=== PATIENT | male | born 1935 | race Caucasian/White ===

== ENCOUNTER 2022-01-30 10:27 | Observation (INO) | payer OTHER ==
--- OUTSIDE RECORDS SUMMARY | 2022-01-30 10:30 | XMS REPORT | Continuity of Care Document ---
:1935 Author Organization [facility] t Address [address] [place] [address] Care Team Providers Name Role Phone TOSIN Primary Care Physician Unavailable CHIRINOS Attending Clinician Unavailable Susan Attending Clinician Unavailable CHAZ Attending Clinician Unavailable Gudelia KERN Attending Clinician Unavailable MARGO Attending Clinician Unavailable ONEYDA Attending Clinician Unavailable TOSIN Attending Clinician Unavailable Susan Admitting Clinician Unavailable TOSIN Admitting Clinician Unavailable Payers Payer Name Policy Type Policy Number Effective Date Expiration Date S ource [facility] MEDICARE [id number] 2020 ADVANTAGE 00:00:00 [employer] CHOICE [id number] 2017 MEDICARE PPO 00:00:00 HU[employer]NA (MEDICARE [id number] REPLACEMENT/ADVANT AGE - PPO) Problems Condition Condition Condition Status Onset Resolution Last Treating Co mments Source Name Details Category Date Date Treatment Clinician Date Primary Primary Problem Active [place] 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, Lobe, bronchus Bronchus or lung or Lung Congestive Congestive Problem Active [facility] heart Heart da failure Failure Medical Group Acute Acute Problem Active [facility] bronchitis Bronchitis [facility] Rhinitis Rhinitis Problem Active [facility] Allergic Allergic Problem Active [facility] rhinitis [facility]initis [facility] Posterior Posterior Problem Active [facility] rhinorrhea Rhinorrhea [facility] Emphysemat Emphysemat Problem Active [facility] ous ous da bronchitis Bronchitis Me dical Group Chronic Chronic Problem Active [place] obstructiv Obstructiv da e e Medical pulmonary Pulmonary Grou p disease Disease with acute with Acute lower Lower respirator Respirator y y infection Infection Gastro-eso Gastro-eso Problem Active [facility] phageal phageal da reflux Reflux Medical disease Disease Group with with esophagiti Esophagiti s s Disorder 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 Esophagus Medi alphonse Group Wheezing Wheezing Problem Active [facility] Cough Cough Problem Active [facility] Hemoptysis Hemoptysis Problem Active [facility] Poisoning Poisoning Problem Active [facility] Respirator Respirator Problem Active [facility] y finding y Finding [facility] 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 Bronchitis [facility] Allergies, Adverse Reactions, Alerts Allergy Allergy Status Severity Reaction(s) Onset Inactive Treating Comm ents Source Name Type Date Date Clinician SPIRONOL DRUG Active High Other 2020-0 MD ACTONE INGREDI 6-12 Anderso 00:00: n 00 SPIRONOL DRUG Active High Other 2019-0 MD ACTONE INGREDI 6-12 Anderso 00:00: n 00 SHRIMP DRUG Active High Anaphylaxis 2017- MD INGREDI 0-29 Anderso 00:00: n 00 IODINE DRUG Active MD INGREDI 2-15 Anderso 00:00: n 00 Social History Smoking Status Start Date Stop Date Source Never Smoker [facility] Medications Ordered Filled Start Stop Current Ordering Indication Dosage Frequency Signature Comments Components Source Medication Medication Date Date Medication? Clinician (SIG) Name Name Amitiza 24 Amitiza 24 No Amitiza 24 [facility] mcg capsule mcg capsule mcg d a capsule Medical Group carvedilol carvedilol No carvedilol [facility] 6.25 mg 6.25 mg 6.25 mg da tablet tablet tablet Medical Group clonidine clonidine No clonidine [facility] HCl 0.2 mg HCl 0.2 mg HCl 0.2 mg da tablet 1 tablet 1 tablet 1 Med ical bid bid bid Group digoxin digoxin No digoxin [facility] Dulera 100 Dulera 100 No Dulera 100 [place] mcg-5 mcg-5 mcg-5 da mcg/actuati mcg/actuati mcg/actuat Medical on HFA on HFA ion HFA Group aerosol aerosol aerosol inhaler inhaler inhaler Inhale 1 Inhale 1 Inhale 1 puff(s) puff(s) puff(s) twice a day twice a day twice a by by day by inhalation inhalation inhalation route as route as route as directed directed directed for 30 for 30 for 30 days. days. days. Eliquis 2.5 Eliquis 2.5 No Eliquis [facility] mg tablet mg tablet 2.5 mg da tablet Medical Group furosemide furosemide No furosemide [facility] 40 mg 40 mg 40 mg da tablet tablet tablet Medical Group isosorbide isosorbide No isosorbide [facility] mononitrate mononitrate mononitrat da ER 30 mg ER 30 mg e ER 30 mg M edical tablet,exte tablet,exte tablet,ext Group nded nded ended release 24 release 24 release 24 hr hr hr levothyroxi levothyroxi No levothyrox [place] ne 150 mcg ne 150 mcg ine 150 da tablet tablet mcg tablet Medic al Group potassium potassium No potassium [place] chloride ER chloride ER chloride da 20 mEq 20 mEq ER 20 mEq Medica l tablet,exte tablet,exte tablet,ext Group nded nded ended release(par release(par release(pa t/cryst) t/cryst) rt/cryst) Suprep Suprep No Suprep [facility] Bowel Prep Bowel Prep Bowel Prep da Kit 17.5 Kit 17.5 Kit 17.5 Med ical gram-3.13 gram-3.13 gram-3.13 Group gram-1.6 gram-1.6 gram-1.6 gram oral gram oral gram oral solution solution solution tramadol 50 tramadol 50 No tramadol [facility] mg tablet mg tablet 50 mg da tablet Medical Group Uloric 40 Uloric 40 No Uloric 40 [place] mg tablet mg tablet mg tablet da Medical Group valsartan valsartan No valsartan [place] 80 mg 80 mg 80 mg da tablet tablet tablet Medical Group Immunizations Ordered Immunization Filled Immunization Date Status Commen ts Source Name Name influenza, high dose influenza, high 2012-05-09 Completed [facility] seasonal dose seasonal 00:00:00 Medical Seferino up Vital Signs Vital Name Observation Time Observation Value Comments Source WEIGHT 2020-03-15 13:27:00 83.4 kg BP Diastolic 2018-09-27 00:00:00 72 mm[Hg] [facility] Height 2018-09-27 00:00:00 70 [in_i] [facility] BMI (Body Mass 2018-09-27 00:00:00 28.3 kg/m2 [facility]) Group BP Systolic 2018-09-27 00:00:00 162 mm[Hg] [facility] Body Weight 2018-09-27 00:00:00 197.4 [lb_av] [facility] Procedures This patient has no known procedures. Encounters Start End Encounter Admission Attending Care Care Encounter Source Date/Time Date/Time Type Type Clinicians Facility Department ID 2021-07-21 2021-07-21 Outpatient [facility] [id number] 00:00:00 00:00:[address] 2021-07-21 2021-07-21 Outpatient [facility] [id number] 00:00:00 00:00:[address] 2021-06-13 2021-06-13 Outpatient EL CHIRINOS, MDA MDA [id number] 08:02:12 08:12:54 VITALIY cadet 2020-08-19 2020-08-19 Outpatient EL CHIRINOS, MDA MDA [id number] MD 12:00:24 15:34:11 VITALIY cadet 2020-08-16 2020-08-16 Outpatient EL CHIRINOS, MDA MDA [id number] MD 08:39:13 08:45:27 VITALIY cadet 2020-08-16 2020-08-16 Outpatient EL CHIRINOS, MDA MDA [id number] MD 00:00:00 00:00:00 VITALIY cadet 2020-06-26 2020-06-26 Outpatient Maluf_C [facility] [id number] [place] 02:40:00 02:40:00 118 [facility] 2020-06-14 2020-06-14 Outpatient EL CHIRINOS, MDA MDA [id number] 07:39:37 07:44:52 VITALIY cadet 2020-04-03 2020-04-03 Outpatient EL CHIRINOS, MDA MDA [id number] 00:00:00 00:00:00 VITALIY cadet 2020-03-15 2020-03-15 Outpatient EL SKOULIDIS, MDA MDA [id number] 13:25:00 14:50:57 NETTE cadet 2020-03-14 2020-03-14 Outpatient EL CHIRINOS, MDA MDA [id number] 09:22:39 09:22:39 VITALIY cadet 2020-03-14 2020-03-14 Outpatient EL KERN, DIOGENES MDA MDA [id number] 08:59:28 09:14:38 Jomar cadet 2020-03-14 2020-03-14 Outpatient JIA SRIVASTAVA MDA MDA [id number] 00:00:00 00:00:00 Jomar cadet 2020-02-01 2020-02-01 Outpatient EL CHIRINOS, MDA MDA [id number] 08:33:58 08:43:57 VITALIY cadet 2020-01-18 2020-01-18 Outpatient FELICITA CALL, MDA MDA [id number] 13:50:34 14:08:00 JOELLE cadet 2020-01-12 2020-01-12 Outpatient EL CHIRINOS, MDA MDA [id number] 12:03:01 12:03:01 VITALIY cadet 2019-08-18 2019-08-18 Outpatient Maluf_C [facility] [id number] [place] 05:02:00 05:02:[address] [place] [address] 2018-09-27 2018-09-27 [facility] [place] - [id number] [facility] 00:00:00 00:00:00 Stepan Franklin MD: [facility] [address], [address], [place] [address] , Ph. [phone] 2017-10-04 2017-10-04 [id number] . 19:59:00 19:59:00 [facility] Results Test Description Test Time Test Comments Results Result Comments Source Thyroid Stimulating Hormone (TSH) 2017-10-05 01:27:00 Test Item Value Reference Range Interpretation Comme nts TSH (test code = TSH) 6.80 mIU/mL 0.270-4.200 H Sed Rate ESR ([place])2017-10-05 00:48:00 Test Item Value Reference Range Interpretation Comments ESR (test code = HESR) 8 mm/Hr 0-9 N Lipid [id number] 21:21:00 Test Item Value Reference Range Interpretation Comments Cholesterol (test 166 mg/dL 0-200 N code = CHOL) Triglycerides (test 304 mg/dL 9-200 H Unable t o calculate, code = TRIG) Trig >400 HDL (test code = 43 mg/dL 40-60 N HDL) Chol/HDL (test code 3.9 Ratio 0.0-5.0 N = CHOLPHDL) LDL, Calculated 62 mg/dL 0-130 N (NOTE)RISK O F HEART (test code = LDLC) DISEASEPu blished by Swedish Heart AssociationAnal yte Optim al Boderline Increased RiskC HOL <200 200-239 >240TRI G <150 150-199 >200HDL Male: >60 <40HDL Female: >60 <50 LDL < 100 130-15 9 >160 LDL NEAR OPTIMAL IS 100- 129 VLDL (test code = 61 mg/dL 5-40 H VLDL) LDL/HDL (test code = 1 LDLPHDL) [id number] 21:21:00 Test Item Value Reference Range Interpretation Comments NT ProBnp (test code = PBNP) 2151 pg/mL 0-449 H Lipid [id number] 21:31:00 Test Item Value Reference Range Interpretation Comments Cholesterol (test 126 mg/dL 0-200 N code = CHOL) Triglycerides (test 268 mg/dL 9-200 H Unable t o calculate, code = TRIG) Trig >400 HDL (test code = 47 mg/dL 40-60 N HDL) Chol/HDL (test code 2.7 Ratio 0.0-5.0 N = CHOLPHDL) LDL, Calculated 25 mg/dL 0-130 N (NOTE)RISK O F HEART (test code = LDLC) DISEASEPu blished by Swedish Heart AssociationAnal yte Optim al Boderline Increased RiskC HOL <200 200-239 >240TRI G <150 150-199 >200HDL Male: >60 <40HDL Female: >60 <50 LDL < 100 130-15 9 >160 LDL NEAR OPTIMAL IS 100- 129 VLDL (test code = 54 mg/dL 5-40 H VLDL) LDL/HDL (test code = 1 LDLPHDL)
--- NOTE | 2022-01-30 11:35 | RAD REPORT ---
EXAM DESCRIPTION: RAD - Chest Single View - 01/30/2022 11:15 am CLINICAL HISTORY: SOB Chest pain. COMPARISON: CHEST SINGLE VIEW dated 12/12/2009; CHEST SINGLE VIEW dated 12/12/2009 FINDINGS: Portable technique limits examination quality. The lungs are grossly clear. The heart is upper limit of normal in size. No displaced fractures.Multi lead pacer/defibrillator device present. IMPRESSION: No acute intrathoracic process suspected.
[2022-01-30 11:41] LABS: Absolute Lymphocytes (CBC) 1.4 K/uL (0.7-4.9); Hematocrit 36.7 % (39.6-49.0); Lymphocytes % 13.6 % (15.3-44.8); MPV 7.6 fL (7.6-11.3); RBC Red Blood Cell Count 4.29 M/uL (4.33-5.43)
[2022-01-30 11:43] LABS: Protime INR 1.17
[2022-01-30 12:17] LABS: Albumin 3.7 g/dL (3.4-5.0); Bilirubin Direct 0.2 mg/dL (0-0.2); Bilirubin Total 0.9 mg/dL (0.2-1.0); Magnesium 2.1 mg/dL (1.8-2.4); Protein, Total 6.9 g/dL (6.4-8.2); Troponin High Sensitivity 44.8 pg/mL (<58.9)
[2022-01-30] MEDS ORDERED: ONDANSETRON 4 MG/2 ML VIAL ONE (12:48)
--- NOTE | 2022-01-30 13:18 | EDPHYS ---
Physician Documentation [facility] Name: Torrey Flores Age: 86 yrs Sex: Male : 1935 Arrival Date: 01/30/2022 Time: 10:30 Bed 20 Private MD: ED Physician Yamil Vogel HPI: 01/30 10:52 This 86 yrs old Male presents to ER via Unassigned with complaints of Shakiness. cp 10:52 The patient or guardian reports chest pain that is located primarily in the anterior cp chest wall. 10:52 Onset: this morning, now resolved. The pain does not radiate. Associated signs and cp symptoms: Pertinent positives: abdominal pain, dizziness, generalized shaking, Pertinent negatives: headache, near syncope, palpitations, syncope, vomiting. Duration: The patient or guardian reports a single episode, that is now resolved. Patient reports he called daughter this morning after he had sudden onset of shaking all over, dizziness, chest pain and abdominal pain. Patient reports he is being evaluated by DR Infante for abdominal pain times 4 months. Had recent blood tests performed and unsure of results. Historical: - Allergies: 11:40 Levaquin; jg9 11:40 Iodine; jg9 11:40 cefepime; jg9 - PMHx: 12:09 Hypothyroidism; Defibrillator; Congestive heart failure; jg9 - Immunization history:: Client reports receiving the 2nd dose of the Covid vaccine, Pneumococcal vaccine is up to date, Flu vaccine is up to date. - Social history:: Smoking status: Patient denies any tobacco usage or history of. ROS: 10:55 Constitutional: Negative for body aches, chills, fever, poor PO intake. cp 10:55 Eyes: Negative for injury, pain, redness, and discharge. cp 10:55 ENT: Negative for drainage from ear(s), ear pain, sore throat, difficulty swallowing, difficulty handling secretions. 10:55 Cardiovascular: Positive for chest pain. 10:55 Respiratory: Negative for cough, shortness of breath, wheezing. 10:55 Abdomen/GI: Positive for abdominal pain, Negative for vomiting, diarrhea, constipation. 10:55 : Negative for urinary symptoms. 10:55 Neuro: Positive for dizziness, Negative for altered mental status, loss of consciousness, syncope, weakness. 10:55 Psych: Positive for anxiety. 10:55 All other systems are negative. Exam: 11:00 Constitutional: The patient appears in no acute distress, alert, awake, cp non-diaphoretic, non-toxic, well developed, well nourished. 11:00 Head/Face: Normocephalic, atraumatic. cp 11:00 Eyes: Periorbital structures: appear normal, Pupils: equal, round, and reactive to light and accomodation, Extraocular movements: intact throughout, Conjunctiva: normal, no exudate, no injection, Sclera: no appreciated abnormality, Lids and lashes: appear normal, bilaterally. 11:00 ENT: External ear(s): are unremarkable, Nose: is normal, Mouth: Lips: moist, Oral mucosa: moist, Posterior pharynx: Airway: no evidence of obstruction, patent. 11:00 Neck: ROM/movement: is normal, is supple, without pain, no range of motions limitations. 11:00 Chest/axilla: Inspection: normal, Palpation: is normal, no crepitus, no tenderness. 11:00 Cardiovascular: Rate: normal, Rhythm: regular, Edema: is not appreciated, JVD: is not appreciated. 11:00 Respiratory: the patient does not display signs of respiratory distress, Respirations: normal, no use of accessory muscles, no retractions, labored breathing, is not present, Breath sounds: are clear throughout, no decreased breath sounds, no stridor, no wheezing. 11:00 Abdomen/GI: Inspection: abdomen appears normal, Bowel sounds: active, all quadrants, Palpation: abdomen is soft and non-tender, in all quadrants. 11:00 Back: pain, is absent, ROM is normal. 11:00 Neuro: Orientation: to person, place \\T\\ time. Mentation: is normal, Motor: moves all fours, strength is normal. 11:20 ECG was reviewed by the Attending Physician. cp Vital Signs: 10:45 BP 138 / 78; Pulse 69; Resp 12; Temp 98.5; Pulse Ox 98% on R/A; Weight 78.93 kg; Height jg9 5 ft. 11 in. (180.34 cm) (R); Pain 2/10; 11:30 BP 104 / 59; Pulse 71; Resp 13 S; Pulse Ox 99% on R/A; Pain 2/10; jg9 12:00 BP 108 / 71; Pulse 72; Resp 17; Pulse Ox 97% on R/A; 9 14:00 BP 134 / 80; Pulse 71; Resp 14 S; Pulse Ox 96% on R/A; 9 10:45 Body Mass Index 24.27 (78.93 kg, 180.34 cm) 9 MDM: 10:43 Patient medically screened. 13:00 Data reviewed: vital signs, nurses notes, lab test result(s), EKG, radiologic studies, cp plain films, and as a result, I will admit patient. 13:00 Test interpretation: by ED physician or midlevel provider: ECG, plain radiologic cp studies. Counseling: I had a detailed discussion with the patient and/or guardian regarding: the historical points, exam findings, and any diagnostic results supporting the discharge/admit diagnosis, lab results, radiology results, the need for further work-up and treatment in the hospital. Physician consultation: More Arroyo MD was called at 12:40, left message on [employer]. 01/30 10:51 Order name: Basic Metabolic Panel; Complete Time: 12:18 01/30 12:19 Interpretation: Normal except: NA 127; K 3.0; CL 86; GLUC 204; BUN 75; CRE 1.98; GFR cp 32; CA 8.4. 01/30 10:51 Order name: CBC with Diff; Complete Time: 11:53 01/30 11:53 Interpretation: Normal except: RBC 4.29; HGB 12.6; HCT 36.7; PLT 140; FLORINDA% 74.8; LYM% cp 13.6. 01/30 10:51 Order name: LFT's; Complete Time: 12:18 01/30 10:51 Order name: Magnesium; Complete Time: 12:18 01/30 10:51 Order name: NT PRO-BNP; Complete Time: 12:18 01/30 12:19 Interpretation: Abnormal: NT PRO-BNP 1826. 01/30 10:51 Order name: PT-INR; Complete Time: 11:53 01/30 10:51 Order name: Troponin HS; Complete Time: 12:18 01/30 13:39 Order name: COVID-19 SARS RT PCR (Document "Date of Onset" if Symptomatic) 01/30 14:00 Order name: CBC with Automated Diff EDMS 01/30 14:00 Order name: CBC with Automated Diff EDMS 01/30 14:00 Order name: Comprehensive Metabolic Panel EDMS 01/30 14:00 Order name: Comprehensive Metabolic Panel EDMS 01/30 14:00 Order name: Comprehensive Metabolic Panel EDMS 01/30 14:00 Order name: Comprehensive Metabolic Panel EDMS 01/30 10:51 Order name: XRAY Chest (1 view); Complete Time: 11:53 01/30 12:39 Order name: CT Head Brain wo Cont; Complete Time: 14:35 cp 01/30 14:35 Interpretation: Report reviewed. 01/30 14:02 Order name: Thyroid Stimulating Hormone EDMS 01/30 14:02 Order name: UR CREAT EDMS 01/30 14:02 Order name: UR SODIUM EDMS 01/30 14:02 Order name: Magnesium EDMS 01/30 14:02 Order name: Magnesium EDMS 01/30 14:02 Order name: Magnesium EDMS 01/30 14:02 Order name: Magnesium EDMS 01/30 14:02 Order name: Troponin High Sensitivity EDMS 01/30 14:02 Order name: Troponin High Sensitivity EDMS 01/30 14:02 Order name: Troponin High Sensitivity EDMS 01/30 15:08 Order name: Digoxin Level EDNM 01/30 10:51 Order name: EKG; Complete Time: 10:52 cp 01/30 10:51 Order name: Cardiac monitoring; Complete Time: 11:30 cp 01/30 10:51 Order name: EKG - Nurse/Tech; Complete Time: 11:20 01/30 10:51 Order name: IV Saline Lock; Complete Time: 12:40 cp 01/30 10:51 Order name: Labs collected and sent; Complete Time: 12:40 cp 01/30 10:51 Order name: O2 Sat Monitoring; Complete Time: 12:40 01/30 14:00 Order name: CONS Physician Consult EDNM 01/30 14:00 Order name: Heart Healthy EDMS EC:20 Rate is 73 beats/min. Rhythm is regular. QRS interval is prolonged at 192 msec. QT cp interval is normal. T waves are Inverted in leads I, aVL, V2. Interpreted by me. Reviewed by me. Administered Medications: 12:45 Drug: Zofran (Ondansetron) 4 mg Route: IVP; Infused Over: 2 mins; Site: right jg9 antecubital; 13:31 Follow up: Response: No adverse reaction jg9 14:24 Drug: Potassium Effervescent Tablet 50 mEq Route: PO; jg9 15:38 Follow up: Response: No adverse reaction jg9 14:24 Drug: NS 0.9% 1000 ml Route: IV; Rate: 50 ml/hr; Site: right antecubital; jg9 14:25 Drug: Potassium Chloride 20 mEq Route: IV; Rate: calculated rate; Site: right jg9 antecubital; Disposition: 15:51 Co-signature as Attending Physician, Yamil Vogel MD. rn Disposition Summary: 01/30/22 13:18 Hospitalization Ordered Hospitalization Status: Inpatient Admission cp Provider: More Arroyo cp Location: Telemetry/MedSurg (Inpatient) cp Condition: Fair cp Problem: new cp Symptoms: have improved cp Bed/Room Type: Standard cp Room Assignment: 405(01/30/22 15:10) eb Diagnosis - Acute kidney failure, unspecified cp - Hypo-osmolality and hyponatremia cp - Hypokalemia cp Forms: - Medication Reconciliation Form cp - SBAR form cp Signatures: Dispatcher [employer] EDYamil Mcdaniels MD MD rn Jasson Martinez PA PA cp Georgiana Bustillos Jennifer, RN RN jg9 Corrections: (The following items were deleted from the chart) 15:10 13:18 cp eb 01/31 11:53 01/30 13:00 Physician consultation: More Arroyo MD was called at 12:50, left message cp on voicemail, cp
--- NOTE | 2022-01-30 13:18 | ER ---
Nurse's Notes [facility] Name: Torrey Flores Age: 86 yrs Sex: Male : 1935 Arrival Date: 01/30/2022 Time: 10:30 Bed 20 Private MD: Diagnosis: Acute kidney failure, unspecified;Hypo-osmolality and hyponatremia;Hypokalemia Presentation: 01/30 10:45 Chief complaint: Patient states: I have been having abdominal pain for 4 months, I went [facility] to have a CT and blood work in [place] last week, awaiting results from Dr. Ervin, but they have not been able to find the source of my abdominal problems and today about 2 hr ago I started shaking uncontrollably and experiencing pain in my chest/abdomen. Coronavirus screen: Vaccine status: Patient reports receiving the 2nd dose of the covid vaccine. Ebola Screen: Patient negative for fever greater than or equal to 101.5 degrees Fahrenheit, and additional compatible Ebola Virus Disease symptoms Patient denies exposure to infectious person. Patient denies travel to an Ebola-affected area in the 21 days before illness onset. Initial Sepsis Screen: Does the patient meet any 2 criteria? No. Patient's initial sepsis screen is negative. Does the patient have a suspected source of infection? No. Patient's initial sepsis screen is negative. Risk Assessment: Do you want to hurt yourself or someone else? Patient reports no desire to harm self or others. Onset of symptoms is unknown. 10:45 Method Of Arrival: Ambulatory [facility] 10:45 Acuity: MARLEN 3 jg9 Triage Assessment: 10:45 General: Appears in no apparent distress. Behavior is calm, cooperative. Pain: 9 Complains of pain in abdomen-RUQ/LUQ Pain began 4 months ago. GI: Reports lower abdominal pain, nausea. Historical: - Allergies: 11:40 Levaquin; jg9 11:40 Iodine; jg9 11:40 cefepime; jg9 - PMHx: 12:09 Hypothyroidism; Defibrillator; Congestive heart failure; jg9 - Immunization history:: Client reports receiving the 2nd dose of the Covid vaccine, Pneumococcal vaccine is up to date, Flu vaccine is up to date. - Social history:: Smoking status: Patient denies any tobacco usage or history of. Screenin:53 Abuse screen: Denies threats or abuse. Denies injuries from another. Nutritional jg9 screening: No deficits noted. Nutritional screening: No deficits noted. Tuberculosis screening: No symptoms or risk factors identified. Fall Risk None identified. Assessment: 10:45 GI: Bowel sounds present X 4 quads. Abd is soft X 4 quads Abdomen is tender to jg9 palpation in right upper quadrant and left upper quadrant. Vital Signs: 10:45 BP 138 / 78; Pulse 69; Resp 12; Temp 98.5; Pulse Ox 98% on R/A; Weight 78.93 kg; Height jg9 5 ft. 11 in. (180.34 cm) (R); Pain 2/10; 11:30 BP 104 / 59; Pulse 71; Resp 13 S; Pulse Ox 99% on R/A; Pain 2/10; jg9 12:00 BP 108 / 71; Pulse 72; Resp 17; Pulse Ox 97% on R/A; jg9 14:00 BP 134 / 80; Pulse 71; Resp 14 S; Pulse Ox 96% on R/A; jg9 10:45 Body Mass Index 24.27 (78.93 kg, 180.34 cm) jg9 ED Course: 10:30 Patient arrived in ED. cl3 10:42 Ashley Moss, FELIX is Primary Nurse. jg9 10:43 Jasson Martinez PA is PHCP. cp 10:43 Yamil Vogel MD is Attending Physician. cp 10:45 Arm band placed on right wrist. jg9 10:55 Triage completed. jg9 11:00 Patient has correct armband on for positive identification. Bed in low position. Call jg9 light in reach. Side rails up X 1. 11:17 XRAY Chest (1 view) In Process Unspecified. EDMS 11:20 EKG done, by ED staff, reviewed by Jasson CASEY. em1 11:30 Inserted saline lock: 22 gauge in right antecubital area, using aseptic technique. jg9 Blood collected. 13:16 More Arroyo MD is Hospitalizing Provider. cp 13:57 CT Head Brain wo Cont In Process Unspecified. EDMS 15:54 No provider procedures requiring assistance completed. jg9 15:55 Patient admitted, IV remains in place. jg9 Administered Medications: 12:45 Drug: Zofran (Ondansetron) 4 mg Route: IVP; Infused Over: 2 mins; Site: right [facility] antecubital; 13:31 Follow up: Response: No adverse reaction jg9 14:24 Drug: Potassium Effervescent Tablet 50 mEq Route: PO; jg9 15:38 Follow up: Response: No adverse reaction jg9 14:24 Drug: NS 0.9% 1000 ml Route: IV; Rate: 50 ml/hr; Site: right antecubital; jg9 14:25 Drug: Potassium Chloride 20 mEq Route: IV; Rate: calculated rate; Site: right [facility] antecubital; Medication: 12:11 VIS not applicable for this client. jg9 Outcome: 13:18 Decision to Hospitalize by Provider. cp 15:54 Admitted to Med/surg accompanied by tech, via wheelchair, room 402, Report called to pascual Zambrano RN 15:55 Condition: stable jg9 15:56 Patient left the ED. jg9 Signatures: Dispatcher [employer] EDMichael Hernandez em1 Jasson Martinez PA PA Que Powell cl3 Ashley Moss, RN RN jg9
[2022-01-30] MEDS ORDERED: MORPHINE 2 MG/ML SYR IV PRN (13:55)
[2022-01-30] MEDS ORDERED: ACETAMINOPHEN 500 MG TAB PO PRN (13:55)
[2022-01-30] MEDS ORDERED: ONDANSETRON 4 MG/2 ML VIAL IV PRN (13:55)
[2022-01-30] MEDS ORDERED: KCL 20 MEQ/100 mL IVPB 100 ML IV ONE (13:55)
[2022-01-30] MEDS ORDERED: POTASSIUM 25 MEQ EFFERV TAB ONE (13:55)
[2022-01-30] MEDS ORDERED: ALBUTEROL 2.5 MG/3 ML NEB SOL NEB PRN ×2 (13:55→16:00)
[2022-01-30] MEDS ORDERED: NA CHLORIDE 0.9% 1,000 ML ONE (13:55)
[2022-01-30] MEDS ORDERED: LORAZEPAM 0.5 MG TABLET PO PRN (13:59)
[2022-01-30] MEDS ORDERED: HYDRALAZINE HCL 20 MG/ML VIAL IV PRN (13:59)
--- NOTE | 2022-01-30 14:12 | RAD REPORT ---
EXAM DESCRIPTION: CT - Head Brain Wo Cont - 01/30/2022 1:55 pm CLINICAL HISTORY: Dizziness, non-specific COMPARISON: No comparisons TECHNIQUE: Axial 5 mm thick images of the head were obtained without IV contrast. All CT scans are performed using dose optimization technique as appropriate and may include automated exposure control or mA/KV adjustment according to patient size. FINDINGS: No intracranial hemorrhage, mass, edema or shift of mid-line structures. No acute cortical based infarction. No cortical edema or sulcal effacement. Patient has mild to moderate for age atrop hy with moderate severity chronic ischemic change. No abnormal extra-axial fluid collections. Ventric les are in proportion to the volume loss. 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 Mastoid air cells and visualized portions of the paranasal sinuses are clear. No acute bony findings. Dense arterial tree calcifications are present. IMPRESSION: No intracranial hemorrhage or mass. No acute intracranial process seen. Atrophy, chronic ischemic change and old infarction changes are present as detailed. Chronic ischemic changes can mask nonhemorrhagic acute infarction. MR brain followup can be obtained if there is ongoing concern for acute ischemia.
--- NOTE | 2022-01-30 14:58 | P.HP ---
Certification for Inpatient Patient admitted to: Observation With expected LOS: <2 Midnights Patient will require the following post-hospital care: None Practitioner: I am a practitioner with admitting privileges, knowledge of patient current condition, hospital course, and medical plan of care. Services: Services provided to patient in accordance with Admission requirements found in Title 42 Section 412.3 of the Code of Federal Regulations Patient History Date of Service: 01/30/22 Reason for admission: Weakness and dizziness History of Present Illness: 86-year-old male with past medical history of hypertension, atrial fibrillation on chronic anticoagulation with Eliquis, history of presumed systolic CHF, follows with Dr. Genao at [place], who developed generalized weakness, feeling of dizziness and intermittent abdominal pain earlier today. He has called the daughter because of the feeling of unwell and was brought to the emergency room. He denies any chest pain now but states he had some mild feeling of chest pain earlier he is unable to elaborate more on the pattern of the chest pain. He denies any recent nausea or vomiting. He denies any recent change in his medication. He states he takes his medication regularly. On arrival in the emergency room EKG shows normal sinus rhythm with mild prolonged QTC. Work-up shows creatinine of 1.98, serum sodium of 127 and potassium of 3.0. He is seen today in the emergency room with his daughter. They state no prior history of kidney disease although daughter state he may have had some kidney problems during management of an infected left elbow plate 2 years ago. He has never had to see a kidney specialist - Past Medical/Surgical History -: Hypertension -: Systolic CHF -: Atrial fibrillation -: Chronic anticoagulation -: Hypothyroidism -: Recurrent gout -: AICD placement -: Left hand fracture complicated with infected plate - Family History Family History: Reviewed- Non-Contributory - Social History Smoking Status: Never smoker Smoking therapy provided: No Patient receptive to therapy: No Alcohol use: No CD- Drugs: No Caffeine use: No Place of Residence: Home Review of Systems 10-point ROS is otherwise unremarkable General: Weakness Cardiovascular: Chest Pain, Light Headedness Physical Examination - Physical Exam General: Alert, In no apparent distress, Oriented x3 HEENT: Atraumatic, Normocephalic Neck: Supple, 2+ carotid pulse no bruit, JVD not distended Respiratory: Clear to auscultation bilaterally, Normal air movement Cardiovascular: Normal pulses, Regular rate/rhythm, Normal S1 S2, Edema Gastrointestinal: Normal bowel sounds, Soft and benign, Non-distended Musculoskeletal: No clubbing, No swelling Neurological: Normal gait, Normal speech, Normal strength at 5/5 x4 extr, Sensation intact, Cranial nerves 3-12 intact - Studies Laboratory Data (last 24 hrs) 01/30/22 11:20: PT 12.9 H, INR 1.17 01/30/22 11:20: WBC 10.6, Hgb 12.6 L, Hct 36.7 L, Plt Count 140 L 01/30/22 11:20: Sodium 127 L, Potassium 3.0 L, BUN 75 H, Creatinine 1.98 H, Glucose 204 H, Magnesium 2.1, Total Bilirubin 0.9, AST 10 L, ALT 18, Alkaline Phosphatase 65 Assessment and Plan - Advance Directives Does patient have a Living Will: No Does patient have a Durable POA for Healthcare: No Physician Review: Patient Assessed, Agree with Above Assessment and Plan Physician Review Additional Text: Impression Symptomatic hypokalemia/hyponatremialikely due to chronic Lasix use History of CHF History of atrial fibrillation Chronic anticoagulation Hypertension Acute kidney injurylikely due to overdiuresis in setting of Entresto use Plan We will admit patient to observation status Will start gentle IV fluid but given history of CHF will limit rate to 40 cc/h over the next 1 L Hold Lasix for now Hold Entresto until creatinine improving Although creatinine at 1.98 unsure if this is patient baseline as family social and no previous record, will monitor with gentle hydration Replete potassium Monitor serum sodium with salt loading Resume digoxin and Coreg Obtain digoxin level Continue Eliquis at 2.5 mg twice daily Advance directivefull code Disposition possible home in a.m. if stable or improving creatinine Time Spent Managing Pts Care (In Minutes): 65
[2022-01-30] MEDS ORDERED: POTASSIUM 25 MEQ EFFERV TAB PO ONE (15:00)
[2022-01-30 16:29] VITALS: BMI 24.3
[2022-01-30 16:39] VITALS: O2SAT 96
[2022-01-30] MEDS: FAMOTIDINE 20 MG TAB PO SCH (16:57)
[2022-01-30] MEDS: NS KCL 20MEQ 20 MEQ/1,000 ML BAG IV SCH (16:57)
[2022-01-30 19:32] LABS: Magnesium 2.2 mg/dL (1.8-2.4); Thyroid Stimulating Hormone 2.24 uIU/mL (0.360-3.740); Troponin High Sensitivity 44.2 pg/mL (<58.9)
[2022-01-30] MEDS: carvediloL 6.25 MG TAB PO SCH (20:31)
[2022-01-30] MEDS: APIXABAN 2.5 MG TABLET PO SCH (20:32)
[2022-01-30] MEDS ORDERED: HEPARIN 5000 UNIT/ML 1 ML VIAL SQ SCH (21:00)
[2022-01-31 04:20] LABS: Absolute Lymphocytes (CBC) 1.8 K/uL (0.7-4.9); Hematocrit 38.3 % (39.6-49.0); Lymphocytes % 21.2 % (15.3-44.8); MPV 7.8 fL (7.6-11.3); RBC Red Blood Cell Count 4.43 M/uL (4.33-5.43)
[2022-01-31 04:46] LABS: Albumin 3.8 g/dL (3.4-5.0); Bilirubin Total 0.7 mg/dL (0.2-1.0); Potassium 3.9 mmol/L (3.5-5.1); Protein, Total 6.9 g/dL (6.4-8.2)
[2022-01-31] MEDS ORDERED: LEVOTHYROXINE SOD 0.05 MG TABLET PO SCH (06:30)
[2022-01-31] MEDS: APIXABAN 2.5 MG TABLET PO SCH (08:41)
[2022-01-31] MEDS: FAMOTIDINE 20 MG TAB PO SCH (08:41)
[2022-01-31] MEDS: carvediloL 6.25 MG TAB PO SCH (08:41)
[2022-01-31] MEDS ORDERED: ZINC SULFATE 220 MG CAP PO SCH (09:00)
[2022-01-31] MEDS ORDERED: DIGOXIN 0.125 MG TABLET PO SCH (09:00)
--- NOTE | 2022-01-31 11:31 | P.PN ---
Subjective Date of Service: 01/31/22 Chief Complaint: Weakness and dizziness Physical Examination - Vital Signs Temperature: 98.3 F Blood Pressure: 121/72 Pulse: 70 Respirations: 16 Pulse Ox (%): 97 - Studies Laboratory Data (last 24 hrs) 01/30/22 11:20: PT 12.9 H, INR 1.17 01/30/22 11:20: WBC 10.6, Hgb 12.6 L, Hct 36.7 L, Plt Count 140 L 01/30/22 11:20: Sodium 127 L, Potassium 3.0 L, BUN 75 H, Creatinine 1.98 H, Glucose 204 H, Magnesium 2.1, Total Bilirubin 0.9, AST 10 L, ALT 18, Alkaline Phosphatase 65 Assessment And Plan Physician Review: Patient Assessed, Agree with Above Assessment and Plan
--- NOTE | 2022-01-31 11:55 | P.CNS ---
Date of Consult: 01/31/22 Reason for Consult: CHRIS/ CKD Requesting Physician: Miguel Caldwell Chief Complaint: Weakness and dizziness History of Present Illness: 86-year-old male with past medical history of hypertension, atrial fibrillation on chronic anticoagulation with Eliquis, history of presumed systolic CHF, follows with Dr. Genao at [place], who developed generalized weakness, feeling of dizziness and intermittent abdominal pain earlier today. He has called the daughter because of the feeling of unwell and was brought to the emergency room. He denies any chest pain now but states he had some mild feeling of chest pain earlier he is unable to elaborate more on the pattern of the chest pain. He denies any recent nausea or vomiting. He denies any recent change in his medication. He states he takes his medication regularly. On arrival in the emergency room EKG shows normal sinus rhythm with mild prolonged QTC. Work-up shows creatinine of 1.98, serum sodium of 127 and potassium of 3.0. He is seen today in the emergency room with his daughter. They state no prior history of kidney disease although daughter state he may have had some kidney problems during management of an infected left elbow plate 2 years ago. He has never had to see a kidney specialist. 10:45 Chief complaint: Patient states: I have been having abdominal pain for 4 months, I went [facility] to have a CT and blood work in [place] last week, awaiting results from Dr. Ervin, but they have not been able to find the source of my abdominal problems and today about 2 hr ago I started shaking uncontrollably and experiencing pain in my chest/abdomen. Coronavirus screen: Vaccine status: Patient reports receiving the 2nd dose of the covid vaccine. Ebola Screen: Patient negative for fever greater than or equal to 101.5 degrees Fahrenheit, and additional compatible Ebola Virus Disease symptoms Patient denies exposure to infectious person. Patient denies travel to an Ebola- affected area in the 21 days before illness onset. Initial Sepsis Screen: Does the patient meet any 2 criteria? No. Patient's initial sepsis screen is negative. Does the patient have a suspected source of infection? No. Patient's initial sepsis screen is negative. Risk Assessment: Do you want to hurt yourself or someone else? Patient reports no desire to harm self or others. Onset of symptoms is unknown. Allergies cefepime Allergy (Verified 01/30/22 15:38) Anaphylaxis iodine Allergy (Verified 01/30/22 15:38) Anaphylaxis levofloxacin [From Levaquin] Allergy (Verified 01/30/22 15:38) Anaphylaxis Home medications list reviewed: Yes Home Medications: Apixaban [Eliquis] 2.5 mg PO DAILY 01/30/22 Clonidine HCl [Catapres*] 0.2 mg PO BID 01/30/22 Digoxin [Lanoxin] 0.125 mg PO DAILY 01/30/22 Febuxostat [Uloric] 40 mg PO DAILY 01/30/22 Furosemide [Lasix] 40 mg PO DAILY 01/30/22 Isosorbide Mononitrate [Isosorbide Mononitrate ER] 30 mg PO DAILY 01/30/22 Levothyroxine Sodium [Levothyroxine] 150 mcg PO DAILY 01/30/22 Potassium Chloride [Klor-Con 10] 10 meq PO DAILY 01/30/22 Valsartan [Diovan] 80 mg PO DAILY 01/30/22 carvediloL [Carvedilol] 6.25 mg PO DAILY 01/30/22 - Past Medical/Surgical History Diabetic: No -: Hypertension -: Systolic CHF -: Atrial fibrillation -: Chronic anticoagulation -: Hypothyroidism -: Recurrent gout -: AICD placement -: Left hand fracture complicated with infected plate - Social History Alcohol use: No CD- Drugs: No Caffeine use: No Place of Residence: Home Review of Systems 10-point ROS is otherwise unremarkable Physical Examination Temp Pulse Resp BP Pulse Ox 98.3 F 70 16 121/72 97 01/31/22 11:31 01/31/22 11:31 01/31/22 11:31 01/31/22 11:31 01/31/22 11:31 General: In no apparent distress, Oriented x3, Cooperative HEENT: Atraumatic Neck: Supple Respiratory: Clear to auscultation bilaterally Cardiovascular: No edema, Regular rate/rhythm Gastrointestinal: Soft and benign, Non-distended Musculoskeletal: No clubbing, No contractures Integumentary: No rashes, No cyanosis Neurological: Normal speech Laboratory Data (last 24 hrs) 01/30/22 11:20: WBC 10.6, Hgb 12.6 L, Hct 36.7 L, Plt Count 140 L 01/30/22 11:20: Sodium 127 L, Potassium 3.0 L, BUN 75 H, Creatinine 1.98 H, Glucose 204 H, Magnesium 2.1, Total Bilirubin 0.9, AST 10 L, ALT 18, Alkaline Phosphatase 65 Imagings Data: EXAM DESCRIPTION: RAD - Chest Single View - 01/30/2022 11:15 am CLINICAL HISTORY: SOB Chest pain. COMPARISON: CHEST SINGLE VIEW dated 12/12/2009; CHEST SINGLE VIEW dated 12/12/2009 FINDINGS: Portable technique limits examination quality. The lungs are grossly clear. The heart is upper limit of normal in size. No displaced fractures.Multi lead pacer/defibrillator device present. IMPRESSION: No acute intrathoracic process suspected. Conclusions/Impression: CHRIS likely due to hypovolemia/ hypotension CKD III -No NSAIDs -Continue gentle IVF Hypokalemia -Replete potassium HTN with CKD/ CHF -Continue Coreg Systolic CHF, chronic -Daily weight -Continue Coreg Gout -Monitor UA Case reviewed with Dr. Caldwell Thank you kindly for the consultation.
[2022-01-31] MEDS: NS KCL 20MEQ 20 MEQ/1,000 ML BAG IV SCH (12:00)
[2022-01-31 13:08] VITALS: BP 139/74; TEMP 98.2
--- NOTE | 2022-01-31 14:29 | P.DS ---
Admission Date: 01/30/22 Discharge Date: 01/31/22 Disposition: ROUTINE DISCHARGE Discharge Condition: GOOD Reason for Admission: Weakness and dizziness Brief History of Present Illness: 86-year-old male with past medical history of hypertension, atrial fibrillation on chronic anticoagulation with Eliquis, history of presumed systolic CHF, follows with Dr. Genao at [place], who developed generalized weakness, feeling of dizziness and intermittent abdominal pain earlier today. He has called the daughter because of the feeling of unwell and was brought to the emergency room. He denies any chest pain now but states he had some mild feeling of chest pain earlier he is unable to elaborate more on the pattern of the chest pain. He denies any recent nausea or vomiting. He denies any recent change in his medication. He states he takes his medication regularly. On arrival in the emergency room EKG shows normal sinus rhythm with mild prolonged QTC. Work-up shows creatinine of 1.98, serum sodium of 127 and potassium of 3.0. He is seen today in the emergency room with his daughter. They state no prior history of kidney disease although daughter state he may have had some kidney problems during management of an infected left elbow plate 2 years ago. He has never had to see a kidney specialist Hospital Course: Pt was admitted and he had IV fluid and he feels much improved today. Creatinine improved from 1.98 on admission to 1.6. He was evaluated by nephrology and was deemed stable for discharge as he was deemed to have issues with perhaps dehydration. he will follow-up with nephrology as scheduled outpatient as well as his primary care doctor. Present issue with volume depletion is deemed to have come from increased dose of Lasix therapy by his acting section chief. He will follow-up with his acting section chief for further recommendation. Vital Signs/Physical Exam: Temp Pulse Resp BP Pulse Ox 98.2 F 70 15 139/74 93 01/31/22 12:00 01/31/22 12:00 01/31/22 12:00 01/31/22 12:00 01/31/22 12:00 General: Alert, Oriented x3 HEENT: Atraumatic, Normocephalic Neck: Supple Respiratory: Normal air movement Cardiovascular: Regular rate/rhythm, Normal S1 S2 Gastrointestinal: Soft and benign Musculoskeletal: No swelling Neurological: Normal speech, Normal strength at 5/5 x4 extr Laboratory Data at Discharge: WBC 8.3 K/uL (4.3-10.9) D 01/31/22 03:47 Hgb 13.1 g/dL (13.6-17.9) L 01/31/22 03:47 Hct 38.3 % (39.6-49.0) L 01/31/22 03:47 Plt Count 119 K/uL (152-406) L 01/31/22 03:47 PT 12.9 SECONDS (9.5-12.5) H 01/30/22 11:20 INR 1.17 01/30/22 11:20 Sodium 135 mmol/L (136-145) L 01/31/22 03:47 Potassium 3.9 mmol/L (3.5-5.1) 01/31/22 03:47 BUN 57 mg/dL (7-18) H 01/31/22 03:47 Creatinine 1.65 mg/dL (0.55-1.3) H 01/31/22 03:47 Glucose 155 mg/dL (74-106) H 01/31/22 03:47 Magnesium 2.2 mg/dL (1.8-2.4) 01/30/22 19:02 Total Bilirubin 0.7 mg/dL (0.2-1.0) 01/31/22 03:47 AST 9 U/L (15-37) L 01/31/22 03:47 ALT 17 U/L (12-78) 01/31/22 03:47 Alkaline Phosphatase 58 U/L (45-117) 01/31/22 03:47 Home Medications: Apixaban [Eliquis] 2.5 mg PO DAILY 01/30/22 Clonidine HCl [Catapres*] 0.2 mg PO BID 01/30/22 Digoxin [Lanoxin] 0.125 mg PO DAILY 01/30/22 Febuxostat [Uloric] 40 mg PO DAILY 01/30/22 Furosemide [Lasix] 40 mg PO DAILY 01/30/22 Isosorbide Mononitrate [Isosorbide Mononitrate ER] 30 mg PO DAILY 01/30/22 Levothyroxine Sodium [Levothyroxine] 150 mcg PO DAILY 01/30/22 Potassium Chloride [Klor-Con 10] 10 meq PO DAILY 01/30/22 Valsartan [Diovan] 80 mg PO DAILY 01/30/22 carvediloL [Carvedilol] 6.25 mg PO DAILY 01/30/22 Diet: Regular Activity: Ad elsa Followup: Al Genao MD [Primary Care Provider] -
--- NOTE | 2022-01-31 17:29 | EKG ---
Test Date: 2022-01-30 Test Time: 11:14:57 Flow Manager: LYN MEASUREMENT RESULTS: Intervals: Rate: 73 SC: QRSD: 192 QT: 482 QTc: 531 [place]: P: SC: QRS: -46 T: 72 INTERPRETIVE STATEMENTS: Ventricular-paced rhythm with occasional premature ventricular complexes Abnormal ECG No previous ECG available for comparison Electronically Signed On 01-31-22 17:27:49 CDT by Prashant Wallcae
== END 2022-01-31 16:25 | disposition home or self-care (01) ==
LOC: ER 10:27 → ERHOLD 13:56 → 4TH 15:46
PROVIDERS: ADMIT Internal Medicine; ATTEND Internal Medicine Nephrology
DX: N17.9 Acute kidney failure, unspecified (principal); I13.0 Hypertensive heart and chronic kidney disease with heart failure and stage 1 through stage 4 chronic kidney disease, or unspecified chronic kidney disease; N18.30 Chronic kidney disease, stage 3 unspecified; I50.22 Chronic systolic (congestive) heart failure; E86.9 Volume depletion, unspecified; E87.6 Hypokalemia; E87.1 Hypo-osmolality and hyponatremia; I48.91 Unspecified atrial fibrillation; M10.9 Gout, unspecified; E03.9 Hypothyroidism, unspecified; Z95.810 Presence of automatic (implantable) cardiac defibrillator; Z79.01 Long term (current) use of anticoagulants; Z79.899 Other long term (current) drug therapy; Z88.1 Allergy status to other antibiotic agents; Z88.3 Allergy status to other anti-infective agents; Z91.041 Radiographic dye allergy status; Z20.822 Contact with and (suspected) exposure to COVID-19
CPT/HCPCS: 93005; 85025 ×2; 80048; 36415; 83735 ×2; 85610; 80162; 80076; 84443; 84484 ×3; 80053; 83880; 70450; 71045; 96375; 96374; 99285; U0003; J3480 ×3; J7030; J2405; G0378

== ENCOUNTER 2022-02-24 07:27 | Emergency (ER) | payer OTHER ==
[2022-02-24] MEDS ORDERED: HYDROCODONE/APAP 5/325 MG TAB ONE (08:30)
--- NOTE | 2022-02-24 08:41 | RAD REPORT ---
EXAM DESCRIPTION: RAD - Wrist Right 3 View - 02/24/2022 8:24 am CLINICAL HISTORY: Right wrist pain FINDINGS: No fracture or dislocation noted. Marked arthritis first carpometacarpal joint consisting of subchondral sclerosis, osteophytes and vikram nt space narrowing. There is also subluxation of the first metacarpal.
--- NOTE | 2022-02-24 10:28 | EDPHYS ---
Physician Documentation [facility] Name: Torrey Flores Age: 86 yrs Sex: Male : 1935 Arrival Date: 02/24/2022 Time: 07:28 Bed DIS3 Private MD: Abhinav Hoang T ED Physician Ben Daily HPI: 02/24 08:35 This 86 yrs old Male presents to ER via Ambulatory with complaints of Wrist Pain, Wrist ms3 swelling. 08:35 The patient or guardian reports pain, swelling. The complaints affect the right wrist ms3 diffusely. Context: The problem was sustained at home, resulted from an unknown cause. Onset: The symptoms/episode began/occurred 4 day(s) ago. Modifying factors: The symptoms are alleviated by nothing, the symptoms are aggravated by nothing. Associated signs and symptoms: The patient has no apparent associated signs or symptoms. Historical: - Allergies: 08:02 cefepime; jl7 08:02 Iodine; jl7 08:02 Levaquin; jl7 - Home Meds: 08:02 carvedilol oral [Active]; Digoxin Oral [Active]; Furosemide Oral [Active]; apixaban jl7 oral [Active]; 08:13 febuxostat oral [Active]; jl7 - PMHx: 08:02 Congestive heart failure; defibrillator; Hypothyroidism; lung cancer; Hypertensive jl7 disorder; Atrial fibrillation; - Social history:: Smoking status: Patient denies any tobacco usage or history of. ROS: 08:35 Constitutional: Negative for fever, and chills. Neck: Negative for injury, pain, and ms3 swelling, Cardiovascular: Negative for chest pain, and palpitations. Respiratory: Negative for shortness of breath, cough, wheezing, and pleuritic chest pain, Abdomen/GI: Negative for abdominal pain, nausea, vomiting, diarrhea, and constipation, MS/Extremity: Negative for injury and deformity. 08:35 MS/extremity: Positive for pain, swelling. 08:35 All other systems are negative. Exam: 08:35 Hand exam: Exam is positive for pain, swelling, tenderness, ROM: limited active range ms3 of motion due to pain, in the right wrist, limited passive range of motion due to pain, in the right wrist. 08:35 Constitutional: This is a well developed, well nourished patient who is awake, alert, and in no acute distress. Head/Face: Normocephalic, atraumatic. Neck: Trachea midline, no cervical lymphadenopathy. Supple, full range of motion without nuchal rigidity, or vertebral point tenderness. No Meningismus. Chest/axilla: Normal chest wall appearance and motion. Nontender with no deformity. Cardiovascular: Regular rate and rhythm with a normal S1 and S2. No gallops, murmurs, or rubs. Normal PMI, no JVD. No pulse deficits. Respiratory: Lungs have equal breath sounds bilaterally, clear to auscultation and percussion. No rales, rhonchi or wheezes noted. No increased work of breathing, no retractions or nasal flaring. Skin: Warm, dry with normal turgor. Normal color with no rashes, no lesions, and no evidence of cellulitis. Psych: Awake, alert, with orientation to person, place and time. Behavior, mood, and affect are within normal limits. 08:35 Musculoskeletal/extremity: Extremities: noted in the right wrist: pain, swelling, tenderness. Vital Signs: 07:59 BP 141 / 88; Pulse 70; Resp 15; Temp 97.9; Pulse Ox 96% on R/A; Weight 79.38 kg; Height jl7 6 ft. 0 in. (182.88 cm); Pain 10/10; 07:59 Body Mass Index 23.73 (79.38 kg, 182.88 cm) 7 MDM: 08:35 Differential diagnosis: Gout vs wrist sprain vs fracture vs cellulitis. Data reviewed:. ms3 10:27 Patient medically screened. ms3 02/24 08:12 Order name: XRAY Wrist RIGHT 3 view; Complete Time: 09:59 7 02/24 10:21 Order name: Wrist Splint; Complete Time: 10:38 ms3 Administered Medications: 08:45 Drug: HYDROcodone-acetaminophen 5 mg-325 mg 1 tabs Route: PO; 7 09:15 Follow up: Response: No adverse reaction; Pain is unchanged, physician notified jl7 10:37 Drug: Colchicine-Probenecid 2 tabs Route: PO; jl7 10:38 Follow up: Response: Medication administered at discharge. 7 Disposition Summary: 02/24/22 10:27 Discharge Ordered Location: Home ms3 Condition: Stable ms3 Diagnosis - Pain in right wrist ms3 Followup: ms3 - With: Abhinav Hoang MD - When: 1 - 2 days - Reason: Recheck today's complaints Discharge Instructions: - Discharge Summary Sheet jmm - Joint Pain ms3 - Arthritis ms3 - Musculoskeletal Pain ms3 Forms: - Medication Reconciliation Form ms3 - Thank You Letter ms3 - Antibiotic Education ms3 - Prescription Opioid Use ms3 Prescriptions: - colchicine 0.6 mg Oral tablet - take 1 tablet by ORAL route once daily; 10 tablet; Refills: 0, Product jmm Selection Permitted Signatures: Dispatcher [employer] Justus Ocampo RN RN jl7 Ben Daily DO DO ms3 Corrections: (The following items were deleted from the chart) 08:06 08:02 Home Meds: APIXAB; jl7 jl7 08:06 08:02 Home Meds: FUROSE; jl7 jl7 08:06 08:02 Home Meds: DIGOXI; jl7 jl7
--- NOTE | 2022-02-24 10:28 | ER ---
Nurse's Notes [facility] Name: Torrey Flores Age: 86 yrs Sex: Male : 1935 Arrival Date: 02/24/2022 Time: 07:28 Bed DIS3 Private MD: Abhinav Hoang T Diagnosis: Pain in right wrist Presentation: 02/24 07:59 Chief complaint: Patient states: Right wrist pain and swelling x 4 days, denies trauma. jl7 Hx of gout, denies having gout in this area before. Coronavirus screen: At this time, the client does not indicate any symptoms associated with coronavirus-19. Ebola Screen: No symptoms or risks identified at this time. Initial Sepsis Screen: Does the patient meet any 2 criteria? No. Patient's initial sepsis screen is negative. Does the patient have a suspected source of infection? No. Patient's initial sepsis screen is negative. Risk Assessment: Do you want to hurt yourself or someone else? Patient reports no desire to harm self or others. Onset of symptoms was February 20, 2022. Care prior to arrival: None. 07:59 Method Of Arrival: Ambulatory [facility] 07:59 Acuity: MARLEN 3 jl7 Triage Assessment: 08:02 General: Appears in no apparent distress. uncomfortable, Behavior is calm, cooperative, jl7 appropriate for age. Pain: Complains of pain in right wrist Pain currently is 10 out of 10 on a pain scale. Neuro: Level of Consciousness is awake, alert, obeys commands, Oriented to person, place, time, situation. Cardiovascular: Patient's skin is warm and dry. Respiratory: Airway is patent Respiratory effort is even, unlabored, Respiratory pattern is regular, symmetrical. Derm: Skin is pink, warm \T\ dry. Musculoskeletal: Swelling present in right wrist and hand. Historical: - Allergies: 08:02 cefepime; jl7 08:02 Iodine; jl7 08:02 Levaquin; jl7 - Home Meds: 08:02 carvedilol oral [Active]; Digoxin Oral [Active]; Furosemide Oral [Active]; apixaban jl7 oral [Active]; 08:13 febuxostat oral [Active]; jl7 - PMHx: 08:02 Congestive heart failure; defibrillator; Hypothyroidism; lung cancer; Hypertensive jl7 disorder; Atrial fibrillation; - Social history:: Smoking status: Patient denies any tobacco usage or history of. Screenin:38 Abuse screen: Denies threats or abuse. Denies injuries from another. Nutritional jl7 screening: No deficits noted. Tuberculosis screening: No symptoms or risk factors identified. Fall Risk None identified. Vital Signs: 07:59 BP 141 / 88; Pulse 70; Resp 15; Temp 97.9; Pulse Ox 96% on R/A; Weight 79.38 kg; Height jl7 6 ft. 0 in. (182.88 cm); Pain 10; 07:59 Body Mass Index 23.73 (79.38 kg, 182.88 cm) jl7 ED Course: 07:28 Patient arrived in ED. mr 07:29 Abhinav Hoang MD is Private Physician. mr 07:59 Justus Kearns, FELIX is Primary Nurse. jl7 08:02 Triage completed. jl7 08:02 Arm band placed on right wrist. jl7 08:03 Ben Daily DO is Attending Physician. ms3 08:04 Hu Aragon PA is PHCP. jmm 08:25 XRAY Wrist RIGHT 3 view In Process Unspecified. EDMS 10:27 Abhinav Hoang MD is Referral Physician. ms3 10:38 Patient has correct armband on for positive identification. jl7 10:38 No provider procedures requiring assistance completed. Patient did not have IV access jl7 during this emergency room visit. Velcro wrist splint applied to right wrist. Administered Medications: 08:45 Drug: HYDROcodone-acetaminophen 5 mg-325 mg 1 tabs Route: PO; jl7 09:15 Follow up: Response: No adverse reaction; Pain is unchanged, physician notified jl7 10:37 Drug: Colchicine-Probenecid 2 tabs Route: PO; jl7 10:38 Follow up: Response: Medication administered at discharge. jl7 Medication: 10:38 VIS not applicable for this client. jl7 Outcome: 10:27 Discharge ordered by . ms3 10:38 Discharged to home ambulatory, with family. jl7 10:38 Condition: stable 10:38 Discharge instructions given to patient, Instructed on discharge instructions, follow up and referral plans. medication usage, Demonstrated understanding of instructions, follow-up care, medications, Prescriptions given X 1. 10:39 Patient left the ED. jl7 Signatures: Dispatcher [employer] EDHu Colon PA PA jmm Rivera, Mary mr Justus Kearns, RN RN jl7 Ben Daily DO DO ms3 Corrections: (The following items were deleted from the chart) 08:06 08:02 Home Meds: APIXAB; jl7 jl7 08:06 08:02 Home Meds: FUROSE; jl7 jl7 08:06 08:02 Home Meds: DIGOXI; jl7 jl7
[2022-02-24] MEDS ORDERED: COLCHICINE 0.6 MG TAB ONE (10:41)
[2022-02-24 10:49] VITALS: BP 141/88; TEMP 97.9; O2SAT 96
== END 2022-02-24 10:39 | disposition home or self-care (01) ==
LOC: ER 07:27
DX: M25.531 Pain in right wrist (principal); Z88.1 Allergy status to other antibiotic agents; Z91.048 Other nonmedicinal substance allergy status

== ENCOUNTER 2023-07-01 19:38 | Inpatient (IN) | payer OTHER ==
--- OUTSIDE RECORDS SUMMARY | 2023-07-01 19:48 | XMS REPORT | Continuity of Care Document ---
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 MATE Zyloprim 2019-0 No Notes: Memoria 1-14 (Same as: l 15:00: Zyloprim) apixaban 2018-0 No Notes: Memoria 1-14 Same as: l 15:00: Eliquis Saline 2019-0 No Notes: Memoria Flush 0.9% 1-14 (Same as: l 15:00: BD Posiflush) valsartan 2018-0 No Notes: Memori a 1-14 Same as l 15:00: Diovan lubiproston 2019-0 No 24 Memori a e 1-14 microgram, l 15:00: 3 cap, [place] 00 Route: PO, Drug form: CAP, BID, Dosing Weight 94.545, kg, Start date: 08/22/18 9:00:00 CARGO MATE, Duration: 30 day, Stop date: 09/20/18 17:00:00 CARGO MATE Lasix 2019-0 No Notes: Memoria 1-14 (Same as: l 14:00: Lasix) MEDICATION WASTE Product Size: 40 mg Product Wasted: ___ mg Potassium 2019-0 No 10 mEq, 1 Mem oria Chloride 1-14 tab, l 14:00: Route: PO, [place] 00 Drug form: ERTAB, Breakfast, Dosing Weight 94.545, kg, Start date: 08/22/18 8:00:00 CARGO MATE, Duration: 30 day, Stop date: 09/20/18 8:00:00 CARGO MATE pantoprazol 2019-0 No 40 mg, 1 Me moria e 1-14 tab, l 13:30: Route: PO, [place] Drug form: ECTAB, Before Breakfast, Dosing Weight 94.545, kg, Start date: 08/22/18 7:30:00 CARGO MATE, Duration: 30 day, Stop date: 09/20/18 7:30:00 CARGO MATE Isosorbide 2019-0 No 30 mg, 1 Mem oria 1-14 tab, l 13:30: Route: PO, [place] Drug form: ERTAB, Before Breakfast, Dosing Weight 94.545, kg, Start date: 08/22/18 7:30:00 CARGO MATE, Duration: 30 day, Stop date: 09/20/18 7:30:00 CARGO MATE albuterol 2018-0 No Notes: SEE Me moria 1-14 RT l 13:00: DOCUMENTAT [place] ION (Same as: Proventil) Thyroxine 0 No 150 Memoria 1-14 microgram, l 12:30: 2 tab, [place] Route: PO, Drug form: TAB, Q630AM, Dosing Weight 94.545, kg, Start date: 08/22/18 6:30:00 CARGO MATE, Duration: 30 day, Stop date: 09/20/18 6:30:00 CARGO MATE Pulmicort 2018- No Notes: Memori a Respules 1-14 (Same As: l 08:10: Pulmicort [place] respule). Clonidine 2018-0 No Notes: Memori a Hydrochlori 1-14 (Same As: l de 0.2 MG 05:00: Catapres) Her gutierrez Oral Tablet 00 Coreg No 6.25 mg, 1 Memori a 1-14 tab, l 05:00: Route: PO, [place] Drug form: TAB, QPM, Dosing Weight 94.545, kg, Start date: 08/21/18 23:00:00 CARGO MATE, Duration: 30 day, Stop date: 09/20/18 14:00:00 CARGO MATE BD Normal 2018-0 No Notes: Memori a Saline 1-14 (Same as: l Flush 04:24: BD [place] Posiflush) Docusate 2018-0 No 100 mg, 1 Castillo deisi Sodium 100 1-14 cap, l MG Oral 03:53: Route: PO, Herm keerthi Capsule 00 Drug form: [Colace] CAP, BID, Dosing Weight 94.545, kg, PRN Constipati on, Start date: 08/21/18 21:53:00 CARGO MATE, Duration: 30 day, Stop date: 09/20/18 21:52:00 CARGO MATE lubiproston Yes 24 Memori a e 24 mcg 1-14 microgram l oral 03:52: = 1 cap, [place] capsule 00 PO, BID, # 60 cap, 0 Refill(s) Albuterol No Notes: SEE Me moria 0.83 MG/ML 1-14 RT l Inhalant 03:52: DOCUMENTAT Her gutierrez Solution 00 ION (Same as: Proventil) Saline No Notes: Memoria Flush 0.9% 1-14 (Same as: l 03:39: BD [place] Posiflush) pantoprazol Yes 40 mg, PO, Memoria e 1-14 Daily, 0 l 02:37: Refill(s) [place] 00 Potassium Yes 10 mEq, Memor ia Chloride 1-14 PO, Daily, l 02:37: 0 [place] 00 Refill(s) Lasix No Notes: Memoria 1-13 (Same as: l 23:43: Lasix) [place] MEDICATION WASTE Product Size: 40 mg Product Wasted: 0___ mg Solu-Medrol No Notes: Castillo deisi -13 (Same l 22:14: as:Solu-ME [place] 00 DROL, A-Methapre d) Benadryl No Notes: Memoria 1-13 (Same as: l 22:14: Benadryl) [place] Lasix No Notes: Memoria 1-11 (Same as: l 21:01: Lasix) [place] MEDICATION WASTE Product Size: 40 mg Product Wasted: ___ mg Saline No Notes: Memoria Flush 0.9% 11 (Same as: l 19:36: BD [place] Posiflush) polyethylen No 17 gm, PO, Memoria e glycol 1-08 TID, X 30 l 3350 oral 17:21: day, # 90 Her gutierrez powder for 16 ea, 0 reconstitut Refill(s), ion Pharmacy: [facility] polyethylen No 17 gm, PO, Memoria e glycol 1-08 Daily, X l 3350 oral 17:16: 14 day, # Her gutierrez powder for 00 14 ea, 0 reconstitut Refill(s), ion Pharmacy: [facility] pantoprazol No 40 mg = 1 M emoria e 40 mg 1-08 tab, PO, l oral 17:16: Before [place] enteric 00 Dinner, # coated 30 tab, 0 tablet Refill(s), Pharmacy: [facility] lubiproston No 24 Memori a e 24 mcg 1-08 microgram l oral 17:16: = 1 cap, [place] capsule 00 PO, BID, # 60 cap, 0 Refill(s), Pharmacy: [facility] Potassium No 10 mEq = 1 Me moria Chloride 10 1-08 tab, PO, l MEQ 17:16: Daily, [place] Extended 00 take with Release lasix, # Tablet 30 tab, 1 [Klor-Con] Refill(s), Pharmacy: [facility] potassium No Notes: Memori a chloride 20 1-08 (Same as: l mEq oral 17:12: K-Dur 20) Herm keerthi tablet, 00 For extended patients release unable to swallow tablet, dissolve in one half glass of water. Allow about 2 minutes for the tablets to disintegra te. Stir before giving to prepare slurry and administer . Please exclude Patient s with feeding tube less than 14 [place] (Dobhoff, J-tube etc) and pediatric and patients. Lasix No Notes: Memoria 1-08 (Same as: l 15:00: Lasix) May [place] 00 cause GI upset. Give with food or milk. NS 1000 mL No 1,000 mL, Me moria -08 Rate: 150 l 14:48: ml/hr, [place] 00 Infuse over: 6.7 hr, Route: IV, Dosing Weight 93.727 kg, Total Volume: 1,000, Start date: 08/16/18 8:48:00 CARGO MATE, Duration: 30 day, Stop date: 09/15/18 8:47:00 CARGO MATE, 2.19, m2 Amitiza No Notes: Memoria 1-07 Same as l 23:00: Amitiza [place] 00 (Do Not Crush) Non Formulary Miralax No Notes: Memoria 1-07 Dissolve l 15:00: in 8 oz of [place] 00 water or juice. (Same as: Miralax) Zyloprim No Notes: Memoria 1-07 (Same as: l 15:00: Zyloprim) [place] valsartan No Notes: Memori a 1- Same as l 15:00: Diovan [place] 00 Isosorbide No Notes: Memor ia 08-15 (Same l 15:00: as:Imdur) [place] "Do Not Crush" Take on empty stomach/ full glass of water. Do not crush Uloric No 40 mg, Memoria 08-15 Route: PO, l 15:00: Drug form: [place] 00 TAB, Daily, Dosing Weight 93.727, kg, Start date: 08/15/18 9:00:00 CARGO MATE, Duration: 30 day, Stop date: 09/13/18 9:00:00 CARGO MATE apixaban No Notes: Memoria -07 Same as: l 15:00: Eliquis [place] 00 Thyroxine No Notes: Memori a -07 Take 1 l 12:30: hour [place] 00 before or 2 hours after meal; Enteral feeds may interefere with the absorption of this medication . (Same as: Levothroid ) Dulera 100 No 2 puff, Castillo deisi mcg-5 08-14 Route: l mcg/inh 23:00: INHALER, Joe n inhalation 00 Drug Form: aerosol AERO, Dosing Weight 93.727, kg, BID, Start date: 08/14/18 17:00:00 CARGO MATE, Duration: 30 day, Stop date: 09/13/18 9:00:00 CARGO MATE Protonix No Notes: Memoria 1-06 Tablet l 22:30: should not [place] 00 be chewed or crushed. (Same as: Protonix) Lasix No Notes: Memoria 1-06 (Same as: l 22:00: Lasix) [place] 00 MEDICATION WASTE Product Size: 40 mg Product Wasted: ___ mg albuterol No Notes: SEE Me moria 08-14 RT l 21:00: DOCUMENTAT [place] ION (Same as: Proventil) Clonidine No Notes: Memori a Hydrochlori 08-14 (Same As: l de 0.2 MG 20:00: Catapres) Her gutierrez Oral Tablet 00 Coreg No Notes: Memoria 08-14 Give with l 20:00: food. [place] 00 (Same As: Coreg) Pulmicort No Notes: Memori a Respules 08-14 (Same As: l 19:24: Pulmicort [place] 00 respule). Albuterol No Notes: Memori a 0.833 MG/ML 08-14 (Same as: l / 18:06: Duoneb) Ipratropium 00 [place] 0.167 MG/ML Inhalant Solution Lactulose No Notes: Memori a 667 MG/ML 08-14 (Same l Oral 16:23: as:Chronul [place] Solution 00 ac) Acetaminoph No Notes: Do M emoria en 08-14 not exceed l 16:21: 4 gm/day. (Same as: Tylenol) Ondansetron No Notes: Castillo deisi 08-14 (Same as: l 16:21: Zofran) MEDICATION WASTE Product Size: 4 mg Product Wasted: ___ mg Lasix No 40 mg, Memoria 08-14 Route: l 14:12: IVP, Drug form: INJ, ONCE, Dosing Weight 93.636, kg, Priority: STAT, Start date: 08/14/18 8:12:00 CARGO MATE, Stop date: 08/14/18 8:12:00 CARGO MATE carvedilol Yes Vianca Stacy 1 tab(s) Memoria 08-12 l 03:01: valsartan Yes Hyon Regis 1 tab(s) Memoria 04 l 03:01: levothyroxi Yes Vianca Stacy 1 tab(s) Memoria ne 1-04 l 03:01: furosemide 2019-0 Yes Hyshruti Stacy 1 tab(s) Memoria 1-04 l 03:01: isosorbide 2018-0 Yes Hyshruti Stacy 1 tab(s) Memoria mononitrate 1-04 l 03:01: clonidine 2019-0 Yes Hyshruti Stacy 1 tab(s) Memoria 1-04 l 03:01: Dulera 2018-0 Yes Vianca Stacy 2 puff(s) M emoria 1-04 l 03:01: Eliquis 2018-0 Yes Hyshruti Stacy 1 tab(s) M emoria 1-04 l 03:01: Suprep 2018-0 Yes Vianca Stacy As Memori a Bowel Prep -02 directed l Kit 00:00: Magnesium 2017-08 Yes Ali Zakir 150 ml M emoria Citrate 2-10 l 00:00: Histex-DM 2017-08 Yes Ali Zakir 5ml Mem oria 2-05 l 00:00: Lactulose 2017-08 Yes Ali Zakir 15 ml Me moria 2-03 l 00:00: Acetaminoph 2017-08 No 1-2 tab, Me moria en 325 MG / 0-28 PO, Q4-6H, l Hydrocodone 03:59: PRN Pain, H ermann Bitartrate 00 # 20 tab, 5 MG Oral 0 Tablet Refill(s) [Dudley 5/325] Ondansetron 2017-08 No 4 mg, Memor ia 0-28 Route: l 00:36: IVP, Drug [place] 00 form: INJ, ONCE, Dosing Weight 90.727, kg, Priority: STAT, Start date: 06/04/18 19:36:00 CDT, Stop date: 06/04/18 19:36:00 CDT Sodium 2017-08 No 500 mL, Memoria Chloride 0-28 500 ml/hr, l 0.9% 00:36: Infuse [place] (Bolus) IV 00 Over: 1 hr, Route: IV, ONCE, Priority: STAT, Dosing Weight 90.727 kg, Start date: 06/04/18 19:36:00 CDT, Stop date: 06/04/18 19:36:00 CDT Morphine 2018-1 No 4 mg, Memoria 0-28 Route: l 00:36: IVP, ONCE, Dosing Weight 90.727, kg, Priority: STAT, Start date: 06/04/18 19:36:00 CDT, Stop date: 06/04/18 19:36:00 CDT Valsartan 2017- Yes Ali Zakir TAKE 1 M emoria 3-28 TABLET l 02:46: DAILY Furosemide 2017-0 Yes Ali Zakir TAKE 1 Memoria 3-28 TABLET l 02:46: DAILY Isosorbide 2017- Yes Ali Zakir TAKE 1 Memoria Mononitrate 3-28 TABLET l CR 02:46: TWICE A DAY Dulera Yes Ali Zakir 2 puffs Mem oria 3-28 l 02:46: Amiodarone 2017- Yes Ali Zakir TAKE 1 Memoria HCl 3-28 TABLET l 02:46: DAILY Clonidine 2017-0 Yes Ali Zakir 1 tablet Memoria HCl 3-28 l 02:46: Albuterol 2017-0 Yes Ali Zakir 3 ml Mem oria Sulfate 3-28 l 02:46: Levothyroxi 2018-0 Yes Ali Zakir TAKE 1 Memoria ne Sodium 3-28 TABLET l 02:46: DAILY Valsartan 2017-0 Yes Ali Zakir 1 tablet Memoria 3-28 l 02:46: Eliquis 2018-0 Yes Ali Zakir 1 tablet M emoria 3-28 MD l 00:00: Dulera 2017-0 Yes Ali Zakir 2 puffs Mem oria 3-28 MD l 00:00: Rosuvastati 2018-0 Yes Ali Zakir 1 tablet Memoria n Calcium 3-28 l 00:00: Valsartan 2018-0 Yes Ali Zakir 1 tablet Memoria 3-28 MD l 00:00: Ipratropium 2018-0 Yes Ali Zakir 3 ml M emoria -Albuterol 3-28 MD l 00:00: Furosemide 2018-0 Yes Ali Zakir 1 tablet Memoria 3-28 l 00:00: Amiodarone 2018-0 Yes Ali Zakir 1 tablet Memoria HCl 3-28 l 00:00: Uloric 2018-0 Yes Ali Zakir 1 tablet Me moria 3-28 l 00:00: Isosorbide 2018-0 Yes Ali Zakir 1 tablet Memoria Mononitrate 3-28 MD in the l 00:00: morning Levothyroxi 2017-0 Yes Ali Zakir 1 tablet Memoria ne Sodium 3-28 on an l 00:00: empty stomach in the morning Carvedilol 2017- Yes Ali Zakir 1 tablet Memoria 3-28 MD l 00:00: PredniSONE 2017- Yes Ali Zakir 2 tablet Memoria 1-08 l 00:00: MiraLax 2018-0 Yes Ali Zakir as Memor ia 1-08 directed l 00:00: Famotidine 2016- Yes 20 mg = 1 Me moria 20 MG Oral 04 tab, PO, l Tablet 16:02: BID, # 14 Joe n [Pepcid] 00 tab, 0 Refill(s) Sulfamethox Yes 1 tab, PO, Memoria azole 800 04 BID, X 10 l MG / 16:02: day, # 20 [place] Trimethopri 00 tab, 0 m 160 MG Refill(s) Oral Tablet [Bactrim] Cephalexin Yes 500 mg = 1 M emoria 500 MG Oral 04-12 cap, PO, l Capsule 16:02: QID, X 10 Luz Maria nn [Keflex] 00 day, # 40 cap, 0 Refill(s) Albuterol Yes Ali Zakir 3 ml Mem oria Sulfate 6-23 l 02:45: Sodium No 25 mL, Memoria Chloride 12-05 Route: IV, l 0.9% IV 05:36: Start date: 12/05/16 0:36:00 CDT, Duration: 30 day, Stop date: 01/04/17 0:35:00 CDT, PRN Line Flush Zofran No 4 mg, Memoria 12-05 Route: l 04:09: IVP, Drug form: INJ, ONCE, Dosing Weight 89.591, kg, Priority: STAT, Start date: 12/04/16 23:09:00 CDT, Stop date: 12/04/16 23:09:00 CDT Saline 2016-0 No Notes: Memoria Flush 0.9% 12-05 (Same as: l 03:23: BD Posiflush) Furosemide Yes Ali Zakir 1 tab M emoria 4-25 l 02:45: Valsartan Yes Ali Zakir 1 tablet Memoria 4-25 l 02:45: Isosorbide Yes Ali Zakir 1 tablet Memoria Dinitrate 4-25 l 02:45: Amiodarone Yes Ali Zakir 1 tablet Memoria HCl 4-25 l 02:45: Crestor Yes Ali Zakir 1 tablet M emoria 4-25 l 02:45: Apixaban Yes Ali Zakir 1 tablet Memoria 4-25 l 02:45: [place] 18 Coreg Yes Ali Zakir 1 tablet Mem oria 4-25 l 02:45: Levofloxaci Yes Ali Zakir 1 tablet Memoria n 4-24 l 00:00: Levofloxaci 0 Yes Ali Zakir 1 tablet Memoria n 4-24 l 00:00: Furosemide Yes Ali Zakir 1 tab M emoria 4-04 l 02:45: Nebulizer Yes Ali Zakir as Mem oria 4-03 directed l 00:00: Azithromyci 2015-08 Yes Ali Zakir 2 tablets Memoria n 1-28 on the l 00:00: first day, then 1 tablet daily for 4 days Dulera 2015-08 Yes Ali Zakir 2 puffs Mem oria 0-12 l 00:00: Crestor 2015-08 Yes Ali Zakir 1 tablet M emoria 0-12 l 00:00: Crestor 2015-08 Yes Ali Zakir 1 tablet M emoria 0-12 l 00:00: Amiodarone 2015-08 Yes Ali Zakir 1 tablet Memoria HCl 0-12 l 00:00: Coreg 2015-08 Yes Ali Zakir as Memoria 0-12 directed l 00:00: Dulera 2015-08 Yes Ali Zakir 2 puffs Mem oria 0-12 l 00:00: Coreg 2015-08 Yes Ali Zakir as Memoria 0-12 directed l 00:00: Amiodarone 2015-08 Yes Ali Zakir 1 tablet Memoria HCl 0-12 l 00:00: Aspirin Yes Ali Zakir 1 tablet M emoria 8-29 l 00:00: Dulera Yes Ali Zakir 2 puffs Mem oria 8-29 l 00:00: Uloric Yes Ali Zakir 1 tablet Me moria 8-29 l 00:00: Levothyroxi Yes Ali Zakir 1 tablet Memoria ne Sodium 8-13 l 02:45: Uloric Yes Ali Zakir 1 tablet Me moria 6-01 l 02:45: Aspirin Yes Ali Zakir 1 tablet M emoria 6-01 l 02:45: Dulera Yes Ali Zakir 2 puffs Mem oria 6-01 l 02:45: Thyroxine No Notes: Memori a 2-29 Take 1 l 12:30: hour before or 2 hours after meal; Enteral feeds may interefere with the absorption of this medication . (Same as: Levothroid ) Lipitor No Notes: Memoria 2-29 (Same As: l 03:00: Lipitor) Crestor No 10 mg, Memoria 2-29 Route: PO, l 03:00: Drug form: TAB, Bedtime, Dosing Weight 91.455, kg, Start date: 10/06/15 21:00:00, Duration: 30 day, Stop date: 11/04/15 21:00:00 apixaban Yes 2.5 mg = 1 Mem oria 2.5 mg oral 2-29 tab, PO, l tablet 01:21: Q12H, 0 [place] 00 Refill(s) Coreg No Notes: Memoria - Give with l 20:00: food. [place] 00 (Same As: Coreg) Eliquis No Notes: Memoria - Same as: l 15:16: Eliquis [place] 00 valsartan No Notes: Memori a 10-06 Same as l 15:00: Diovan [place] 00 Dulera 100 No 2 puff, Castillo deisi mcg-5 10-06 Route: l mcg/inh 15:00: INHALER, Joe n inhalation 00 Drug Form: aerosol AERO, Dosing Weight 91.455, kg, BID, Start date: 10/06/15 9:00:00, Duration: 30 day, Stop date: 11/04/15 17:00:00 Furosemide No Notes: Memor ia 40 MG Oral 10-06 (Same as: l Tablet 15:00: Lasix) May Luz Maria nn cause GI upset. Give with food or milk. Isosorbide No Notes: Memor ia - (Same l 15:00: as:Imdur) [place] 00 "Do Not Crush" Take on empty stomach/ full glass of water. Do not crush Uloric No Notes: Memoria - Same as: l 15:00: Uloric [place] 00 Non-Formul beltran Clonidine No Notes: Memori a Hydrochlori 10-06 (Same As: l de 0.2 MG 15:00: Catapres) Her gutierrez Oral Tablet 00 Aspirin 81 No Notes: Do Me moria MG Enteric 10-06 not crush l Coated 15:00: or chew. [place] Tablet 00 (Same As: Ecotrin) Amiodarone No Notes: Memor ia - (Same as: l 15:00: Cordarone) [place] Docusate No Notes: Memoria 2- (Same as: l 13:18: Colace) [place] (Do Not Crush) Acetaminoph No Notes: Do M emoria en 10-06 not exceed l 13:18: 4 gm/day. [place] 00 (Same as: Tylenol) Coreg Yes 6.25 mg, Memoria - PO, Daily, l 11:20: Pt takes this at 2pm, 0 Refill(s) valsartan Yes 80 mg = 1 Mem oria 80 mg oral -28 tab, PO, l tablet 11:20: Daily, # [place] 00 90 tab, 0 Refill(s) Aspirin 81 Yes 81 mg = 1 Me moria MG Enteric - tab, PO, l Coated 11:20: BID, # 90 Joe n Tablet 00 tab, 3 Refill(s) Lasix No Notes: Memoria 10-06 (Same as: l 09:00: Lasix) MEDICATION WASTE Product Size: 40 mg Product Wasted: 0__ mg Sodium No 25 mL, Memoria Chloride 10-06 Route: IV, l 0.9% IV 08:35: Start date: 10/06/15 2:35:00, Duration: 30 day, Stop date: 11/05/15 3:34:00, PRN Line Flush BD Normal No Notes: Memori a Saline 10-06 (Same as: l Flush 08:34: BD Posiflush) NS 500 mL No 500 mL, Memor ia 10-06 Rate: 250 l 08:30: ml/hr, Infuse over: 2 hr, Route: IV, Dosing Weight 88.636 kg, Total Volume: 500, Start date: 10/06/15 2:30:00, Duration: 1 doses or times, Stop date: 10/06/15 4:29:00 Amlodipine Yes 5 mg = 1 Mem oria 5 MG Oral - tab, PO, l Tablet 19:46: Daily, # [place] [Norvasc] 00 30 tab, 1 Refill(s) doxycycline Yes 100 mg = 1 Memoria monohydrate 9-23 tab, PO, l 100 mg oral 17:16: Q12H, X 7 H ermann tablet 00 day, # 14 tab, 0 Refill(s) doxycycline Yes 100 mg = 1 Memoria hyclate 100 9-23 tab, PO, l mg oral 16:31: Q12H, X 7 Luz Maria nn tablet 00 day, # 14 tab, 0 Refill(s) metoprolol No Notes: Memor ia extended 05-01 (Same as: l release 14:00: Toprol XL) Herm keerthi Do Not Crush Lipitor No Notes: Memoria 05-01 (Same As: l 02:00: Lipitor) [place] Crestor No 10 mg, Memoria 05-01 Route: PO, l 02:00: Drug form: [place] 00 TAB, Bedtime, Dosing Weight 94.091, kg, Start date: 04/30/15 21:00:00, Duration: 30 day, Stop date: 05/29/15 21:00:00 Dulera No Dulera Memoria 100mcg-5mcg 05-01 100mcg-5mc l /inh 01:00: g/inh [place] inhalation 00 inhalation aerosol aerosol, 2 puff, Drug form: MISC, Route: INHALATION , RBID, 04/30/15 20:00:00, Duration: 30 day, Stop date: 05/30/15 8:00:00 Metoprolol No Notes: Memor ia 04-30 (Same as: l 17:21: Lopressor) [place] Rocephin No Notes: Memoria 04-30 (Same As: l 16:00: Rocephin). [place] 00 Use with 100ml NS mini-bag PLUS and infuse over 30 min MEDICATION WASTE Product Size: 1000 mg Product Wasted: 0 mg 200 ACTUAT No 2 puff, Castillo deisi Ipratropium 04-30 Route: l [place] 14:00: INHALATION Herm keerthi 0.017 00 , Dosing MG/ACTUAT Weight Metered 94.091, Dose kg, QID, Inhaler Start [Atrovent] date: 04/30/15 9:00:00, Duration: 30 day, Stop date: 05/29/15 21:00:00 Uloric No Notes: Memoria 04-30 Same as: l 14:00: Uloric [place] Non-Formul beltran multivitami No 1 tab, Castillo deisi n 04-30 Route: PO, l 14:00: Drug Form: [place] 00 TAB, Dosing Weight 94.091, kg, Breakfast, Start date: 04/30/15 9:00:00, Stop date: 05/29/15 8:00:00 120 ACTUAT No 2 puff, Castillo deisi formoterol 04-30 Route: l fumarate 14:00: INHALER, Luz Maria nn 0.005 00 Drug Form: MG/ACTUAT / AERO, mometasone Dosing furoate 0.1 Weight MG/ACTUAT 94.091, Metered kg, BID, Dose Start Inhaler date: [Dulera 04/30/15 100/5] 9:00:00, Duration: 30 day, Stop date: 05/29/15 17:00:00 Thyroxine No Notes: Memori a - Take 1 l 11:30: hour before or 2 hours after meal; Enteral feeds may interefere with the absorption of this medication . (Same as: Levothroid ) Digoxin No Notes: Memoria 04-30 (Same as: l 10:08: Lanoxin) Zofran No Notes: Memoria 04-30 (Same as: l 09:53: Zofran) MEDICATION WASTE Product Size: 4 mg Product Wasted: __0_ mg metoprolol No Notes: Memor ia tartrate 04-30 (Same as: l 09:39: Lopressor) 200 ACTUAT No Notes: Memor ia Ipratropium 04-30 (ipratropi l [place] 08:00: um [place] 0.017 00 17microgra MG/ACTUAT m/inh 14gm Metered AER) (Same Dose as:Atroven Inhaler t) [Atrovent] Xarelto No Notes: Memoria 04-30 (Same as: l 05:56: Xarelto) Administer with food Amiodarone No Notes: Memor ia 04-30 (Same as: l 05:30: Cordarone) metoprolol No Notes: Memor ia tartrate 04-30 (Same as: l 05:00: Lopressor) Lorenzo 00 Sodium No 250 mL, Memoria Chloride 04-30 250 ml/hr, l 0.154 02:40: Infuse [place] MEQ/ML 00 Over: 1 Injectable hr, Route: Solution IV, 250, Drug form: INJ, ONCE, Priority: STAT, Dosing Weight 94.148 kg, Start date: 04/29/15 21:40:00, Duration: 1 doses or times, Stop date: 04/29/15 21:40:00 multivitami 2014- Yes 1 tab, PO, Memoria n 04-30 Daily, 0 l 02:09: Refill(s) metoprolol No Notes: [facility]or ia tartrate 04-30 (Same as: l 01:00: Lopressor) Labetalol No Notes: Memori a 04-29 (Same as: l 23:16: Normodyne, Lorenzo 00 Trandate) Push over 2 minutes Give bolus over 2-3 minutes. Metoprolol No 5 mg, Memori a 04-29 Route: l 22:47: IVP, Drug [place] 00 form: INJ, ONCE, Dosing Weight 94.148, kg, Priority: STAT, Start date: 04/29/15 17:47:00, Stop date: 04/29/15 17:47:00 Sodium No IV, 0 Memoria Chloride 9-21 ml/hr, l 0.9% IV 21:21: PRN, PRN Joe n 00 Line Flush, Start date: 04/29/15 16:21:00, Duration: 30, 25 ml BD Normal No Notes: Memori a Saline 04-29 (Same as: l Flush 21:21: BD [place] 00 Posiflush) Sodium No 500 mL, Memoria Chloride 04-29 1,000 l 0.154 21:06: ml/hr, Lorenzo MEQ/ML 00 Infuse Injectable Over: 1 Solution hr, Route: IV, ONCE, Priority: STAT, Dosing Weight 94.148 kg, Start date: 04/29/15 16:06:00, Duration: 1 doses or times, Stop date: 04/29/15 16:06:00 Lipitor No Notes: Memoria 8-21 (Same As: l 02:00: Lipitor) [place] 00 Crestor No 10 mg, Memoria 8-21 Route: PO, l 02:00: Drug form: [place] 00 TAB, Bedtime, Dosing Weight 90.909, kg, Start date: 03/28/15 21:00:00, Duration: 30 day, Stop date: 04/26/15 21:00:00 Xarelto No Notes: Memoria 8-20 (Same as: l 22:00: Xarelto) [place] Administer with food 24 HR No Notes: [facility]oria Metoprolol 8-20 (Same as: l Tartrate 25 14:00: Toprol XL) Lorenzo MG Extended 00 Do Not Release Crush Tablet [Toprol] 120 ACTUAT No 2 puff, Castillo deisi formoterol 820 Route: l fumarate 14:00: INHALER, Luz Maria nn 0.005 00 Drug Form: MG/ACTUAT / AERO, mometasone Dosing furoate 0.1 Weight MG/ACTUAT 90.909, Metered kg, BID, Dose Start Inhaler date: [Dulera 03/28/15 100/5] 9:00:00, Duration: 30 day, Stop date: 04/26/15 17:00:00 Uloric No Notes: Memoria 8-20 Same as: l 14:00: Uloric Non-Formul beltran Clonidine No Notes: Memori a Hydrochlori 8-20 (Same As: l de 0.2 MG 14:00: Catapres) Her gutierrez Oral Tablet Amiodarone No Notes: Memor ia 8-20 (Same as: l 14:00: Cordarone) Lorenzo Saline No Notes: [facility] Flush 0.9% 8-20 (Same as: l 14:00: BD [place] Posiflush) Aspirin 325 No Notes: Castillo deisi MG Oral 8-20 Take with l Tablet 14:00: food. [place] 00 Thyroxine No Notes: Memori a 8-20 Take 1 l 11:30: hour [place] 00 before or 2 hours after meal; Enteral feeds may interefere with the absorption of this medication . (Same as: Levothroid ) Isosorbide No Notes: Memor ia 8-20 (Same l 11:30: as:Imdur) [place] 00 "Do Not Crush" Take on empty stomach/ full glass of water. Do not crush Albuterol No Notes: SEE Me moria 0.83 MG/ML 8-20 RT l Inhalant 08:41: DOCUMENTAT Her gutierrez Solution 00 ION (Same as: Proventil) Albuterol Yes 2.49 mg = Mem oria 0.83 MG/ML 8-20 3 mL, NEB, l Inhalant 08:38: Q6H, PRN Luz Maria nn Solution 00 as needed for shortness of breath, # 120 ea, 3 Refill(s) 120 ACTUAT Yes 2 puff, Castillo deisi formoterol 8-20 INHALER, l fumarate 08:38: BID, # 1 Luz Maria nn 0.005 00 ea, 3 MG/ACTUAT / Refill(s) mometasone furoate 0.1 MG/ACTUAT Metered Dose Inhaler [Dulera 100/5] spironolact Yes 25 mg = 1 M emoria one 25 mg 8-20 tab, PO, l oral tablet 08:38: Daily, # Hardik agrawal 00 30 tab, 3 Refill(s) metoprolol Yes 25 mg = 1 Me moria 25 mg oral 8-20 tab, PO, l tablet, 08:38: Daily, # Joe n extended 00 30 tab, 0 release Refill(s) losartan Yes 100 mg = 1 Mem oria 100 mg oral 8-20 tab, PO, l tablet 08:38: Daily, # [place] 00 30 tab, 0 Refill(s) AMIODarone Yes 200 mg = 1 M emoria 200 mg oral 8-20 tab, PO, l tablet 08:38: Daily, # Lorenzo 00 180 tab, 0 Refill(s) rivaroxaban Yes 15 mg = 1 M emoria 15 MG Oral 8-20 tab, PO, l Tablet 08:38: Daily, # [place] [Xarelto] 00 90 tab, 3 Refill(s) Rosuvastati Yes 10 mg = 1 M emoria n calcium 8-20 tab, PO, l 10 MG Oral 08:38: Bedtime, # H ermann Tablet 00 30 tab, 0 [Crestor] Refill(s) Furosemide Yes 40 mg = 1 Me moria 40 MG Oral 8-20 tab, PO, l Tablet 08:38: Daily, # [place] 00 30 tab, 0 Refill(s) Clonidine Yes 0.2 mg = 1 Me moria Hydrochlori 8-20 tab, PO, l de 0.2 MG 08:38: BID, # 60 Her gutierrez Oral Tablet 00 tab, 0 Refill(s) febuxostat Yes 40 mg = 1 Me moria 40 MG Oral 8-20 tab, PO, l Tablet 08:38: Daily, # Lorenzo [Uloric] 00 30 tab, 0 Refill(s) isosorbide Yes 30 mg = 1 Me moria mononitrate 8-20 tab, PO, l 30 mg oral 08:38: QAM, # 30 He rmann tablet, 00 tab, 0 extended Refill(s) release levothyroxi Yes 150 Memori a ne 150 mcg 8-20 microgram l (0.15 mg) 08:38: = 1 tab, Herm keerthi oral tablet 00 PO, Daily, # 30 tab, 0 Refill(s) NS 1,000 mL No 1,000 mL, M emoria 03-28 Rate: 40 l 07:58: ml/hr, Infuse over: 25 hr, Route: IV, Dosing Weight 90.909 kg, Total Volume: 1,000, Start date: 03/28/15 2:58:00, Duration: 30 day, Stop date: 04/27/15 2:57:00 Saline No Notes: Memoria Flush 0.9% 03-28 (Same as: l 07:58: BD Posiflush) Nitroglycer No Notes: Castillo deisi in 03-28 (Same l 07:58: as:Nitroqu ick, Nitrostat) "Do Not Crush" Sublingual tablet Diphenhydra No 25 mg, 1 Me moria mine 8-20 tab, l 07:58: Route: PO, [place] 00 Drug form: TAB, Bedtime, Dosing Weight 90.909, kg, PRN Insomnia, Start date: 03/28/15 2:58:00, Duration: 30 day, Stop date: 04/27/15 2:57:00 Acetaminoph No Notes: Do M emoria en 8-20 not exceed l 07:58: 4 gm/day. [place] 00 (Same as: Tylenol) Zofran No Notes: Memoria 8-20 (Same as: l 07:58: Zofran) MEDICATION WASTE Product Size: 4 mg Product Wasted: _0__ mg Sodium No IV, 0 Memoria Chloride 8-20 ml/hr, l 0.9% IV 06:10: PRN, PRN Joe n 00 Line Flush, Start date: 03/28/15 1:10:00, Duration: 30, 25 ml Saline No Notes: Memoria Flush 0.9% 8-20 (Same as: l 06:06: BD Posiflush) Amitiza 24 Amitiza 24 No Amitiza 24 [...] tablet tablet tablet Medical Group Immunizations Ordered Filled Immunization Date Status Comments [facility] e Immunization Name Name influenza, high influenza, high 2012-05-09 Completed [facility] dose seasonal dose seasonal 00:00:00 Medical Group FLUCELVAX Unknown Completed [facility] diphtheria/pertussi Unknown Completed [facility] ial s, acel/tetanus [place] adult Vital Signs Vital Name Observation Time Observation Value Comments Source WEIGHT 2020-03-15 13:27:00 83.4 kg BP Diastolic 2018-09-27 00:00:00 72 mm[Hg] [facility] Height 2018-09-27 00:00:00 70 [in_i] [facility] BMI (Body Mass 2018-09-27 00:00:00 28.3 kg/m2 [facility] home [facility] Index) Group BP Systolic 2018-09-27 00:00:00 162 mm[Hg] [facility] Body Weight 2018-09-27 00:00:00 197.4 [lb_av] [facility] Weight 2020-07-31 20:30:00 [facility] [place] Height 2020-07-31 20:30:00 [facility] [place] Heart Rate 2020-07-31 20:30:00 [facility] [place] Diastolic (mm Hg) 2020-07-31 20:30:00 [facility] [place] Systolic (mm Hg) 2020-07-31 20:30:00 Castillo rial [place] Weight 2019-12-19 21:45:00 [facility] [place] Height 2019-12-19 21:45:00 [facility] [place] Temperature Oral (F) 2019-12-19 21:45:00 98 F [facility] [place] Heart Rate 2019-12-19 21:45:00 [facility] [place] Diastolic (mm Hg) 2019-12-19 21:45:00 Mem orial [place] Systolic (mm Hg) 2019-12-19 21:45:00 Castillo rial [place] Weight 2019-12-04 20:30:00 [facility] [place] Height 2019-12-04 20:30:00 [facility] [place] Heart Rate 2019-12-04 20:30:00 [facility] [place] Diastolic (mm Hg) 2019-12-04 20:30:00 Mem [facility] [place] Systolic (mm Hg) 2019-12-04 20:30:00 Castillo rial [place] Weight 2019-07-19 17:30:00 [facility] [place] Height 2019-07-19 17:30:00 [facility] [place] Heart Rate 2019-07-19 17:30:00 [facility] [place] Diastolic (mm Hg) 2019-07-19 17:30:00 Mem orial [place] Systolic (mm Hg) 2019-07-19 17:30:00 Castillo rial [place] Weight 2019-06-23 16:00:00 [facility] [place] Height 2019-06-23 16:00:00 [facility] [place] Heart Rate 2019-06-23 16:00:00 [facility] [place] Diastolic (mm Hg) 2019-06-23 16:00:00 Mem o[facility] [place] Systolic (mm Hg) 2019-06-23 16:00:00 Castillo rial [place] Weight 2019-05-23 18:00:00 [facility] [place] Height 2019-05-23 18:00:00 [facility] [place] Temperature Oral (F) 2019-05-23 18:00:00 98.4 F [facility] [place] Heart Rate 2019-05-23 18:00:00 [facility] [place] Diastolic (mm Hg) 2019-05-23 18:00:00 [facility] o[facility] [place] Systolic (mm Hg) 2019-05-23 18:00:00 Castillo rial [place] Weight 2019-03-24 17:00:00 [facility] [place] Height 2019-03-24 17:00:00 [facility] [place] Heart Rate 2019-03-24 17:00:00 [facility] [place] Diastolic (mm Hg) 2019-03-24 17:00:00 [facility] [place] Systolic (mm Hg) 2019-03-24 17:00:00 Castillo rial [place] Weight 2019-01-24 15:30:00 [facility] [place] Height 2019-01-24 15:30:00 [facility] [place] Heart Rate 2019-01-24 15:30:00 [facility] [place] Diastolic (mm Hg) 2019-01-24 15:30:00 Mem orial [place] Systolic (mm Hg) 2019-01-24 15:30:00 Castillo rial [place] Weight 2018-10-17 19:30:00 [facility] [place] Height 2018-10-17 19:30:00 [facility] [place] Temperature Oral (F) 2018-10-17 19:30:00 98.5 F [facility] [place] Heart Rate 2018-10-17 19:30:00 [facility] [place] Diastolic (mm Hg) 2018-10-17 19:30:00 Mem orial [place] Systolic (mm Hg) 2018-10-17 19:30:00 Castillo rial [place] Systolic (mm Hg) 2018-08-23 14:13:00 Castillo rial [place] Diastolic (mm Hg) 2018-08-23 14:13:00 Mem o[facility] [place] Respitory Rate 2018-08-23 14:13:00 Memori al [place] Heart Rate 2018-08-23 14:13:00 [facility] [place] Temperature Oral (F) 2018-08-23 14:13:00 98.4 F [facility] [place] Respitory Rate 2018-08-23 11:31:00 Memori al [place] Heart Rate 2018-08-23 11:31:00 [facility] [place] Temperature Oral (F) 2018-08-23 11:31:00 98.1 F [facility] [place] Systolic (mm Hg) 2018-08-23 11:31:00 Castillo rial [place] Diastolic (mm Hg) 2018-08-23 11:31:00 Mem o[facility] [place] Temperature Oral (F) 2018-08-23 05:42:00 97.8 F [facility] [place] Heart Rate 2018-08-23 05:42:00 [facility] [place] Respitory Rate 2018-08-23 05:42:00 Memori al [place] Systolic (mm Hg) 2018-08-23 05:42:00 Castillo rial [place] Diastolic (mm Hg) 2018-08-23 05:42:00 Mem o[facility] [place] Height 2018-08-22 02:18:00 182.88 cm [facility] [place] Weight 2018-08-22 02:18:00 [facility] [place] BMI Calculated 2018-08-22 02:18:00 [facility] al [place] Weight 2018-08-21 21:45:00 [facility] [place] BMI Calculated 2018-08-21 21:45:00 Memori al [place] Height 2018-08-21 21:45:00 182.88 cm [facility] [place] Respitory Rate 2018-08-19 21:21:00 [facility] al [place] Heart Rate 2018-08-19 21:21:00 [facility] [place] Systolic (mm Hg) 2018-08-19 21:21:00 Castillo rial [place] Diastolic (mm Hg) 2018-08-19 21:21:00 Mem orial [place] Weight 2018-08-19 19:28:00 [facility] [place] Height 2018-08-19 19:28:00 182.88 cm [facility] [place] BMI Calculated 2018-08-19 19:28:00 Memori al [place] Temperature Oral (F) 2018-08-19 19:28:00 98.4 F [facility] [place] Systolic (mm Hg) 2018-08-19 19:28:00 Castillo rial [place] Diastolic (mm Hg) 2018-08-19 19:28:00 Mem orial [place] Heart Rate 2018-08-19 19:28:00 [facility] [place] Respitory Rate 2018-08-19 19:28:00 Memori al [place] Systolic (mm Hg) 2018-08-16 17:56:00 Castillo rial [place] Diastolic (mm Hg) 2018-08-16 17:56:00 Mem o[facility] [place] Temperature Oral (F) 2018-08-16 17:56:00 97.4 F [facility] [place] Heart Rate 2018-08-16 17:56:00 [facility] [place] Temperature Oral (F) 2018-08-16 13:40:00 97.9 F [facility] [place] Heart Rate 2018-08-16 13:40:00 [facility] [place] Systolic (mm Hg) 2018-08-16 13:40:00 Castillo rial [place] Diastolic (mm Hg) 2018-08-16 13:40:00 Mem orial [place] Systolic (mm Hg) 2018-08-16 12:17:00 Castillo rial [place] Diastolic (mm Hg) 2018-08-16 12:17:00 Mem o[facility] [place] Heart Rate 2018-08-16 12:17:00 [facility] [place] Respitory Rate 2018-08-16 12:17:00 Memori al [place] Temperature Oral (F) 2018-08-16 12:17:00 98.3 F [facility] [place] Respitory Rate 2018-08-16 05:56:00 Memori al [place] Respitory Rate 2018-08-16 02:18:00 [facility] al [place] BMI Calculated 2018-08-14 15:55:00 Mem[facility] al [place] Weight 2018-08-14 15:55:00 [facility] [place] Height 2018-08-14 15:55:00 182.88 cm [facility] [place] BMI Calculated 2018-08-14 10:32:00 Memori al L[place]en[place] Height 2018-08-14 10:32:00 182.88 cm [facility] [place] Weight 2018-08-14 10:32:00 [facility] [place] Weight 2018-08-10 20:00:00 [facility] [place] Diastolic (mm Hg) 2018-08-10 20:00:00 Mem o[facility] [place] Systolic (mm Hg) 2018-08-10 20:00:00 Castillo rial [place] Heart Rate 2018-08-10 20:00:00 [facility] [place] Weight 2018-07-18 17:00:00 [facility] [place] Height 2018-07-18 17:00:00 [facility] [place] Heart Rate 2018-07-18 17:00:00 [facility] [place] Diastolic (mm Hg) 2018-07-18 17:00:00 Mem orial [place] Systolic (mm Hg) 2018-07-18 17:00:00 Castillo rial [place] Weight 2018-07-13 17:45:00 [facility] [place] Height 2018-07-13 17:45:00 [facility] [place] Temperature Oral (F) 2018-07-13 17:45:00 98.5 F [facility] [place] Heart Rate 2018-07-13 17:45:00 [facility] [place] Diastolic (mm Hg) 2018-07-13 17:45:00 Mem orial [place] Systolic (mm Hg) 2018-07-13 17:45:00 Castillo rial [place] Systolic (mm Hg) 2018-06-05 04:39:00 Castillo rial [place] Diastolic (mm Hg) 2018-06-05 04:39:00 Mem o[facility] [place] Temperature Oral (F) 2018-06-05 04:39:00 97.9 F [facility] [place] Respitory Rate 2018-06-05 04:39:00 Memori al [place] Respitory Rate 2018-06-05 03:39:00 Memori al [place] Systolic (mm Hg) 2018-06-05 03:39:00 Castillo rial [place] Diastolic (mm Hg) 2018-06-05 03:39:00 Mem orial [place] Systolic (mm Hg) 2018-06-05 02:39:00 Castillo rial [place] Diastolic (mm Hg) 2018-06-05 02:39:00 Mem orial [place] Respitory Rate 2018-06-05 02:39:00 Memori al [place] BMI Calculated 2018-06-05 00:39:00 [facility] al [place] Height 2018-06-05 00:39:00 182.88 cm [facility] [place] Weight 2018-06-05 00:39:00 [facility] [place] Heart Rate 2018-06-05 00:39:00 [facility] [place] Temperature Oral (F) 2018-06-05 00:39:00 99.1 F [facility] [place] Respitory Rate 2018-02-05 00:09:00 Memori al [place] Heart Rate 2018-02-05 00:09:00 [facility] [place] Temperature Oral (F) 2018-02-05 00:09:00 97.7 F [facility] [place] Systolic (mm Hg) 2018-02-05 00:09:00 Castillo rial [place] Diastolic (mm Hg) 2018-02-05 00:09:00 Mem o[facility] [place] Weight 2017-11-03 17:30:00 [facility] [place] Height 2017-11-03 17:30:00 [facility] [place] Heart Rate 2017-11-03 17:30:00 [facility] [place] Diastolic (mm Hg) 2017-11-03 17:30:00 Mem o[facility] [place] Systolic (mm Hg) 2017-11-03 17:30:00 Castillo rial [place] Weight 2017-08-16 14:30:00 [facility] [place] Height 2017-08-16 14:30:00 [facility] [place] Temperature Oral (F) 2017-08-16 14:30:00 98.7 F [facility] [place] Heart Rate 2017-08-16 14:30:00 [facility] [place] Diastolic (mm Hg) 2017-08-16 14:30:00 Mem orial [place] Systolic (mm Hg) 2017-08-16 14:30:00 Castillo rial [place] Temperature Oral (F) 2017-04-12 16:12:00 98.6 F [facility] [place] Systolic (mm Hg) 2017-04-12 16:12:00 Castillo rial [place] Diastolic (mm Hg) 2017-04-12 16:12:00 Mem orial [place] Respitory Rate 2017-04-12 16:12:00 Memori al [place] Heart Rate 2017-04-12 16:12:00 [facility] [place] Weight 2017-04-12 14:27:00 [facility] [place] Temperature Oral (F) 2017-04-12 14:27:00 97.8 F [facility] [place] Respitory Rate 2017-04-12 14:27:00 Memori al [place] Heart Rate 2017-04-12 14:27:00 [facility] [place] Systolic (mm Hg) 2017-04-12 14:27:00 Castillo rial [place] Diastolic (mm Hg) 2017-04-12 14:27:00 Mem orial [place] BMI Calculated 2017-04-12 14:27:00 [facility] [place] Height 2017-04-12 14:27:00 182.88 cm [facility] [place] Respitory Rate 2016-12-05 06:00:00 [facility] [place] Systolic (mm Hg) 2016-12-05 06:00:00 Castillo rial [place] Diastolic (mm Hg) 2016-12-05 06:00:00 Mem orial [place] Respitory Rate 2016-12-05 05:00:00 [facility] [place] Systolic (mm Hg) 2016-12-05 05:00:00 Castillo rial [place] Diastolic (mm Hg) 2016-12-05 05:00:00 Mem orial [place] Systolic (mm Hg) 2016-12-05 03:38:00 Castillo rial [place] Diastolic (mm Hg) 2016-12-05 03:38:00 Mem o[facility] [place] Respitory Rate 2016-12-05 03:38:00 [facility] [place] Heart Rate 2016-12-05 03:37:00 [facility] [place] Weight 2016-12-05 03:00:00 [facility] [place] Heart Rate 2016-12-05 03:00:00 [facility] [place] Temperature Oral (F) 2016-12-05 03:00:00 98.4 F [facility] [place] Height 2016-12-05 03:00:00 182.88 cm [facility] [place] BMI Calculated 2016-12-05 03:00:00 [facility] al [place] Weight 2016-11-30 15:15:00 [facility] [place] Height 2016-11-30 15:15:00 [facility] [place] Temperature Oral (F) 2016-11-30 15:15:00 98.5 F [facility] [place] Heart Rate 2016-11-30 15:15:00 [facility] [place] Diastolic (mm Hg) 2016-11-30 15:15:00 Mem o[facility] [place] Systolic (mm Hg) 2016-11-30 15:15:00 Castillo rial [place] Weight 2016-07-06 15:30:00 [facility] [place] Height 2016-07-06 15:30:00 [facility] [place] Temperature Oral (F) 2016-07-06 15:30:00 98.3 F [facility] [place] Heart Rate 2016-07-06 15:30:00 [facility] [place] Diastolic (mm Hg) 2016-07-06 15:30:00 Mem orial [place] Systolic (mm Hg) 2016-07-06 15:30:00 Castillo rial [place] Weight 2016-06-22 15:15:00 [facility] [place] Height 2016-06-22 15:15:00 [facility] [place] Heart Rate 2016-06-22 15:15:00 [facility] [place] Diastolic (mm Hg) 2016-06-22 15:15:00 Mem orial [place] Systolic (mm Hg) 2016-06-22 15:15:00 Castillo rial [place] Weight 2016-03-20 15:00:00 [facility] [place] Height 2016-03-20 15:00:00 [facility] [place] Heart Rate 2016-03-20 15:00:00 [facility] [place] Diastolic (mm Hg) 2016-03-20 15:00:00 Mem o[facility] [place] Systolic (mm Hg) 2016-03-20 15:00:00 Castillo rial [place] Weight 2016-01-07 16:00:00 [facility] [place] Height 2016-01-07 16:00:00 [facility] [place] Heart Rate 2016-01-07 16:00:00 [facility] [place] Diastolic (mm Hg) 2016-01-07 16:00:00 Mem o[facility] [place] Systolic (mm Hg) 2016-01-07 16:00:00 Castillo rial [place] Weight 2015-10-14 18:45:00 [facility] [place] Height 2015-10-14 18:45:00 [facility] [place] Heart Rate 2015-10-14 18:45:00 [facility] [place] Diastolic (mm Hg) 2015-10-14 18:45:00 Mem o[facility] [place] Systolic (mm Hg) 2015-10-14 18:45:00 Castillo rial [place] Heart Rate 2015-10-07 02:04:00 [facility] [place] Temperature Oral (F) 2015-10-07 02:04:00 98.4 F [facility] [place] Systolic (mm Hg) 2015-10-07 02:04:00 Castillo rial [place] Diastolic (mm Hg) 2015-10-07 02:04:00 Mem orial [place] Respitory Rate 2015-10-07 02:04:00 Memori al [place] Heart Rate 2015-10-06 22:51:00 [facility] [place] Respitory Rate 2015-10-06 22:51:00 Mem[facility] al [place] Systolic (mm Hg) 2015-10-06 22:51:00 Castillo rial [place] Diastolic (mm Hg) 2015-10-06 22:51:00 Mem orial [place] Respitory Rate 2015-10-06 18:09:00 [facility] al [place] Systolic (mm Hg) 2015-10-06 18:09:00 Castillo rial [place] Diastolic (mm Hg) 2015-10-06 18:09:00 [facility] o[facility] [place] Heart Rate 2015-10-06 18:09:00 [facility] [place] Temperature Oral (F) 2015-10-06 18:09:00 98.7 F [facility] [place] Temperature Oral (F) 2015-10-06 14:05:00 98.2 F [facility] [place] Height 2015-10-06 10:01:00 182.88 cm [facility] [place] BMI Calculated 2015-10-06 10:01:00 [facility] [place] Weight 2015-10-06 10:01:00 [facility] [place] Weight 2015-10-06 06:53:00 [facility] [place] BMI Calculated 2015-10-06 06:53:00 [facility] [place] Height 2015-10-06 06:53:00 180.34 cm [facility] [place] Temperature Oral (F) 2015-05-01 16:19:00 98.1 F [facility] [place] Systolic (mm Hg) 2015-05-01 16:19:00 Castillo rial [place] Diastolic (mm Hg) 2015-05-01 16:19:00 Mem o[facility] [place] Respitory Rate 2015-05-01 16:19:00 [facility] [place] Heart Rate 2015-05-01 16:19:00 [facility] [place] Temperature Oral (F) 2015-05-01 12:41:00 97.7 F [facility] [place] Heart Rate 2015-05-01 12:41:00 [facility] [place] Respitory Rate 2015-05-01 12:41:00 [facility] [place] Systolic (mm Hg) 2015-05-01 12:41:00 Castillo rial [place] Diastolic (mm Hg) 2015-05-01 12:41:00 [facility] o[facility] [place] Respitory Rate 2015-05-01 10:33:00 [facility] [place] Temperature Oral (F) 2015-05-01 10:33:00 97.6 F [facility] [place] Heart Rate 2015-05-01 10:33:00 [facility] [place] Systolic (mm Hg) 2015-05-01 10:33:00 Castillo rial [place] Diastolic (mm Hg) 2015-05-01 10:33:00 [facility] [place] Height 2015-04-30 03:00:00 182.88 cm [facility] [place] Weight 2015-04-30 03:00:00 [facility] [place] BMI Calculated 2015-04-30 03:00:00 [facility] [place] Weight 2015-04-29 20:02:00 [facility] [place] BMI Calculated 2015-04-29 20:02:00 [facility] [place] Height 2015-04-29 20:02:00 182.88 cm [facility] [place] Systolic (mm Hg) 2015-03-28 20:38:00 Castillo rial [place] Diastolic (mm Hg) 2015-03-28 20:38:00 [facility] [place] Respitory Rate 2015-03-28 20:38:00 [facility] al [place] Heart Rate 2015-03-28 20:38:00 [facility] [place] Temperature Oral (F) 2015-03-28 20:38:00 97.7 F [facility] [place] Heart Rate 2015-03-28 16:10:00 [facility] [place] Respitory Rate 2015-03-28 16:10:00 [facility] [place] Systolic (mm Hg) 2015-03-28 16:10:00 Castillo rial [place] Diastolic (mm Hg) 2015-03-28 16:10:00 [facility] [place] Temperature Oral (F) 2015-03-28 16:10:00 97.7 F [facility] [place] Temperature Oral (F) 2015-03-28 12:39:00 97.6 F [facility] [place] Heart Rate 2015-03-28 12:39:00 [facility] [place] Respitory Rate 2015-03-28 12:39:00 [facility] [place] Systolic (mm Hg) 2015-03-28 12:39:00 Castillo rial [place] Diastolic (mm Hg) 2015-03-28 12:39:00 [facility] o[facility] [place] Height 2015-03-28 08:49:00 180.34 cm [facility] [place] Weight 2015-03-28 08:49:00 [facility] [place] BMI Calculated 2015-03-28 08:49:00 [facility] [place] Weight 2015-03-28 05:52:00 [facility] [place] BMI Calculated 2015-03-28 05:52:00 [facility] [place] Height 2015-03-28 05:52:00 180.34 cm [facility] [place] Procedures Procedure Date / Time Performed Performing Clinician Kayden paulette [facility] insertion of intraocular lens<sup>1</sup> Lobectomy of lung [facility] Luz Maria nn Nose reconstruction [facility] Operation<sup>2</sup> [facility] Stent [facility] Plan of Care Planned Activity Planned Date Details Comments Source Future Scheduled 2023-06-03 COVID-19 [facility]ACCINE (#1[facility] 10:54:29 [code = COVID-19 VACCINE (#1)] Future Scheduled 2023-06-03 65+ [facility]CCAL [facility] 10:54:29 VACCINE (1 - PCV) [code = 65+ PNEUMOCOCCAL VACCINE (1 - PCV)] Future Scheduled 2023-06-03 SHINGLES VACCINES ([address] [facility] Test 10:54:29 of 2) [code = SHINGLES VACCINES (1 of 2)] Future Scheduled 2023-06-03 INFLUENZA VACCINE (#1) [facility] Hospital Test 10:54:29 [code = INFLUENZA VACCINE (#1)] Encounters Start End Encounter Admission Attending Care Care Encounter Source Date/Time Date/Time Type Type Clinicians Facility Department ID 2021-06-[address] [facility] [id number] [facility] 07:30:00 [place] 35 2022-05-27 2022-05-27 Outpatient FELICITA GENAO [facility] [id number] 12:07:00 12:07:00 [id number] Count includes the [facility] 2021-07-21 2021-07-21 Outpatient [facility] [id number] [place] 00:00:00 00:00:[id number] 2021-07-21 2021-07-21 Outpatient [facility] [id number] [place] 00:00:00 00:00:[address] 2021-06-27 2021-06-[address] [facility] [id number] [facility] 06:18:00 06:18:00 35 2021-06-13 2021-06-13 Outpatient EL CHIRINOS, [facility] MDA [id number] 08:02:12 08:12:54 VITALIY cadet 2020-08-19 2020-08-19 Outpatient EL CHIRINOS, [facility] LUIS FELIPE [id number] 12:00:24 15:34:11 VITALIY cadet 2020-08-16 2020-08-16 Outpatient EL CHIRINOS, [facility] LUIS FELIPE [id number] 08:39:13 08:45:27 VITALIY cadet 2020-08-16 2020-08-16 Outpatient EL CHIRINOS, [facility] LUIS FELIPE [id number] 00:00:00 00:00:00 VITALIY cadet 2020-07-31 2020-07-31 Outpatient [facility] [id number] [facility] 14:30:00 14:30:00 [facility] 2020-07-19 2020-07-19 Outpatient [facility] [id number] [facility] 10:25:00 10:25:00 e Medical [facility] 2020-06-26 2020-06-26 Outpatient Maluf_C [facility] [id number] [place] 02:40:00 02:40:00 118 [facility] 2020-06-14 2020-06-14 Outpatient EL CHIRINOS, MDA MDA [id number] 07:39:37 07:44:52 VITALIY cadet 2020-05-07 2020-05-07 Outpatient [facility] [id number] [facility] 19:29:00 19:29:00 e [facility] 2020-04-03 2020-04-03 Outpatient EL CHIRINOS, MDA MDA [id number] 00:00:00 00:00:00 VITALIY cadet 2020-03-15 2020-03-15 Outpatient EL SKBRANDON, MDA MDA [id number] 13:25:00 14:50:57 NETTE cadet 2020-03-14 2020-03-14 Outpatient EL CHIRINOS, MDA MDA [id number] 09:22:39 09:22:39 VITALIY cadet 2020-03-14 2020-03-14 Outpatient EL DIOGENES KERN MDA MDA [id number] 08:59:28 09:14:38 Jomar cadet 2020-03-14 2020-03-14 Outpatient EL JIA ARAGON MDA MDA [id number] 00:00:00 00:00:00 Jomar cadet 2020-02-01 2020-02-01 Outpatient EL CHIRINOS, MDA MDA [id number] 08:33:58 08:43:57 VITALIY cadet 2020-01-18 2020-01-18 Outpatient EL ONEYDA, MDA MDA [id number] 13:50:34 14:08:00 JOELLE cadet 2020-01-12 2020-01-12 Outpatient EL CHIRINOS, MDA MDA [id number] 12:03:01 12:03:01 VITALIY cadet 2019-12-19 2019-12-19 Outpatient [facility] [id number] [facility] 15:45:00 15:45:00 [facility] 2019-12-05 2019-12-05 Outpatient [facility] [id number] [facility] 10:41:00 10:41:00 [facility] 2019-12-05 2019-12-05 Outpatient [facility] [id number] [facility] 10:39:00 10:39:00 [facility] 2019-12-04 2019-12-04 Outpatient [facility] [id number] [facility] 14:30:00 14:30:00 [facility] 2019-11-17 2019-11-17 Outpatient [facility] [id number] [facility] 11:57:00 11:57:00 [facility] 2019-08-18 2019-08-18 Outpatient Maluf_C MMG MMG [id number] [place] 05:02:00 05:02:00 110 [facility] 2019-07-19 2019-07-19 Outpatient [facility] [id number] [facility] 11:30:00 11:30:00 [facility] 2019-07-18 2019-07-18 Outpatient [facility] [id number] [facility] 09:24:00 09:24:00 [facility] 2019-06-23 2019-06-23 Outpatient [facility] [id number] [facility]inic 10:00:00 10:00:00 [facility] 2019-05-23 2019-05-23 Outpatient [facility] [id number] [facility]inic 12:00:00 12:00:00 [facility] 2019-05-10 2019-05-10 Outpatient [facility] 71 [id number] eClinic 14:48:00 14:48:00 [facility] 2019-03-24 2019-03-24 Outpatient [facility] 70 [id number] eClinic 14:29:00 14:29:00 [facility] 2019-03-24 2019-03-24 [facility] 70 [id number] eClinic 12:00:00 12:00:00 [facility] 2019-02-13 2019-02-13 Outpatient [facility] [id number] eClinic 12:55:00 12:55:00 [facility] 2019-01-24 2019-01-24 Outpatient [facility] 67 [id number] eClinic 10:30:00 10:30:00 [facility] 2018-10-17 2018-10-17 Outpatient [facility] [id number] eClinic 14:30:00 14:30:00 [facility] 2018-09-27 2018-09-27 Roel [facility] [place] - [id number] [facility] 00:00:00 00:00:00 Stepan Franklin MD: [facility] [address], General [address], [place] [address] , Ph. [phone] 2018-08-26 2018-08-26 [facility] [id number] Memoria 14:15:00 14:15:00 Pre-Reg r Urology 00 [facility] 2018-08-26 2018-08-26 Outpatient WILDER DHALIWALIE [id number] Memoria 08:15:00 08:15:00 00 willis Ventura 2018-08-26 2018-08-26 Outpatient Abhinav Lopez [facility] [id number] 08:15:00 08:15:00 Pawel 00 2018-08-25 2018-08-25 Outpatient [facility] 3 [id number] eClinic 15:49:00 15:49:00 erology nissa Reid [facility] 2018-08-21 2018-08-23 Inpatient nullFlavo [facility] [id number] Memoria 21:42:00 19:27:00 r Lorenzo 10 [facility] 2018-08-21 2018-08-23 Outpatient DAYANNA Pardo [facility] [id number] 15:42:00 13:27:00 Whitney Akhtar 10 2018-08-19 2018-08-19 Emergency nullFlavo [facility] [id number] Memoria 19:11:00 21:25:[address] 2018-08-19 2018-08-19 Outpatient Ricky, 9 MH9 [id number] 13:11:00 15:25:00 Morakinyo 09 2018-08-19 2018-08-19 Outpatient [facility] [id number] eClinic 08:29:00 08:29:00 erology ology alWork s [facility] 2018-08-14 2018-08-16 Inpatient [facility] [id number] Memoria 10:26:00 20:09:[address] 2018-08-16 2018-08-16 Outpatient [facility] [id number] eClinic 16:50:00 16:50:00 [facility] 2018-08-14 2018-08-16 Outpatient Katy Hoover 9 MH9 [id number] 04:26:00 14:09:00 Peg 08 2018-08-10 2018-08-10 Outpatient [facility] 3 [id number] eClinic 14:00:00 14:00:00 erology ology alWork s [facility] 2018-08-08 2018-08-08 Outpatient [facility] [id number] eClinic 09:37:00 09:37:00 [facility] 2018-07-18 2018-07-18 Outpatient [facility] 61 [id number] eClinic 11:00:00 11:00:00 [facility] 2018-07-13 2018-07-13 Outpatient [facility] [id number] eClinic 11:45:00 11:45:00 [facility] 2018-07-11 2018-07-11 Outpatient [facility] 61 [id number] eClinic 12:33:00 12:33:00 [facility] 2018-07-07 2018-07-07 Outpatient [facility] 61 [id number] eClinic 09:15:00 09:15:00 [facility] 2018-06-05 2018-06-05 Emergency nullFlavo [facility] [id number] Memoria 00:24:00 05:06:00 r Lorenzo 07 [facility] 2018-06-04 2018-06-05 Outpatient Wayne, MH9 MH9 [id number] 19:24:00 00:06:00 Yunier Nilson 2018-02-05 2018-02-05 Emergency [facility] [id number] Memoria 00:07:00 03:05:00 r Lorenzo 06 [facility] 2018-02-04 2018-02-04 Outpatient Wayne, MH9 [id number] 19:07:00 22:05:00 Yunier Nilson 2017-11-03 2017-11-03 Outpatient [facility] [id number] eClinic 11:30:00 11:30:00 [facility] 2017-10-04 2017-10-04 [id number] 19:59:00 19:59:00 [facility] 2017-09-22 2017-09-22 Outpatient [facility] 53 [id number] eClinic 14:37:00 14:37:00 [facility] 2017-08-16 2017-08-16 Outpatient [facility] [id number] eClinic 09:30:00 09:30:00 [facility] 2017-04-12 2017-04-12 [facility] [id number] Memoria 14:25:00 16:14:00 william Ventura 05 [facility] 2017-04-12 2017-04-12 Outpatient Nova, MH9 [id number] 09:25:00 11:14:00 Yovany Martin 05 2017-04-09 2017-04-09 Outpatient [facility] [id number] eClinic 10:45:00 10:45:00 [facility] 2017-01-28 2017-01-28 Outpatient [facility] [id number] eClinic 11:49:00 11:49:00 [facility] 2017-01-21 2017-01-21 Outpatient [facility] [id number] eClinic 15:55:00 15:55:00 [facility] 2017-01-18 2017-01-18 Outpatient [facility] [id number] eClinic 12:41:00 12:41:00 [facility] 2016-12-05 2016-12-05 Emergency [facility] [id number] Memoria 02:57:00 06:48:00 [place] [id number] l [facility] 2016-12-04 2016-12-05 Outpatient Tico, 9 [facility] [id number] 21:57:00 01:48:00 Dina [facility] 2016-11-30 2016-11-30 Outpatient [facility] [id number] eClinic 10:15:00 10:15:00 [facility] 2016-11-19 2016-11-19 Outpatient [facility] [id number] eClinic 10:21:00 10:21:00 [facility] 2016-11-09 2016-11-09 Outpatient [facility] 44 [id number] eClinic 10:11:00 10:11:00 [facility] 2016-08-25 2016-08-25 Refill [facility] [id number] b56-a Memoria 16:11:00 16:11:00 r PLLC dc9-47a3-a l 9af-640df0 Luz Maria nn a560d9 2016-08-25 2016-08-25 Outpatient [facility] [id number] eClinic 10:11:00 10:11:00 e PLLC PLLC alWork s 2016-07-16 2016-07-16 Refill [facility]Flavo [facility] 554db 51a-2 Memoria 19:57:00 19:57:00 r PLLC 054-494a-9 l 3m0-uq1063 Luz Maria nn e89e60 2016-07-16 2016-07-16 Refill [facility] 267ca 5db-f Memoria 19:57:00 19:57:00 r PLLC j4k-7s61-2 l fda-a71f63 Luz Maria arita fc76a0 2016-07-16 2016-07-16 Outpatient [facility] [id number] eClinic 13:57:00 13:57:00 e PLLC PLLC alWork s 2016-07-06 2016-07-06 Outpatient [facility] [id number] eClinic 10:30:00 10:30:00 e Medical Medical alo [facility] Clinic 2016-06-22 2016-06-22 Outpatient [facility] 40 [id number] eClinic 10:15:00 10:15:00 e Medical Medical alo [facility] Clinic 2016-06-12 2016-06-12 Unknown [facility] 4a57c 9f5-1 Memoria 23:06:00 23:06:00 r PLLC r76-23l0-5 l ac0-f21a69 [facility] nn e106b2 2016-06-12 2016-06-12 Unknown [facility] 3be1e a86-0 Memoria 23:06:00 23:06:00 r PLLC s84-2y63-6 l [id number] [facility] nn 8a5aa1 2016-06-12 2016-06-12 Unknown [facility] ddddb 056-e Memoria 22:06:00 22:06:00 r PLLC o6d-2b84-r l eb3-c84adc [facility] nn [id number] 4363-11-04 2016-06-12 Outpatient [facility] [id number] eClinic 17:06:00 17:06:00 e PLLC PLLC alWork s 2016-03-20 2016-03-20 Outpatient [facility] [id number] eClinic 10:00:00 10:00:00 e Medical Medical alo [facility] Clinic 2016-03-17 2016-03-17 Unknown [facility] 28de8 bb8-0 Memoria 17:11:00 17:11:00 r PLLC 63e-4120-9 l f5x-dz314w [facility] nn 46274s 2016-03-17 2016-03-17 Unknown [facility] 388a4 45d-b Memoria 17:11:00 17:11:00 r PLLC 371-4a1b-a l cc5-0374f3 Lu[place] nn 7610db 2016-03-17 2016-03-17 Unknown [facility] 63c73 cde-4 Memoria 16:11:00 16:11:00 r PLLC 73f-4f21-a l 2fb-2a5b60 Luz Maria nn 2f7f61 2016-03-17 2016-03-17 Unknown [facility] 3e14f 37c-d Memoria 16:11:00 16:11:00 r PLLC 49d-4a95-b l db5-x4038w Luz Maria nn 24bb4f 2016-03-17 2016-03-17 Unknown [facility] 928a7 947-a Memoria 16:11:00 16:11:00 r PLLC k01-499z-w l 94e-2e9a5c Luz Maria nn 970e4f 2016-03-17 2016-03-17 Outpatient [facility] [id number] eClinic 11:11:00 11:11:00 e PLLC PLLC alWork s 2016-01-07 2016-01-07 SICK VISIT [facility] 40 3u114h-e Memoria 17:00:00 17:00:00 r PLLC 0x0-5029-p l 63a-5w3393 Luz Maria nn 27b099 2016-01-07 2016-01-07 SICK VISIT [facility] d3 64tb9m-b Memoria 17:00:00 17:00:00 r PLLC 095-4660-b l 03a-33ec65 Luz Maria nn 9b7796 2016-01-07 2016-01-07 SICK VISIT [facility] 3c rrl37v-1 Memoria 16:00:00 16:00:00 r PLLC ef9-460f-b l 6m3-313od6 Luz Maria nn f3993u 2016-01-07 2016-01-07 SICK VISIT [facility] 6c 6nfc5d-q Memoria 16:00:00 16:00:00 r PLLC 3ff-4cf3-8 l 6b1-k6vu15 Luz Maria nn a4bde7 2016-01-07 2016-01-07 Outpatient [facility] [id number] eClinic 11:00:00 11:00:00 e PLLC PLLC alWork s 2015-12-30 2015-12-30 Unknown [facility]Fl[facility] 5748c 354-8 Memoria 21:34:00 21:34:00 r [facility] i71-0614-b l 11c-6d0c4b Luz Maria nn 4769a5 2015-12-30 2015-12-30 Unknown [facility] 6b728 df2-b Memoria 21:34:00 21:34:00 r [facility] eb3-476c-a l ami-20f15a Luz Maria nn e8aff2 2015-12-30 2015-12-30 Unknown [facility] b8149 816-8 Memoria 20:34:00 20:34:00 r [facility] 2c9-4msk-3 l 2cd-5bca34 Luz Maria nn a495ad 2015-12-30 2015-12-30 Unknown [facility] 2d16a dce-8 Memoria 20:34:00 20:34:00 r [facility] r72-82sx-6 l 922-148a38 Luz Maria nn 05681r 2015-12-30 2015-12-30 Unknown [facility] 61741 f5d-1 Memoria 20:34:00 20:34:00 r [facility] cc6-4e81-a l 21a-e62b02 Luz Maria nn g7209n 2015-12-30 2015-12-30 Unknown [facility] 5cb7e 66a-a Memoria 20:34:00 20:34:00 r [facility] 999-437d-a l 25b-793494 Luz Maria nn 6cdcab 2015-12-30 2015-12-30 Unknown [facility] 9e068 021-e Memoria 20:34:00 20:34:00 r [facility] 9y9-5r48-l l 46e-055730 Luz Maria nn d95e12 2015-12-30 2015-12-30 Outpatient [facility] [id number] eClinic 15:34:00 15:34:00 [facility] 2015-12-11 2015-12-11 Unknown [facility]Fl[facility] 34aad 9f5-8 Memoria 15:09:00 15:09:00 r PLL 74c-4eb0-b l w96-qc239p [facility] nn 003d59 2015-12-11 2015-12-11 Unknown [facility] aefb0 5a8-4 Memoria 15:09:00 15:09:00 r PLLC 414-486d-9 l 30b-515f0a Luz Maria nn 0001cb 2015-12-11 2015-12-11 Unknown [facility] 67619 44e-4 Memoria 14:09:00 14:09:00 r PLLC v87-2q9g-6 l 39c-b229aa Luz Maria nn ea38af 2015-12-11 2015-12-11 Unknown [facility] 9a112 89d-7 Memoria 14:09:00 14:09:00 r PLLC 8cf-4918-8 l 0m3-7x8071 [facility] nn 7c80a4 2015-12-11 2015-12-11 Unknown [facility] 421cc 89b-4 Memoria 14:09:00 14:09:00 r PLLC ceb-402e-8 l m61-7823w1 [facility] nn 912574 9567-05-04 2015-12-11 Unknown [facility] 104bf b60-6 Memoria 14:09:00 14:09:00 r PLLC 0m1-6122-1 l 491-ts883h [facility] nn 9712c9 2015-12-11 2015-12-11 Unknown [facility] b47bf 2cc-2 Memoria 14:09:00 14:09:00 r PLLC ee0-40df-a l 7fe-p54040 [facility] nn 63bd0b 2015-12-11 2015-12-11 Unknown [facility] a1a46 5e0-3 Memoria 14:09:00 14:09:00 r PLLC 305-4bd2-9 l f46-8x1041 [facility] nn 06a2da 2015-12-11 2015-12-11 Outpatient [facility] 35 [id number] eClinic 09:09:00 09:09:00 e PLLC PLLC alWork s 2015-11-26 2015-11-26 REFILL REQ [facility] b4 1b1995-2 Memoria 23:26:00 23:26:00 r PLLC cac-44e6-9 l 8n5-1569o3 Luz [place] nn 43cff4 2015-11-26 2015-11-26 REFILL REQ [facility] f5 34v304-g Memoria 23:26:00 23:26:00 r PLLC 6o2-9og1-1 l bc6-292e24 Luz Maria nn cu0528 2015-11-26 2015-11-26 REFILL REQ [facility] ed 11mto1-3 Memoria 22:26:00 22:26:00 r PLLC 3f2-76s2-f l a21-e3su9j Luz Maria nn eccf33 2015-11-26 2015-11-26 REFILL REQ [facility]Fl[facility] 93 l7j5p7-9 Memoria 22:26:00 22:26:00 r PLLC 1ce-44e3-9 l 0af-cb63f0 Luz Maria nn 3217dc 2015-11-26 2015-11-26 REFILL REQ [facility]Fl[facility] 77 97hp45-4 Memoria 22:26:00 22:26:00 r PLLC 8cb-4b88-8 l y69-km2ta0 Luz Maria nn 2ca9f8 2015-11-26 2015-11-26 REFILL REQ [facility] d4 2c5fl5-e Memoria 22:26:00 22:26:00 r PLLC 3fb-4dcf-9 l 719-5f2a2d Luz Maria nn 712f81 2015-11-26 2015-11-26 REFILL REQ [facility] 9f 58476r-0 Memoria 22:26:00 22:26:00 r PLLC bdd-4787-8 l m31-632e2m Luz Maria nn e6546k 2015-11-26 2015-11-26 REFILL REQ [facility] 3b 9221ec-5 Memoria 22:26:00 22:26:00 r PLLC h0i-2247-s l o2n-qiihu7 Luz Maria nn 89fdc3 2015-11-26 2015-11-26 REFILL REQ [facility] 6e 9f8800-e Memoria 22:26:00 22:26:00 r PLLC u71-3177-l l b1a-16kg0s Luz Maria nn 8e0e07 2015-11-26 2015-11-26 Outpatient [facility] [id number] eClinic 17:26:00 17:26:00 e PLLC PLLC alWork s 2015-10-14 2015-10-14 [facility] 81df bbb4-e Memoria 19:45:00 19:45:00 F/U r PLLC a7t-0m3r-e l 287-37668g [facility] nn b310e9 2015-10-14 2015-10-14 [facility] 3f22 f51f-3 Memoria 19:45:00 19:45:00 F/U r PLLC 9p2-6j89-0 l 0be-612fa4 [facility] nn 8c311o 2015-10-14 2015-10-14 [facility] 421f ab3c-8 Memoria 18:45:00 18:45:00 F/U r PLLC 5ae-45b2-a l 619-66e31a [facility] nn cf38b3 2015-10-14 2015-10-14 [facility]Fl[facility] 308d 0798-c Memoria 18:45:00 18:45:00 F/U r PLLC 471-4efc-8 l ec4-690fe6 [facility] nn 455d57 2015-10-14 2015-10-14 [facility]Fl[facility] 7e1a f1e5-a Memoria 18:45:00 18:45:00 F/U r PLLC ab9-4fdb-9 l cf5-hw900q [facility] nn b35dc6 2015-10-14 2015-10-14 [facility] 6bfb 60f6-3 Memoria 18:45:00 18:45:00 F/U r PLLC 054-4867-b l 1de-0c45db Luz Maria nn e1c26c 2015-10-14 2015-10-14 Outpatient [facility] [id number] eClinic 13:45:00 13:45:00 e PLLC PLLC alWork s 2015-10-06 2015-10-07 [facility] nullFlavo [facility] [id number] Memoria 06:47:00 02:30:00 Observatio r [place] 02 l n Patient Susanne Diaz [facility] 2015-10-06 2015-10-06 Outpatient Sneha Lowe [place] [id number] 00:47:00 20:30:00 Issac 02 2015-04-29 2015-05-01 OBS nullFlavo [facility] [id number] Memoria 19:56:00 22:50:00 Observatio r Lorenzo 01 l n Patient Susanne Diaz [facility] 2015-04-29 2015-05-01 Outpatient Hilaria, [place] [id number] 14:56:00 17:50:00 Tiffani L 01 2015-03-28 2015-03-28 OBS nullFlavo [facility] [id number] Memoria 05:48:00 20:50:00 Observatio r Lorenzo 00 l n Patient Susanne cadet [facility] 2015-03-28 2015-03-28 Outpatient Favian [facility] [id number] 00:48:00 15:50:00 Ketul 00 [place] Results Test Description Test Time Test Comments Results Result Comments Source Partial Thromboplastin Time 2021-06-27 07:25:00 Test Item Value Reference Range Interpretation Comme nts Partial Thromboplastin Time (test 30.0 Seconds 23.9-32.8 N *Note New Reference Range code = PTT) Complete Blood Count w/o [id number] 07:25:00 Test Item Value Reference Range Interpretation Comments White Blood Count (test code = 10.2 x10 3/uL 4.4-10.5 N WBCT) Red Blood Count (test code = 4.15 x10 6/uL 4.10-5.70 N RBC) Hemoglobin (test code = HGBT) 12.7 g/dL 13.4-17.4 L Hematocrit (test code = HCTT) 38.6 % 38.7-52.0 L Mean Corpuscular Volume (test 93.00 fL 80.00-100.00 N code = MCV) Mean Corpuscular Hemoglobin 30.6 pg 27.0-32.5 N (test code = MCH) Mean Corpuscular HGB Conc 32.90 g/dL 32.00-37.50 N (test code = MCHC) RDW Coefficient of Variation 13.8 % 11.5-14.5 N (test code = RDWCV) Platelet Count (test code = 107.0 x10 3/uL 140.0-440.0 L PLTT) Mean Platelet Volume (test 9.9 fL code = MPV) nRBC Abs (test code = NRBCA) 0 nRBC Pct (test code = NRBCP) 0 % Comprehensive Metabolic [id number] 07:25:00 Test Item Value Reference Range Interpretation Comments SODIUM (test code = NA) 140.0 mmol/L 136.0-145.0 N Potassium,K (test code = K) 3.7 mmol/L 3.0-5.1 N Chloride (test code = CL) 102 mmol/L 98-107 N Carbon Dioxide (test code = CO2) 30 mmol/L 20-31 N Anion Gap (test code = GAP) 8 mmol/L 5-15 N Blood Urea Nitrogen (test code = 36 mg/dL 9-23 H BUN) Creatinine (test code = CREATT) 1.54 mg/dL 0.55-1.02 H Creatinine Clr Calc Pharmacy 37.09 mL/min (test code = CRCLPHA) Estimated GFR ( [place] 46 mL/min/1.73m2 (test code = EGFRAA) Estimated GFR (Non Afr [place] 40 mL/min/1.73m2 (test code = EGFRNAA) BUN/Creatinine Ratio (test code 23 ratio 10-20 H = BCRATIO) Glucose (test code = GLU) 153 mg/dL 74-106 H Osmolality,Calculated (test code 300.8 = OSMOC) Calcium (test code = CA) 8.9 mg/dL 8.3-10.6 N Bilirubin,Total (test code = 1.0 mg/dL 0.2-1.1 N BILIT) Aspartate Amino Transferase < 8 U/L 0-34 N (test code = AST) Alanine Aminotransferase (test 13 U/L 10-49 N code = ALT) Total Protein (test code = TP) 6.5 g/dL 5.7-8.2 N Albumin Level (test code = ALB) 4.4 g/dL 3.2-4.8 N Globulin (test code = GLOB) 2.1 mg/dL 2.3-3.5 L Albumin/Globulin Ratio (test 2.1 ratio 0.8-2.0 H code = AGRATIO) Alkaline Phosphatase (test code 66 U/L 46-116 N = ALP) Lipid [id number] 07:25:00 Test Item Value Reference Range Interpretation Comments Triglycerides (test code 114 mg/dL 9-200 N = TRIG) Cholesterol (test code = 135 mg/dL 0-200 N CHOL) LDL 74 mg/dL 0-130 N LDL (mg/dL)Opti mal Cholesterol,Calculated <100N ear Optimal (test code = LDLC) 100-129Bo rderline High 130-159Hig h 160-189Very Hig h >=190 VLDL CHOLESTEROL (test 23 mg/dL code = VLDL) HDL Cholesterol (test 38 mg/dL 40-60 L code = HDL) LDL/HDL Ratio (test code 2 = LDLHDL) Chol/HDL Ratio (test code 3.6 ratio 0.0-5.0 N = CHLHDL) Prothrombin Time [id number] 07:25:00 Test Item Value Reference Range Interpretation Comments Prothrombin Time 11.1 Seconds 9.3-12.1 N *Note New R eference (test code = PT) Range INR (test code = 1.0 ratio 0.9-1.2 N Reference I nterval is INR) for non-anticoagula wilma patients.Sugges wilma INR Therapeutic Range for Vitamin K antogonistthera py:LEV ELS OFTHERAPY INDICATIONS TAR GET INR RANGEStanda rd Dose Venous Thrombosis, 2.0 - 3.0 Atrial Fibrilla tion, Pulmonary Embolism.High D ose Valvular Heart Disease, 2.5 - 3.5 Mechanical Hear t, Intracardiac Thrombosis.*Not e New Reference Range CHEM [id number] 10:08:00 Test Item Value Reference Range Interpretation Comments eGFR (test code = eGFR) 39 [facility] [employer] [id number] 10:08:00 Test Item Value Reference Range Interpretation Comments Calcium Lvl (test code = Calcium Lvl) 8.6 8.5-10.5 [facility] [employer] [id number] 10:08:00 Test Item Value Reference Range Interpretation Comments Sodium Lvl (test code = Sodium Lvl) 138 135-145 [facility] [employer] [id number] 10:08:00 Test Item Value Reference Range Interpretation Comments Potassium Lvl (test code = Potassium 4.1 3.5-5.1 Lvl) [facility]2019-01-15 10:08:00 Test Item Value Reference Range Interpretation Comments Chloride Lvl (test code = Chloride Lvl) 102 95-109 [facility]2019-01-15 10:08:00 Test Item Value Reference Range Interpretation Comments CO2 (test code = CO2) 28 24-32 [facility]2019-01-15 10:08:00 Test Item Value Reference Range Interpretation Comments Glucose Lvl (test code = Glucose Lvl) 108 70-99 [facility]2019-01-15 10:08:00 Test Item Value Reference Range Interpretation Comments BUN (test code = BUN) 33 7-22 [facility]2019-01-15 10:08:00 Test Item Value Reference Range Interpretation Comments Creatinine Lvl (test code = Creatinine 1.60 0.50-1.40 Lvl) [facility]2019-01-15 10:08:00 Test Item Value Reference Range Interpretation Comments AGAP (test code = AGAP) 12.1 10.0-20.0 [id number] 10:08:00 Test Item Value Reference Range Interpretation Comments Lymphocytes # (test code = Lymphocytes 1.6 1.0-5.5 #) [facility] [id number] 10:08:00 Test Item Value Reference Range Interpretation Comments Neutrophils # (test code = Neutrophils 5.0 1.5-8.1 #) [facility] PointeLxbkzyxSOBORENRGL7027-88-49 10:08:00 Test Item Value Reference Range Interpretation Comments Basophils (test code = Basophils) 0.6 <=1.0 [facility] PointeAvgqmgmHJYFBTDNYX8557-72-88 10:08:00 Test Item Value Reference Range Interpretation Comments Eosinophils (test code = Eosinophils) 1.9 <=4.0 [facility] PointeHxinxdmQRKVBHBFCP7839-61-44 10:08:00 Test Item Value Reference Range Interpretation Comments Monocytes # (test code = Monocytes #) 0.7 <=0.8 [facility] PointeFntlqumVLKKPZRRZC2813-95-47 10:08:00 Test Item Value Reference Range Interpretation Comments Eosinophils # (test code = Eosinophils 0.1 <=0.5 #) [facility] PointeTlflxkzNSDZHUSXKT4068-50-63 10:08:00 Test Item Value Reference Range Interpretation Comments Segs (test code = Segs) 66.5 45.0-75.0 [facility] PointeFlykdmmCMXWDNHXRW7700-68-10 10:08:00 Test Item Value Reference Range Interpretation Comments Monocytes (test code = Monocytes) 10.0 2.0-12.0 [facility] PointeMutcwsyWLAVADSOEK9465-63-46 10:08:00 Test Item Value Reference Range Interpretation Comments Lymphocytes (test code = Lymphocytes) 21.0 20.0-40.0 [facility] PointeNilvtdyIVOTMZFOUV1234-17-72 10:08:00 Test Item Value Reference Range Interpretation Comments WBC (test code = WBC) 7.5 3.7-10.4 [facility] PointeZozvwwwBLNQNYECHW4854-33-19 10:08:00 Test Item Value Reference Range Interpretation Comments Platelet (test code = Platelet) 123 133-450 [facility] PointeSvsuqwiQHXBRZFNOB4100-22-19 10:08:00 Test Item Value Reference Range Interpretation Comments RDW (test code = RDW) 17.5 11.5-14.5 [facility] PointeJuhvojvRXSVBYBQST0739-18-70 10:08:00 Test Item Value Reference Range Interpretation Comments MPV (test code = MPV) 7.6 7.4-10.4 [facility] PointeAezmpqzPFILUSEQSH5766-51-45 10:08:00 Test Item Value Reference Range Interpretation Comments Hgb (test code = Hgb) 11.2 14.0-18.0 [facility] PointeWwhliwfMGASXIPYQV7111-44-00 10:08:00 Test Item Value Reference Range Interpretation Comments RBC (test code = RBC) 4.13 4.70-6.10 [facility] PointeTeeapskOBTNEEHRSE8835-33-68 10:08:00 Test Item Value Reference Range Interpretation Comments Hct (test code = Hct) 34.6 42.0-54.0 [facility] PointeYkwdagcUOOWPFOJMQ8391-06-65 10:08:00 Test Item Value Reference Range Interpretation Comments MCV (test code = MCV) 83.7 80.0-94.0 [facility] PointeCvvrkpnFGVMSPLKUO3481-32-62 10:08:00 Test Item Value Reference Range Interpretation Comments MCHC (test code = MCHC) 32.4 32.0-36.0 [facility] PointeMjawoaoBJFKOPWWUR0403-31-94 10:08:00 Test Item Value Reference Range Interpretation Comments MCH (test code = MCH) 27.1 pg 27.0-31.0 [facility]2019-01-14 23:31:00 Test Item Value Reference Range Interpretation Comments eGFR (test code = eGFR) 36 [facility]2019-01-14 23:31:00 Test Item Value Reference Range Interpretation Comments AGAP (test code = AGAP) 10.7 10.0-20.0 [facility] [place]2019-01-14 23:31:00 Test Item Value Reference Range Interpretation Comments Potassium Lvl (test code = Potassium 3.7 3.5-5.1 Lvl) [facility] [id number] 23:31:00 Test Item Value Reference Range Interpretation Comments BUN (test code = BUN) 29 7-22 [facility] [id number] 23:31:00 Test Item Value Reference Range Interpretation Comments Calcium Lvl (test code = Calcium Lvl) 8.4 8.5-10.5 [facility] [id number] 23:31:00 Test Item Value Reference Range Interpretation Comments Creatinine Lvl (test code = Creatinine 1.72 0.50-1.40 Lvl) [facility] [id number] 23:31:00 Test Item Value Reference Range Interpretation Comments Sodium Lvl (test code = Sodium Lvl) 137 135-145 [facility] [id number] 23:31:00 Test Item Value Reference Range Interpretation Comments Chloride Lvl (test code = Chloride Lvl) 99 95-109 [facility] [id number] 23:31:00 Test Item Value Reference Range Interpretation Comments CO2 (test code = CO2) 31 24-32 [facility] [id number] 23:31:00 Test Item Value Reference Range Interpretation Comments Glucose Lvl (test code = Glucose Lvl) 153 70-99 [facility] HospitalS[facility] DrinkCARContentWatchAC [id number] 09:43:00 Test Item Value Reference Range Interpretation Comments BNP (test code = BNP) 776 [facility] [id number] 22:46:00 Test Item Value Reference Range Interpretation Comments BNP (test code = BNP) [address] [facility] CenterJdfpuniYYKFAWLGCHBZ4705-22-23 22:46:00 Test Item Value Reference Range Interpretation Comments CO2 (test code = CO2) 29 24-32 [facility] HospitalDrioxzmVDIWTYTQVAWI4342-79-85 22:46:00 Test Item Value Reference Range Interpretation Comments Calcium Lvl (test code = Calcium Lvl) 8.5 8.5-10.5 [facility] HospitalDzsquowKWYOTHCISZUO4483-27-08 22:46:00 Test Item Value Reference Range Interpretation Comments Glucose Lvl (test code = Glucose Lvl) 106 70-99 [facility] HospitalLycvrziPQJUSCJUDGQT4859-48-66 22:46:00 Test Item Value Reference Range Interpretation Comments Chloride Lvl (test code = Chloride Lvl) 100 95-109 [facility] HospitalKciyeatEGWWWFANUKOY4284-46-30 22:46:00 Test Item Value Reference Range Interpretation Comments Potassium Lvl (test code = Potassium 3.7 3.5-5.1 Lvl) [facility] HospitalQkmumdyDIFGCXUVPGTC1808-89-64 22:46:00 Test Item Value Reference Range Interpretation Comments BUN (test code = BUN) 28 7-22 [facility] HospitalGpnbynlIPNPNSOBRJSW5250-23-37 22:46:00 Test Item Value Reference Range Interpretation Comments Sodium Lvl (test code = Sodium Lvl) 136 135-145 [facility] HospitalXjrfrlbAZJSQBFIMMNL3452-97-85 22:46:00 Test Item Value Reference Range Interpretation Comments Creatinine Lvl (test code = Creatinine 1.71 0.50-1.40 Lvl) [facility] HospitalIrlnkqxJYFIYQXMOJEB0772-21-57 22:46:00 Test Item Value Reference Range Interpretation Comments eGFR (test code = eGFR) 36 [facility] HospitalPxnjkqeHQLIFRPNKBWH7362-17-81 22:46:00 Test Item Value Reference Range Interpretation Comments AGAP (test code = AGAP) 10.7 10.0-20.0 [facility] PointeGtffaggOEJRNWHVGB4740-22-51 22:46:00 Test Item Value Reference Range Interpretation Comments Basophils # (test code = Basophils #) 0.1 <=0.2 [facility] PointeSfezvrzXLPXXXPPRV0386-34-83 22:46:00 Test Item Value Reference Range Interpretation Comments Segs (test code = Segs) 66.9 45.0-75.0 [facility] PointeZbdoxnqTDRMWTNYTC3366-56-25 22:46:00 Test Item Value Reference Range Interpretation Comments Monocytes (test code = Monocytes) 9.5 2.0-12.0 [facility] PointeExeowvsMGNMZSKQIL9867-28-82 22:46:00 Test Item Value Reference Range Interpretation Comments Lymphocytes (test code = Lymphocytes) 20.1 20.0-40.0 [facility] PointeOdirbmlYFYJIKWLHQ6150-13-25 22:46:00 Test Item Value Reference Range Interpretation Comments Eosinophils (test code = Eosinophils) 2.6 <=4.0 [facility] PointeTbrrurqNQPTXISWCY7785-08-63 22:46:00 Test Item Value Reference Range Interpretation Comments Neutrophils # (test code = Neutrophils 6.0 1.5-8.1 #) [facility] PointeMfuhtdlQKXTMMLAQE1130-73-38 22:46:00 Test Item Value Reference Range Interpretation Comments Basophils (test code = Basophils) 0.9 <=1.0 [facility] PointeXfufitePTKHTGXPZT3338-88-47 22:46:00 Test Item Value Reference Range Interpretation Comments Eosinophils # (test code = Eosinophils 0.2 <=0.5 #) [facility] PointeWgldsntXRMBGIEXRX3212-26-68 22:46:00 Test Item Value Reference Range Interpretation Comments Monocytes # (test code = Monocytes #) 0.9 <=0.8 [facility] PointeOrzbilcBORVYHGBUH1614-06-70 22:46:00 Test Item Value Reference Range Interpretation Comments Lymphocytes # (test code = Lymphocytes 1.8 1.0-5.5 #) [facility] PointeXrjgovwHMASMQYYRM8013-01-23 22:46:00 Test Item Value Reference Range Interpretation Comments MCHC (test code = MCHC) 32.5 32.0-36.0 [facility] PointeHzqejqyKAVGHWTLAR0120-81-19 22:46:00 Test Item Value Reference Range Interpretation Comments MCH (test code = MCH) 27.1 pg 27.0-31.0 [facility] PointeEpldfiiGQYZOTRZFR9653-76-80 22:46:00 Test Item Value Reference Range Interpretation Comments MCV (test code = MCV) 83.6 80.0-94.0 [facility] PointeObpjathEAKSZNTWHJ5953-20-07 22:46:00 Test Item Value Reference Range Interpretation Comments RDW (test code = RDW) 17.2 11.5-14.5 [facility] PointeQgfyacqSPVXPDQVCY2851-90-14 22:46:00 Test Item Value Reference Range Interpretation Comments MPV (test code = MPV) 7.5 7.4-10.4 [facility] PointePimcvtlTMWOAEVCTR1019-31-70 22:46:00 Test Item Value Reference Range Interpretation Comments Platelet (test code = Platelet) 150 133-450 [facility]yaizbqWVMIYDBRBQ8811[facility]-66 22:46:00 Test Item Value Reference Range Interpretation Comments Hgb (test code = Hgb) 12.1 14.0-18.0 [facility]ombYfrjaftXICXFQMJYY9844-19-81 22:46:00 Test Item Value Reference Range Interpretation Comments RBC (test code = RBC) 4.47 4.70-6.10 [facility]OezcbqtZNEACBQQHN1220-77-63 22:46:00 Test Item Value Reference Range Interpretation Comments WBC (test code = WBC) 9.0 3.7-10.4 [facility]ombGuqisfeFMRMRYAQWZ6674-20-26 22:46:00 Test Item Value Reference Range Interpretation Comments Hct (test code = Hct) 37.3 42.0-54.0 [facility] [id number] 20:13:00 Test Item Value Reference Range Interpretation Comments BNP (test code = BNP) 519 [facility] HGVQDUX0710-02-91 20:13:00 Test Item Value Reference Range Interpretation Comments Troponin-I (test code = Troponin-I) 0.04 <=0.40 [facility]leBlackBridgeAC ZVDNTFZ5005-81-12 20:13:00 Test Item Value Reference Range Interpretation Comments Total CK (test code = Total CK) 70 12-191 [facility]PgygfjoXLYKLKBCXSEX7795-41-43 20:13:00 Test Item Value Reference Range Interpretation Comments AGAP (test code = AGAP) 11.3 10.0-20.0 [facility] HospitalTjpefllAMRHHVAQILJY7836-36-19 20:13:00 Test Item Value Reference Range Interpretation Comments B/C Ratio (test code = B/C Ratio) 15 1 6-25 [facility] CenterVgdjpwrYRDQLONKPEIL8578-20-65 20:13:00 Test Item Value Reference Range Interpretation Comments Globulin (test code = Globulin) 3.8 2.7-4.2 [facility]XwhcenwOYEVCKBDZUXV9086-03-49 20:13:00 Test Item Value Reference Range Interpretation Comments A/G Ratio (test code = A/G Ratio) 0.9 1 0.7-1.6 [facility] HospitalJgkivzlVYDTIFLPMOHQ4491-24-99 20:13:00 Test Item Value Reference Range Interpretation Comments eGFR (test code = eGFR) 37 [facility] HospitalPxhfukdFJCONJVFEVIZ3350-24-91 20:13:00 Test Item Value Reference Range Interpretation Comments Bili Total (test code = Bili Total) 0.7 0.2-1.3 [facility] HospitalHwzwkknVFGZGUXIXDMW6995-74-25 20:13:00 Test Item Value Reference Range Interpretation Comments Creatinine Lvl (test code = Creatinine 1.67 0.50-1.40 Lvl) [facility] HospitalEfuvjxaSUXUFWCFPXQG4145-67-67 20:13:00 Test Item Value Reference Range Interpretation Comments BUN (test code = BUN) 25 7-22 [facility] HospitalLccsrjxHYOLYJUBMNFT4536-94-65 20:13:00 Test Item Value Reference Range Interpretation Comments Sodium Lvl (test code = Sodium Lvl) 137 135-145 [facility] HospitalSonbyiuODHLDAPHHWYZ1272-32-78 20:13:00 Test Item Value Reference Range Interpretation Comments Potassium Lvl (test code = Potassium 4.3 3.5-5.1 Lvl) [facility] HospitalNeubnqhKIRKGLGSIQHH5751-82-39 20:13:00 Test Item Value Reference Range Interpretation Comments Glucose Lvl (test code = Glucose Lvl) 104 70-99 [facility] HospitalOaauwnpLKNILEXYONTH4289-51-58 20:13:00 Test Item Value Reference Range Interpretation Comments ALT (test code = ALT) 16 <=65 [facility] HospitalUaozzkbATIKKQXQJNHU3580-25-18 20:13:00 Test Item Value Reference Range Interpretation Comments Alk Phos (test code = Alk Phos) 110 39-136 [facility] HospitalTsbdabzTMBJUZQLRQLJ3571-52-81 20:13:00 Test Item Value Reference Range Interpretation Comments AST (test code = AST) 17 <=37 [facility] HospitalVmtpbzbLSYMHTAYJXXB1284-45-85 20:13:00 Test Item Value Reference Range Interpretation Comments Calcium Lvl (test code = Calcium Lvl) 8.3 8.5-10.5 [facility] HospitalRphwrgyPESQIPZUKCCE2464-81-14 20:13:00 Test Item Value Reference Range Interpretation Comments Total Protein (test code = Total 7.4 6.4-8.4 Protein) [facility] HospitalFzjgxliZXOWLNHQDZNR3112-43-04 20:13:00 Test Item Value Reference Range Interpretation Comments Chloride Lvl (test code = Chloride Lvl) 102 95-109 [facility] HospitalAazgmkrNVVNHMVXCMLD8266-13-08 20:13:00 Test Item Value Reference Range Interpretation Comments CO2 (test code = CO2) 28 24-32 [facility] HospitalQlbgcrmVMGVWEVLHALT2968-62-70 20:13:00 Test Item Value Reference Range Interpretation Comments Albumin Lvl (test code = Albumin Lvl) 3.6 3.5-5.0 [facility]LwpwypwSAVSLNWLBR2998-03-08 20:13:00 Test Item Value Reference Range Interpretation Comments Eosinophils # (test code = Eosinophils 0.3 <=0.5 #) [facility] PointeWgkglrmRTAKKOVCKV3914-69-50 20:13:00 Test Item Value Reference Range Interpretation Comments Basophils # (test code = Basophils #) 0.1 <=0.2 [facility] PointeCzywmjrPUDEKDWFRE2779-84-83 20:13:00 Test Item Value Reference Range Interpretation Comments Eosinophils (test code = Eosinophils) 3.4 <=4.0 [facility] PointePxrqygwPCWUXJPDPV3562-04-69 20:13:00 Test Item Value Reference Range Interpretation Comments Monocytes (test code = Monocytes) 10.5 2.0-12.0 [facility] PointeAhswomcGFUOUWCTNQ0404-13-98 20:13:00 Test Item Value Reference Range Interpretation Comments Monocytes # (test code = Monocytes #) 0.8 <=0.8 [facility] PointeQdbuxpqBWYAIYGVKP3385-55-86 20:13:00 Test Item Value Reference Range Interpretation Comments Lymphocytes (test code = Lymphocytes) 19.5 20.0-40.0 [facility] PointeBfkrzghFDFRRRXZNT5184-59-44 20:13:00 Test Item Value Reference Range Interpretation Comments Segs (test code = Segs) 65.7 45.0-75.0 [facility] PointeQcsnmexTKMUCMTDPC4140-16-69 20:13:00 Test Item Value Reference Range Interpretation Comments Lymphocytes # (test code = Lymphocytes 1.5 1.0-5.5 #) [facility] PointeKhsuzxuMVWFBLMRMV6719-00-43 20:13:00 Test Item Value Reference Range Interpretation Comments Basophils (test code = Basophils) 0.9 <=1.0 [facility] PointeEujxbpgQNRMJAFZTJ9688-77-68 20:13:00 Test Item Value Reference Range Interpretation Comments Neutrophils # (test code = Neutrophils 5.2 1.5-8.1 #) [facility] PointeVarfxdbCDMRTCRDGD1745-26-10 20:13:00 Test Item Value Reference Range Interpretation Comments MPV (test code = MPV) 7.5 7.4-10.4 [facility] PointeTwqzoowKNBYNNVHXZ3911-88-87 20:13:00 Test Item Value Reference Range Interpretation Comments Platelet (test code = Platelet) 132 133-450 [facility] PointeSrrbvtaWAMZLOLNUP0055-59-58 20:13:00 Test Item Value Reference Range Interpretation Comments RDW (test code = RDW) 16.6 11.5-14.5 [facility] PointeCbrkockCMBBDXDLHK3714-05-68 20:13:00 Test Item Value Reference Range Interpretation Comments RBC (test code = RBC) 4.15 4.70-6.10 [facility] PointeIxufzrxLWMYIEUXQX2989-55-93 20:13:00 Test Item Value Reference Range Interpretation Comments WBC (test code = WBC) 7.9 3.7-10.4 [facility] PointeHvkuzsiNNDPLPIVKF8210-79-27 20:13:00 Test Item Value Reference Range Interpretation Comments MCH (test code = MCH) 27.1 pg 27.0-31.0 [facility] PointeFufvxsqVDURSEGBMQ9403-90-08 20:13:00 Test Item Value Reference Range Interpretation Comments MCHC (test code = MCHC) 31.8 32.0-36.0 [facility] PointeBrickkxXSEONQCMTL0190-63-76 20:13:00 Test Item Value Reference Range Interpretation Comments MCV (test code = MCV) 85.5 80.0-94.0 [facility] PointeEddjuytBHLWIQZLUT9991-06-21 20:13:00 Test Item Value Reference Range Interpretation Comments Hgb (test code = Hgb) 11.3 14.0-18.0 [facility] PointeOmdoleoQKPWXXHCXV0632-43-42 20:13:00 Test Item Value Reference Range Interpretation Comments Hct (test code = Hct) 35.5 42.0-54.0 [facility]2019-01-11 20:13:00 Test Item Value Reference Range Interpretation Comments UA Spec Grav (test code = UA Spec 1.008 1 Grav) [facility] AND [id number] 20:13:00 Test Item Value Reference Range Interpretation Comments UA Protein (test code Negative (08/19/18 2:13 = UA Protein) PM) [facility] AND [id number] 20:13:00 Test Item Value Reference Range Interpretation Comments UA pH (test code = UA pH) 7.0 1 5.0-8.0 [facility]2019-01-11 20:13:00 Test Item Value Reference Range Interpretation Comments UA Glucose (test code Negative *NA*(08/19/18 = UA Glucose) 2:13 PM) [facility] AND [id number] 20:13:00 Test Item Value Reference Range Interpretation Comments UA Ketones (test code Negative *NA*(08/19/18 = UA Ketones) 2:13 PM) [facility] AND [id number] 20:13:00 Test Item Value Reference Range Interpretation Comments UA Bili (test code = Negative *NA*(08/19/18 UA Bili) 2:13 PM) [facility] AND [id number] 20:13:00 Test Item Value Reference Range Interpretation Comments UA Blood (test code = Negative (08/19/18 2:13 UA Blood) PM) [facility] AND [id number] 20:13:00 Test Item Value Reference Range Interpretation Comments UA Nitrite (test code Negative (08/19/18 2:13 = UA Nitrite) PM) [facility] AND [id number] 20:13:00 Test Item Value Reference Range Interpretation Comments UA Urobilinogen (test code = UA <=1.0 mg/dL 0.1-1.0 Urobilinogen) [facility] AND [id number] 20:13:00 Test Item Value Reference Range Interpretation Comments UA WBC (test code = UA None Seen (08/19/18 2:13 <=5 WBC) PM) [facility] AND [id number] 20:13:00 Test Item Value Reference Range Interpretation Comments UA RBC (test code = UA None Seen (08/19/18 2:13 <=2 RBC) PM) [facility] AND [id number] 20:13:00 Test Item Value Reference Range Interpretation Comments UA Sq Epi (test code = None Seen (08/19/18 2:13 UA Sq Epi) PM) [facility] AND [id number] 20:13:00 Test Item Value Reference Range Interpretation Comments UA Leuk Est (test Negative (08/19/18 2:13 code = UA Leuk Est) PM) [facility] AND [id number] 20:13:00 Test Item Value Reference Range Interpretation Comments UA Bacteria (test code = None Seen (08/19/18 UA Bacteria) 2:13 PM) [facility] AND [id number] 20:13:00 Test Item Value Reference Range Interpretation Comments UA Mucus (test code = None Seen (08/19/18 UA Mucus) 2:13 PM) [facility] AND [id number] 20:13:00 Test Item Value Reference Range Interpretation Comments UA Color (test code = Light Yellow UA Color) *NA*(08/19/18 2:13 PM) [facility] AND [id number] 20:13:00 Test Item Value Reference Range Interpretation Comments UA Turbidity (test code = Clear (08/19/18 2:13 UA Turbidity) PM) [facility] [place]2019-01-08 12:26:00 Test Item Value Reference Range Interpretation Comments eGFR (test code = eGFR) 41 [facility] [place]2019-01-08 12:26:00 Test Item Value Reference Range Interpretation Comments CO2 (test code = CO2) 28 24-32 [facility] [place]2019-01-08 12:26:00 Test Item Value Reference Range Interpretation Comments Calcium Lvl (test code = Calcium Lvl) 7.9 8.5-10.5 [facility] [place]2019-01-08 12:26:00 Test Item Value Reference Range Interpretation Comments Glucose Lvl (test code = Glucose Lvl) 112 70-99 [facility] [place]2019-01-08 12:26:00 Test Item Value Reference Range Interpretation Comments BUN (test code = BUN) 20 7-22 [facility] [place]2019-01-08 12:26:00 Test Item Value Reference Range Interpretation Comments Sodium Lvl (test code = Sodium Lvl) 139 135-145 [facility] [place]2019-01-08 12:26:00 Test Item Value Reference Range Interpretation Comments Creatinine Lvl (test code = Creatinine 1.54 0.50-1.40 Lvl) [facility] [place]2019-01-08 12:26:00 Test Item Value Reference Range Interpretation Comments Chloride Lvl (test code = Chloride Lvl) 103 95-109 [facility] [place]2019-01-08 12:26:00 Test Item Value Reference Range Interpretation Comments Potassium Lvl (test code = Potassium 3.4 3.5-5.1 Lvl) [facility] [place]2019-01-08 12:26:00 Test Item Value Reference Range Interpretation Comments AGAP (test code = AGAP) 11.4 10.0-20.0 [facility] [place]2019-01-08 12:26:00 Test Item Value Reference Range Interpretation Comments Magnesium Lvl (test code = Magnesium 2.4 1.8-2.4 Lvl) [facility] PointeNlutzvuEROAHERIWW9520-56-55 12:26:00 Test Item Value Reference Range Interpretation Comments Neutrophils # (test code = Neutrophils 3.4 1.5-8.1 #) [facility] PointeQclbolnVSPOTJBYFS6244-28-11 12:26:00 Test Item Value Reference Range Interpretation Comments Basophils (test code = Basophils) 1.0 <=1.0 [facility] PointeBcofrypXYGTMFBCBI4575-05-94 12:26:00 Test Item Value Reference Range Interpretation Comments Lymphocytes # (test code = Lymphocytes 1.4 1.0-5.5 #) [facility] PointeRuhpuzfFDRJIOLGHE1870-34-82 12:26:00 Test Item Value Reference Range Interpretation Comments Eosinophils (test code = Eosinophils) 4.5 <=4.0 [facility] PointeYeeawcpANOLQOZUYO0582-17-93 12:26:00 Test Item Value Reference Range Interpretation Comments Lymphocytes (test code = Lymphocytes) 24.7 20.0-40.0 [facility] PointeUzrjmppLEHAGKLYJR0061-54-47 12:26:00 Test Item Value Reference Range Interpretation Comments Monocytes (test code = Monocytes) 11.3 2.0-12.0 [facility] PointeRtnsanzHATPJBUAKW8288-70-12 12:26:00 Test Item Value Reference Range Interpretation Comments Monocytes # (test code = Monocytes #) 0.7 <=0.8 [facility] PointeQomxjtzIYIHALQMDX6405-16-76 12:26:00 Test Item Value Reference Range Interpretation Comments Basophils # (test code = Basophils #) 0.1 <=0.2 [facility] PointeIybswfpFZCBNEONKE0572-35-77 12:26:00 Test Item Value Reference Range Interpretation Comments Eosinophils # (test code = Eosinophils 0.3 <=0.5 #) [facility] PointeAtairkkKKUVWXKLNE4855-87-04 12:26:00 Test Item Value Reference Range Interpretation Comments Segs (test code = Segs) 58.5 45.0-75.0 [facility] PointeNbhtrdtSWHDSJWSYO4399-71-22 12:26:00 Test Item Value Reference Range Interpretation Comments RDW (test code = RDW) 16.8 11.5-14.5 [facility]bujnyLCUBWCBELA3031-69-23 12:26:00 Test Item Value Reference Range Interpretation Comments MCH (test code = MCH) 27.6 pg 27.0-31.0 [facility]RxdafqdYYQRBFFGML1994-69-75 12:26:00 Test Item Value Reference Range Interpretation Comments MCHC (test code = MCHC) 33.0 32.0-36.0 [facility] PointeVfxaiyoXLDEUJTECK1462-35-78 12:26:00 Test Item Value Reference Range Interpretation Comments Hct (test code = Hct) 33.8 42.0-54.0 [facility] PointeNsuriigWIZSQFNNSP0375-00-03 12:26:00 Test Item Value Reference Range Interpretation Comments MCV (test code = MCV) 83.7 80.0-94.0 [facility] PointeMbzsxbgRCMRHTYPMI1998-09-65 12:26:00 Test Item Value Reference Range Interpretation Comments RBC (test code = RBC) 4.03 4.70-6.10 [facility] PointeZynxvcoSNMIHVJIIZ7175-29-70 12:26:00 Test Item Value Reference Range Interpretation Comments Hgb (test code = Hgb) 11.1 14.0-18.0 [facility] PointeVyuyboqTSDRBSYSAP1519-04-14 12:26:00 Test Item Value Reference Range Interpretation Comments WBC (test code = WBC) 5.8 3.7-10.4 [facility]PgpyylfCFGKOKTOTU8112-30-70 12:26:00 Test Item Value Reference Range Interpretation Comments Platelet (test code = Platelet) 110 133-450 [facility]SyltqpdBGHPJABXAD5627-20-92 12:26:00 Test Item Value Reference Range Interpretation Comments MPV (test code = MPV) 7.4 7.4-10.4 [facility]leCHEM WSDVM1523-34-40 08:54:00 Test Item Value Reference Range Interpretation Comments eGFR (test code = eGFR) 47 [facility] [id number] 08:54:00 Test Item Value Reference Range Interpretation Comments Calcium Lvl (test code = Calcium Lvl) 8.5 8.5-10.5 [facility] AzleCHEM [id number] 08:54:00 Test Item Value Reference Range Interpretation Comments CO2 (test code = CO2) 28 24-32 [facility] [place]2019-01-07 08:54:00 Test Item Value Reference Range Interpretation Comments Chloride Lvl (test code = Chloride Lvl) 104 95-109 [facility] [place]2019-01-07 08:54:00 Test Item Value Reference Range Interpretation Comments Potassium Lvl (test code = Potassium 3.6 3.5-5.1 Lvl) [facility] [place]2019-01-07 08:54:00 Test Item Value Reference Range Interpretation Comments Creatinine Lvl (test code = Creatinine 1.37 0.50-1.40 Lvl) [facility] [place]2019-01-07 08:54:00 Test Item Value Reference Range Interpretation Comments BUN (test code = BUN) 19 7-22 [facility] [place]2019-01-07 08:54:00 Test Item Value Reference Range Interpretation Comments Sodium Lvl (test code = Sodium Lvl) 141 135-145 [facility] [place]2019-01-07 08:54:00 Test Item Value Reference Range Interpretation Comments Glucose Lvl (test code = Glucose Lvl) 101 70-99 [facility]2019-01-07 08:54:00 Test Item Value Reference Range Interpretation Comments AGAP (test code = AGAP) 12.6 10.0-20.0 [facility]2019-01-07 08:54:00 Test Item Value Reference Range Interpretation Comments Phosphorus (test code = Phosphorus) 3.7 2.5-4.5 [facility] HospitalKlwwetpIYZAXUFXNMNS6172-76-28 08:54:00 Test Item Value Reference Range Interpretation Comments Chloride Lvl (test code = Chloride Lvl) 104 95-109 [facility] HospitalLrlhbytXIJELTZDLXFU0168-37-16 08:54:00 Test Item Value Reference Range Interpretation Comments CO2 (test code = CO2) 28 24-32 [facility] HospitalFokpsjfEDBNBFJEPTIP6161-41-43 08:54:00 Test Item Value Reference Range Interpretation Comments Calcium Lvl (test code = Calcium Lvl) 8.5 8.5-10.5 [facility] HospitalAcndzirRBFIBZCTNFOR4910-68-73 08:54:00 Test Item Value Reference Range Interpretation Comments Total Protein (test code = Total 6.9 6.4-8.4 Protein) [facility] HospitalDnkznzdDARAWUERRMCW0986-71-25 08:54:00 Test Item Value Reference Range Interpretation Comments Albumin Lvl (test code = Albumin Lvl) 3.3 3.5-5.0 [facility] HospitalRlicoptSFQJPFEPBAQR7327-10-33 08:54:00 Test Item Value Reference Range Interpretation Comments Glucose Lvl (test code = Glucose Lvl) 101 70-99 [facility] HospitalDwkoqhnOTUPEZPWUFFA0963-50-87 08:54:00 Test Item Value Reference Range Interpretation Comments BUN (test code = BUN) 19 7-22 [facility] HospitalWazyponWCYSDHNNZGSK5134-38-89 08:54:00 Test Item Value Reference Range Interpretation Comments eGFR (test code = eGFR) 47 [facility] HospitalTgdkuerVAAPULGJHDMI5329-02-34 08:54:00 Test Item Value Reference Range Interpretation Comments Bili Total (test code = Bili Total) 0.8 0.2-1.3 [facility] HospitalQsmdyoaJHBPCKHMXWZK2832-04-76 08:54:00 Test Item Value Reference Range Interpretation Comments AST (test code = AST) 20 <=37 [facility] HospitalDzwqlsmWBCYPKEEBOVP5784-24-68 08:54:00 Test Item Value Reference Range Interpretation Comments Alk Phos (test code = Alk Phos) 97 39-136 [facility] HospitalDegwelkLJEVYNKIBYQR6943-76-07 08:54:00 Test Item Value Reference Range Interpretation Comments ALT (test code = ALT) 15 <=65 [facility] HospitalVbgbxtiOUNVMXCZIANI5363-16-49 08:54:00 Test Item Value Reference Range Interpretation Comments Creatinine Lvl (test code = Creatinine 1.37 0.50-1.40 Lvl) [facility] HospitalHwhgjteNLILBXPRFDEU6300-41-53 08:54:00 Test Item Value Reference Range Interpretation Comments Sodium Lvl (test code = Sodium Lvl) 141 135-145 [facility] HospitalUnitqyyIZMZRYNYFVRM5751-28-73 08:54:00 Test Item Value Reference Range Interpretation Comments Potassium Lvl (test code = Potassium 3.6 3.5-5.1 Lvl) [facility] HospitalUolbjfaBOJNGYPVDJWK3730-55-02 08:54:00 Test Item Value Reference Range Interpretation Comments A/G Ratio (test code = A/G Ratio) 0.9 1 0.7-1.6 [facility] HospitalPxhtwiaNXZTWGVZGVUK8087-50-08 08:54:00 Test Item Value Reference Range Interpretation Comments AGAP (test code = AGAP) 12.6 10.0-20.0 [facility] HospitalQaidmxlTAXJRZUFGRAN1460-91-11 08:54:00 Test Item Value Reference Range Interpretation Comments B/C Ratio (test code = B/C Ratio) 14 1 6-25 [facility] HospitalOqanffyXLRROVKNMNHJ9478-20-39 08:54:00 Test Item Value Reference Range Interpretation Comments Globulin (test code = Globulin) 3.6 2.7-4.2 [facility]inteBwoybcrLHBXDLPAFH4027-86-50 08:54:00 Test Item Value Reference Range Interpretation Comments MPV (test code = MPV) 8.2 7.4-10.4 [facility] PointeJkqmurmNJQDQBWMAS5739-57-21 08:54:00 Test Item Value Reference Range Interpretation Comments Hct (test code = Hct) 35.0 42.0-54.0 [facility] PointeLphjyzdLLTYYLCJAK4717-72-39 08:54:00 Test Item Value Reference Range Interpretation Comments WBC (test code = WBC) 5.4 3.7-10.4 [facility] PointeDkgrwohHQARTVKTCA1282-86-09 08:54:00 Test Item Value Reference Range Interpretation Comments Hgb (test code = Hgb) 11.3 14.0-18.0 [facility] PointeUznvmyyEBHTGAHMWT3146-06-43 08:54:00 Test Item Value Reference Range Interpretation Comments RBC (test code = RBC) 4.14 4.70-6.10 [facility] PointeEyoycvjJJMKLVERIT2481-17-87 08:54:00 Test Item Value Reference Range Interpretation Comments Platelet (test code = Platelet) 113 133-450 [facility] PointeYglqmqbCBJSGHCOJA5943-18-10 08:54:00 Test Item Value Reference Range Interpretation Comments MCH (test code = MCH) 27.4 pg 27.0-31.0 [facility] PointeCswfohnMNJTWZQUBW2772-23-37 08:54:00 Test Item Value Reference Range Interpretation Comments MCV (test code = MCV) 84.7 80.0-94.0 [facility] PointeUlzgwhaPMLTKCGDOW7841-02-12 08:54:00 Test Item Value Reference Range Interpretation Comments RDW (test code = RDW) 16.7 11.5-14.5 [facility] PointeLgexwgwJMMDBUVFYG4606-70-71 08:54:00 Test Item Value Reference Range Interpretation Comments MCHC (test code = MCHC) 32.4 32.0-36.0 [facility] PointeDffpnhpGSECUUEYBA6165-00-49 08:54:00 Test Item Value Reference Range Interpretation Comments Neutrophils # (test code = Neutrophils 3.0 1.5-8.1 #) [facility] PointeSakjotjIVYPZPCSNS3698-37-53 08:54:00 Test Item Value Reference Range Interpretation Comments Basophils (test code = Basophils) 0.8 <=1.0 [facility] PointeMphydkeOOCCDHIWHQ9184-20-07 08:54:00 Test Item Value Reference Range Interpretation Comments Eosinophils (test code = Eosinophils) 5.0 <=4.0 [facility] PointeXadvvldJQBBUVNNIG2131-44-88 08:54:00 Test Item Value Reference Range Interpretation Comments Monocytes # (test code = Monocytes #) 0.7 <=0.8 [facility] PointeTtcyzedHABOHIBDRF5728-10-64 08:54:00 Test Item Value Reference Range Interpretation Comments Lymphocytes # (test code = Lymphocytes 1.5 1.0-5.5 #) [facility] PointeRjkncfzURSKQFNPTV7177-72-40 08:54:00 Test Item Value Reference Range Interpretation Comments Segs (test code = Segs) 54.3 45.0-75.0 [facility] PointeNnpczbuPMLMUTKGOB2390-96-64 08:54:00 Test Item Value Reference Range Interpretation Comments Monocytes (test code = Monocytes) 12.5 2.0-12.0 [facility] PointePxtmauoHAFOVBYUGX9683-66-54 08:54:00 Test Item Value Reference Range Interpretation Comments Lymphocytes (test code = Lymphocytes) 27.4 20.0-40.0 [facility] PointeHuqovsmJUQPSUKGOF5704-79-55 08:54:00 Test Item Value Reference Range Interpretation Comments Eosinophils # (test code = Eosinophils 0.3 <=0.5 #) [facility]leCARDIAC OHDXEQR8198-22-47 10:58:00 Test Item Value Reference Range Interpretation Comments Troponin-I (test code = Troponin-I) 0.06 <=0.40 [facility] AzleCARAC OANCOBH2870-92-72 10:58:00 Test Item Value Reference Range Interpretation Comments BNP (test code = BNP) 554 [facility] AzleChemclin WHNSP7656-48-94 10:58:00 Test Item Value Reference Range Interpretation Comments B/C Ratio (test code = B/C Ratio) 15 1 6-25 [facility] AzleChemclin REFIQ6861-39-07 10:58:00 Test Item Value Reference Range Interpretation Comments A/G Ratio (test code = A/G Ratio) 0.9 1 0.7-1.6 [facility]2019-01-06 10:58:00 Test Item Value Reference Range Interpretation Comments Globulin (test code = Globulin) 4.0 2.7-4.2 [facility]2019-01-06 10:58:00 Test Item Value Reference Range Interpretation Comments Alk Phos (test code = Alk Phos) 124 39-136 [facility]2019-01-06 10:58:00 Test Item Value Reference Range Interpretation Comments AST (test code = AST) 24 <=37 [facility]2019-01-06 10:58:00 Test Item Value Reference Range Interpretation Comments Bili Total (test code = Bili Total) 0.6 0.2-1.3 [facility]2019-01-06 10:58:00 Test Item Value Reference Range Interpretation Comments Total Protein (test code = Total 7.5 6.4-8.4 Protein) [facility]2019-01-06 10:58:00 Test Item Value Reference Range Interpretation Comments ALT (test code = ALT) 16 <=65 [facility]2019-01-06 10:58:00 Test Item Value Reference Range Interpretation Comments Albumin Lvl (test code = Albumin Lvl) 3.5 3.5-5.0 [facility] PointeZedwpcaLRDDWOVVIN9409-56-62 10:58:00 Test Item Value Reference Range Interpretation Comments Hgb (test code = Hgb) 11.9 14.0-18.0 [facility] PointeTvunqnjXGWLRIWSFX2526-59-98 10:58:00 Test Item Value Reference Range Interpretation Comments RBC (test code = RBC) 4.33 4.70-6.10 [facility] PointeLnymxdnGGPGVIOYYS0189-66-70 10:58:00 Test Item Value Reference Range Interpretation Comments MPV (test code = MPV) 7.6 7.4-10.4 [facility] PointeGwjfqrsLAUTLGMKSB8161-09-56 10:58:00 Test Item Value Reference Range Interpretation Comments Platelet (test code = Platelet) 152 133-450 [facility] PointeRjslakcKAFSEEENRE5985-05-81 10:58:00 Test Item Value Reference Range Interpretation Comments RDW (test code = RDW) 17.2 11.5-14.5 [facility] PointeRgymwtoWQVHOAGBHD4220-96-86 10:58:00 Test Item Value Reference Range Interpretation Comments MCV (test code = MCV) 85.5 80.0-94.0 [facility] PointeIezdkkuVQIEMIJKJV3943-42-53 10:58:00 Test Item Value Reference Range Interpretation Comments MCH (test code = MCH) 27.5 pg 27.0-31.0 [facility] PointeQgarwynNSWYIHELUQ8813-38-21 10:58:00 Test Item Value Reference Range Interpretation Comments Hct (test code = Hct) 37.0 42.0-54.0 [facility] PointePgimjxwYQYJVUTITX1470-15-68 10:58:00 Test Item Value Reference Range Interpretation Comments WBC (test code = WBC) 8.3 3.7-10.4 [facility] PointeReapiydXQZZWLYFZD1226-21-83 10:58:00 Test Item Value Reference Range Interpretation Comments MCHC (test code = MCHC) 32.1 32.0-36.0 [facility] PointeGtlghwpJNCSXGJXTF6123-21-32 10:58:00 Test Item Value Reference Range Interpretation Comments Lymphocytes # (test code = Lymphocytes 2.0 1.0-5.5 #) [facility] PointeFjfgdubKUPBRZCPLM9319-96-68 10:58:00 Test Item Value Reference Range Interpretation Comments Neutrophils # (test code = Neutrophils 5.0 1.5-8.1 #) [facility] PointeYalprngYOEPBTKVTI4698-06-85 10:58:00 Test Item Value Reference Range Interpretation Comments Eosinophils # (test code = Eosinophils 0.4 <=0.5 #) [facility] PointeXgclikcYBDUNBSSYO0972-33-25 10:58:00 Test Item Value Reference Range Interpretation Comments Monocytes # (test code = Monocytes #) 0.8 <=0.8 [facility] PointeDnxjrkfCIKFEEGUGC5711-95-24 10:58:00 Test Item Value Reference Range Interpretation Comments Basophils (test code = Basophils) 1.2 <=1.0 [facility] PointeBccxsqoOWREOOKYIT9939-07-47 10:58:00 Test Item Value Reference Range Interpretation Comments Lymphocytes (test code = Lymphocytes) 24.4 20.0-40.0 [facility] PointeLoartxaHUFDFQJBZV8991-25-91 10:58:00 Test Item Value Reference Range Interpretation Comments Segs (test code = Segs) 59.9 45.0-75.0 [facility] PointeNrrcegeLOOZEFGNID9879-95-25 10:58:00 Test Item Value Reference Range Interpretation Comments Eosinophils (test code = Eosinophils) 4.8 <=4.0 [facility] PointeXkcmcnaXYFCNPNZNG1475-64-36 10:58:00 Test Item Value Reference Range Interpretation Comments Monocytes (test code = Monocytes) 9.7 2.0-12.0 [facility] PointeQsndyhhGZDIKWDDWR0261-43-75 10:58:00 Test Item Value Reference Range Interpretation Comments Basophils # (test code = Basophils #) 0.1 <=0.2 [facility] HospitalBxysfqsXGUEIYVQALHD6773-55-77 00:39:00 Test Item Value Reference Range Interpretation Comments AGAP (test code = AGAP) 11.3 10.0-20.0 [facility] HospitalAgsoyssNFOGCZAEMFCF1983-93-88 00:39:00 Test Item Value Reference Range Interpretation Comments eGFR (test code = eGFR) 39 [facility] HospitalPkswlzeAAKSOHZCGGOG4113-72-54 00:39:00 Test Item Value Reference Range Interpretation Comments Calcium Lvl (test code = Calcium Lvl) 8.7 8.5-10.5 [facility] HospitalCphmpidSSXSBYHKPTSX9822-37-94 00:39:00 Test Item Value Reference Range Interpretation Comments Glucose Lvl (test code = Glucose Lvl) 129 70-99 [facility] HospitalFjwgycpQQOPGAPTWHMV3280-29-45 00:39:00 Test Item Value Reference Range Interpretation Comments BUN (test code = BUN) 21 7-22 [facility] HospitalIkiiozfEGEOWKDCLLCG8056-91-83 00:39:00 Test Item Value Reference Range Interpretation Comments Creatinine Lvl (test code = Creatinine 1.61 0.50-1.40 Lvl) [facility] HospitalHdslutaIPDUSQOSFXBL0604-44-22 00:39:00 Test Item Value Reference Range Interpretation Comments Sodium Lvl (test code = Sodium Lvl) 138 135-145 [facility] HospitalDyupoqyILVARIYTLIXE3131-54-74 00:39:00 Test Item Value Reference Range Interpretation Comments Potassium Lvl (test code = Potassium 4.3 3.5-5.1 Lvl) [facility] HospitalNftzcndOWRPVHKJTLYL5960-55-81 00:39:00 Test Item Value Reference Range Interpretation Comments Chloride Lvl (test code = Chloride Lvl) 104 95-109 [facility] HospitalLcknggyRROCOFVCVVNK0828-04-69 00:39:00 Test Item Value Reference Range Interpretation Comments CO2 (test code = CO2) 27 24-32 [facility] PointeRzigdhxGROLEXYLUZ3646-38-09 00:39:00 Test Item Value Reference Range Interpretation Comments INR (test code = INR) 1.34 1 0.85-1.17 [facility] PointePbijydsIWTBVZBIUF3984-22-85 00:39:00 Test Item Value Reference Range Interpretation Comments PT (test code = PT) 16.7 s 12.0-14.7 [facility] PointeLifhqyiYXAPJZFSIG5919-66-84 00:39:00 Test Item Value Reference Range Interpretation Comments PTT (test code = PTT) 34.8 s 22.9-35.8 [facility] PointeJemjealQPKBQVGJLF1306-16-63 00:39:00 Test Item Value Reference Range Interpretation Comments RBC (test code = RBC) 4.57 4.70-6.10 [facility] PointeGpflixiCFXXIPQRWS6216-15-06 00:39:00 Test Item Value Reference Range Interpretation Comments Hgb (test code = Hgb) 13.8 14.0-18.0 [facility] PointeMdjnikwDVAWJXALLO3607-75-22 00:39:00 Test Item Value Reference Range Interpretation Comments MCHC (test code = MCHC) 33.0 32.0-36.0 [facility] PointeNrwyyaxDONRPIZHWH3274-02-06 00:39:00 Test Item Value Reference Range Interpretation Comments MCV (test code = MCV) 91.6 80.0-94.0 [facility] PointePvvqxkbWOMUFNLBLE9188-51-99 00:39:00 Test Item Value Reference Range Interpretation Comments MCH (test code = MCH) 30.3 pg 27.0-31.0 [facility] PointeShzgfmmTGXEYLCBGH6973-22-57 00:39:00 Test Item Value Reference Range Interpretation Comments Hct (test code = Hct) 41.9 42.0-54.0 [facility] PointeCkgvjscGLZHCRZBNS0418-68-34 00:39:00 Test Item Value Reference Range Interpretation Comments Platelet (test code = Platelet) 104 766-450 [facility] PointeRbymoctGNOBTUFKNZ2879-66-06 00:39:00 Test Item Value Reference Range Interpretation Comments MPV (test code = MPV) 7.8 7.4-10.4 [facility] PointeBkmrgfoSPWSEQYHZQ0571-83-53 00:39:00 Test Item Value Reference Range Interpretation Comments RDW (test code = RDW) 15.3 11.5-14.5 [facility] PointeHnesxtlDQKYQZLCIP1389-97-60 00:39:00 Test Item Value Reference Range Interpretation Comments WBC (test code = WBC) 10.6 3.7-10.4 [facility] PointeWnjvabkMIDKTBULXC2015-23-19 00:39:00 Test Item Value Reference Range Interpretation Comments Monocytes (test code = Monocytes) 15.1 2.0-12.0 [facility] PointeFqqemooEXVCKQSBWX6022-06-03 00:39:00 Test Item Value Reference Range Interpretation Comments Lymphocytes (test code = Lymphocytes) 16.6 20.0-40.0 [facility] PointeDzdwyxiJNDTRBHWFH6268-82-15 00:39:00 Test Item Value Reference Range Interpretation Comments Eosinophils (test code = Eosinophils) 1.0 <=4.0 [facility] PointePjxtkmdGYSOGEMMXL2798-73-42 00:39:00 Test Item Value Reference Range Interpretation Comments Basophils (test code = Basophils) 0.9 <=1.0 [facility] PointeMwrhddvQOXKVVSZRW2790-10-03 00:39:00 Test Item Value Reference Range Interpretation Comments Monocytes # (test code = Monocytes #) 1.6 <=0.8 [facility] PointeMbusggmKJVIWNSYFL1125-38-79 00:39:00 Test Item Value Reference Range Interpretation Comments Lymphocytes # (test code = Lymphocytes 1.8 1.0-5.5 #) [facility] PointeNajloxeRVXEKYONFS6637-67-59 00:39:00 Test Item Value Reference Range Interpretation Comments Neutrophils # (test code = Neutrophils 7.0 1.5-8.1 #) [facility] PointeEatrjnlAOAXOFMFET9479-94-12 00:39:00 Test Item Value Reference Range Interpretation Comments Basophils # (test code = Basophils #) 0.1 <=0.2 [facility] PointeCkhdxaqEUDRAKSRUJ5354-70-56 00:39:00 Test Item Value Reference Range Interpretation Comments Eosinophils # (test code = Eosinophils 0.1 <=0.5 #) [facility] PointeJfmguwoTKAQHUAVAR0645-83-68 00:39:00 Test Item Value Reference Range Interpretation Comments Segs (test code = Segs) 66.4 45.0-75.0 [facility]2018-06-30 01:11:00 Test Item Value Reference Range Interpretation Comments eGFR (test code = eGFR) 43 [facility]2018-06-30 01:11:00 Test Item Value Reference Range Interpretation Comments Albumin Lvl (test code = Albumin Lvl) 4.0 3.5-5.0 [facility]2018-06-30 01:11:00 Test Item Value Reference Range Interpretation Comments Total Protein (test code = Total 7.7 6.4-8.4 Protein) [facility]2018-06-30 01:11:00 Test Item Value Reference Range Interpretation Comments Calcium Lvl (test code = Calcium Lvl) 8.8 8.5-10.5 [facility]2018-06-30 01:11:00 Test Item Value Reference Range Interpretation Comments CO2 (test code = CO2) 26 24-32 [facility]2018-06-30 01:11:00 Test Item Value Reference Range Interpretation Comments Chloride Lvl (test code = Chloride Lvl) 106 95-109 [facility]2018-06-30 01:11:00 Test Item Value Reference Range Interpretation Comments Bili Total (test code = Bili Total) 0.5 0.2-1.3 [facility]2018-06-30 01:11:00 Test Item Value Reference Range Interpretation Comments AST (test code = AST) 67 <=37 [facility]2018-06-30 01:11:00 Test Item Value Reference Range Interpretation Comments Alk Phos (test code = Alk Phos) 116 39-136 [facility]2018-06-30 01:11:00 Test Item Value Reference Range Interpretation Comments ALT (test code = ALT) 58 <=65 [facility]2018-06-30 01:11:00 Test Item Value Reference Range Interpretation Comments Glucose Lvl (test code = Glucose Lvl) 118 70-99 [facility]2018-06-30 01:11:00 Test Item Value Reference Range Interpretation Comments Potassium Lvl (test code = Potassium 3.6 3.5-5.1 Lvl) [facility]2018-06-30 01:11:00 Test Item Value Reference Range Interpretation Comments Sodium Lvl (test code = Sodium Lvl) 142 135-145 [facility]2018-06-30 01:11:00 Test Item Value Reference Range Interpretation Comments BUN (test code = BUN) 30 7-22 [facility]2018-06-30 01:11:00 Test Item Value Reference Range Interpretation Comments Creatinine Lvl (test code = Creatinine 1.49 0.50-1.40 Lvl) [facility]2018-06-30 01:11:00 Test Item Value Reference Range Interpretation Comments A/G Ratio (test code = A/G Ratio) 1.1 1 0.7-1.6 [facility]2018-06-30 01:11:00 Test Item Value Reference Range Interpretation Comments Globulin (test code = Globulin) 3.7 2.7-4.2 [facility]2018-06-30 01:11:00 Test Item Value Reference Range Interpretation Comments B/C Ratio (test code = B/C Ratio) 20 1 6-25 [facility]2018-06-30 01:11:00 Test Item Value Reference Range Interpretation Comments AGAP (test code = AGAP) 13.6 10.0-20.0 [facility] PointeVmombjuFERWHROUVU5521-43-07 01:11:00 Test Item Value Reference Range Interpretation Comments Basophils # (test code = Basophils #) 0.1 <=0.2 [facility] PointeAvrbocdZFBVVGVHFM2523-77-82 01:11:00 Test Item Value Reference Range Interpretation Comments Eosinophils # (test code = Eosinophils 0.3 <=0.5 #) [facility] PointeYxqohdzPTDGNWBVVN3468-49-91 01:11:00 Test Item Value Reference Range Interpretation Comments Lymphocytes # (test code = Lymphocytes 2.2 1.0-5.5 #) [facility] PointeCmrsccuIWKWGWJJON3220-49-41 01:11:00 Test Item Value Reference Range Interpretation Comments Segs-Bands # (test code = Segs-Bands #) 4.3 1.5-8.1 [facility] PointeWaeyugiHQKYGOARZP8545-30-44 01:11:00 Test Item Value Reference Range Interpretation Comments Basophils (test code = Basophils) 0.7 <=1.0 [facility] PointeKohfiwhKNKTPOLFDT3969-01-79 01:11:00 Test Item Value Reference Range Interpretation Comments Monocytes # (test code = Monocytes #) 0.7 <=0.8 [facility] PointeKasmzexYZHIMUAWAC2450-75-78 01:11:00 Test Item Value Reference Range Interpretation Comments Lymphocytes (test code = Lymphocytes) 29.2 20.0-40.0 [facility] PointeHrqzorkRYKEMWJUOZ3995-73-62 01:11:00 Test Item Value Reference Range Interpretation Comments Segs (test code = Segs) 57.1 45.0-75.0 [facility] PointeDsxtaolOKRGEYQQEK7656-32-35 01:11:00 Test Item Value Reference Range Interpretation Comments Eosinophils (test code = Eosinophils) 3.6 <=4.0 [facility] PointeQohmxnlYMZAEMICSP5969-79-79 01:11:00 Test Item Value Reference Range Interpretation Comments Monocytes (test code = Monocytes) 9.4 2.0-12.0 [facility] PointeGrdswxhRXMMTAXIPM0707-28-18 01:11:00 Test Item Value Reference Range Interpretation Comments INR (test code = INR) 1.11 1 0.85-1.17 [facility] PointeQwpqlanDMCRUEAXWG2257-93-15 01:11:00 Test Item Value Reference Range Interpretation Comments PTT (test code = PTT) 30.1 s 22.9-35.8 [facility] PointeLmihplqNWAYXXQXFL0478-23-65 01:11:00 Test Item Value Reference Range Interpretation Comments PT (test code = PT) 14.3 s 12.0-14.7 [facility] PointeStloicgZZDSTEIPCN7238-64-17 01:11:00 Test Item Value Reference Range Interpretation Comments RDW (test code = RDW) 15.6 11.5-14.5 [facility] PointeNnxxpbpNIXNXUVGIA6018-60-35 01:11:00 Test Item Value Reference Range Interpretation Comments Platelet (test code = Platelet) 124 133-450 [facility]inteCbljlllEDUJTKFSGB9719-91-78 01:11:00 Test Item Value Reference Range Interpretation Comments MPV (test code = MPV) 7.7 7.4-10.4 [facility] PointeEgercenULAHQVHIXB6532-40-70 01:11:00 Test Item Value Reference Range Interpretation Comments MCHC (test code = MCHC) 33.6 32.0-36.0 [facility] PointeZtcbzelMRXEUFQZUZ2423-08-62 01:11:00 Test Item Value Reference Range Interpretation Comments MCV (test code = MCV) 88.5 80.0-94.0 [facility] PointeUcthkmjTQBAXOBTUE5952-91-76 01:11:00 Test Item Value Reference Range Interpretation Comments MCH (test code = MCH) 29.8 pg 27.0-31.0 [facility] PointeHuvobnbGHBRXASNPY4512-39-80 01:11:00 Test Item Value Reference Range Interpretation Comments Hct (test code = Hct) 42.7 42.0-54.0 [facility] PointeJaeanmtVZZXHLIAIH1676-00-94 01:11:00 Test Item Value Reference Range Interpretation Comments WBC (test code = WBC) 7.5 3.7-10.4 [facility] PointeEkjsfvbGULKSVVMAK7600-36-01 01:11:00 Test Item Value Reference Range Interpretation Comments RBC (test code = RBC) 4.83 4.70-6.10 [facility] PointeZmqltkaHKQNYVEKWU1216-07-95 01:11:00 Test Item Value Reference Range Interpretation Comments Hgb (test code = Hgb) 14.4 14.0-18.0 [facility]le[facility] Hormone (TSH)2017-10-05 01:27:00 Test Item Value Reference Range Interpretation Comments TSH (test code = TSH) 6.80 mIU/mL 0.270-4.200 H Sed Rate ESR ([place])2017-10-05 00:48:00 Test Item Value Reference Range Interpretation Comments ESR (test code = HESR) 8 mm/Hr 0-9 N Lipid Mxhgfmv7653-39-33 21:21:00 Test Item Value Reference Range Interpretation [...] (test code = LDLC) DISEASEPu blished by [place] Heart AssociationAnal yte Optimal Boderli ne Increased RiskC HOL <200 200-239 >240TRI G <150 150-199 >200HDL Male: >60 <40HDL Fema le: >60 <50LDL <100 130 -159 >160LDL NEAR OP TIMAL IS 100-129 VLDL (test code = 61 mg/dL 5-40 H VLDL) LDL/HDL (test code = 1 LDLPHDL) Lnb-Ldx0636-22-26 21:21:00 Test Item Value Reference Range Interpretation Comments NT ProBnp (test code = PBNP) 2151 pg/mL 0-449 H Lipid Lmwmmlt5154-78-50 21:31:00 Test Item Value Reference Range Interpretation [...] (test code = LDLC) DISEASEPu blished by [place] Heart AssociationAnal yte Optimal Boderli ne Increased RiskC HOL <200 200-239 >240TRI G <150 150-199 >200HDL Male: >60 <40HDL Fema le: >60 <50LDL <100 130 -159 >160LDL NEAR OP TIMAL IS 100-129 VLDL (test code = 54 mg/dL 5-40 H VLDL) LDL/HDL (test code = 1 LDLPHDL) CARDIAC [id number] 03:28:00 Test Item Value Reference Range Interpretation Comments Total CK (test code = Total CK) 117 12-191 [facility] [id number] 03:28:00 Test Item Value Reference Range Interpretation Comments BNP (test code = BNP) 243 [facility] FJRSHBU0103-88-91 03:28:00 Test Item Value Reference Range Interpretation Comments CK MB (test code = CK MB) 3.6 0.5-3.6 [facility] [id number] 03:28:00 Test Item Value Reference Range Interpretation Comments Troponin-I (test code = Troponin-I) 0.02 <=0.40 [facility] RBKAUZN7694-95-84 03:28:00 Test Item Value Reference Range Interpretation Comments CK MB Index (test code = CK MB Index) 3.1 <=2.5 [facility] CondoDomainannCHEM [id number] 03:28:00 Test Item Value Reference Range Interpretation Comments Magnesium Lvl (test code = Magnesium 2.3 1.8-2.4 Lvl) [facility]annCHE[facility] [id number] 03:28:00 Test Item Value Reference Range Interpretation Comments Phosphorus (test code = Phosphorus) 3.3 2.5-4.5 [facility] UceclezVFZKOSATVITB0677-61-44 03:28:00 Test Item Value Reference Range Interpretation Comments CO2 (test code = CO2) 28 24-32 [facility] FbkznjeTYGEZXNLFHCK4292-88-63 03:28:00 Test Item Value Reference Range Interpretation Comments Chloride Lvl (test code = Chloride Lvl) 102 95-109 [facility] HospitalWnhdqftSQXJUVFGBECL5606-37-94 03:28:00 Test Item Value Reference Range Interpretation Comments Potassium Lvl (test code = Potassium 3.3 3.5-5.1 Lvl) [facility] HospitalWxpvxxfNJVFSGYNSQLW4741-11-98 03:28:00 Test Item Value Reference Range Interpretation Comments Sodium Lvl (test code = Sodium Lvl) 142 135-145 [facility] HospitalCtxdvwzMEADOQQIDCLB8137-51-50 03:28:00 Test Item Value Reference Range Interpretation Comments Creatinine Lvl (test code = Creatinine 2.00 0.50-1.40 Lvl) [facility] HospitalQoniiawHKJQGSBXUNHF8313-57-41 03:28:00 Test Item Value Reference Range Interpretation Comments eGFR (test code = eGFR) 30 [facility] HospitalNqxdfjtGLYSHZFCNQER1631-54-65 03:28:00 Test Item Value Reference Range Interpretation Comments A/G Ratio (test code = A/G Ratio) 1.1 0.7-1.6 [facility] HospitalKucibsiVBFDTLMCOTRP1602-24-99 03:28:00 Test Item Value Reference Range Interpretation Comments Globulin (test code = Globulin) 3.6 2.7-4.2 [facility] HospitalWvblrlxAPSSHMTZUHMJ9795-62-67 03:28:00 Test Item Value Reference Range Interpretation Comments AST (test code = AST) 48 <=37 [facility] HospitalAjzbhmwYIUBWBAFQZWK2374-95-06 03:28:00 Test Item Value Reference Range Interpretation Comments ALT (test code = ALT) 42 <=65 [facility] HospitalVdbvdodPTDMGPLALWQH9333-55-19 03:28:00 Test Item Value Reference Range Interpretation Comments Albumin Lvl (test code = Albumin Lvl) 4.0 3.5-5.0 [facility] HospitalVkpywibFSOSXQZVQTFH3473-99-02 03:28:00 Test Item Value Reference Range Interpretation Comments Total Protein (test code = Total 7.6 6.4-8.4 Protein) [facility] HospitalBajsjjnFWJVQDAOYKIH5249-71-79 03:28:00 Test Item Value Reference Range Interpretation Comments Calcium Lvl (test code = Calcium Lvl) 8.3 8.5-10.5 [facility] HospitalIrrzivtXEREGBRMBKSR6969-77-39 03:28:00 Test Item Value Reference Range Interpretation Comments B/C Ratio (test code = B/C Ratio) 16 6-25 [facility] HospitalStlzgmdWGIJYXBUBPDQ6353-31-27 03:28:00 Test Item Value Reference Range Interpretation Comments Bili Total (test code = Bili Total) 0.5 0.2-1.3 [facility] HospitalWxnyydxTLZXBRGJDGTO9001-07-00 03:28:00 Test Item Value Reference Range Interpretation Comments AGAP (test code = AGAP) 15.3 10.0-20.0 [facility] HospitalKgbtcgsKXRTACTGITRD0698-38-45 03:28:00 Test Item Value Reference Range Interpretation Comments Alk Phos (test code = Alk Phos) 88 39-136 [facility] HospitalNazijuvREWORCJTAKYP2802-59-15 03:28:00 Test Item Value Reference Range Interpretation Comments Glucose Lvl (test code = Glucose Lvl) 117 70-99 [facility] HospitalSenazipKYZZGMGMRKCS2344-69-98 03:28:00 Test Item Value Reference Range Interpretation Comments BUN (test code = BUN) 32 7-22 [facility]inteBviykbvYTTAFPSQPO7853-28-79 03:28:00 Test Item Value Reference Range Interpretation Comments Monocytes # (test code = Monocytes #) 0.9 <=0.8 [facility] PointeEkhftcnJFSAVMHXIL9645-83-52 03:28:00 Test Item Value Reference Range Interpretation Comments Eosinophils # (test code = Eosinophils 0.3 <=0.5 #) [facility] PointeKehykvnGMBAUKUAWB9566-61-37 03:28:00 Test Item Value Reference Range Interpretation Comments Basophils # (test code = Basophils #) 0.1 <=0.2 [facility] PointeSdmdvmvGKENNHNQGI4595-89-82 03:28:00 Test Item Value Reference Range Interpretation Comments Basophils (test code = Basophils) 1.3 <=1.0 [facility] PointeSnzwicgLJTUIENYQI6298-08-95 03:28:00 Test Item Value Reference Range Interpretation Comments Lymphocytes # (test code = Lymphocytes 1.6 1.0-5.5 #) [facility] PointeMlcsotpTJCTWDNYOZ1802-59-22 03:28:00 Test Item Value Reference Range Interpretation Comments Segs-Bands # (test code = Segs-Bands #) 5.2 1.5-8.1 [facility] PointeAhlaunuMLPVDILCPQ1840-73-52 03:28:00 Test Item Value Reference Range Interpretation Comments Segs (test code = Segs) 64.0 45.0-75.0 [facility] PointeAirrjbxXLXGQZCNAG7899-55-09 03:28:00 Test Item Value Reference Range Interpretation Comments Lymphocytes (test code = Lymphocytes) 20.3 20.0-40.0 [facility] PointeGynjnymKGCAYZLKHQ0281-15-40 03:28:00 Test Item Value Reference Range Interpretation Comments Monocytes (test code = Monocytes) 10.6 2.0-12.0 [facility] PointeXsibetnGTVIRAJMRN8906-71-66 03:28:00 Test Item Value Reference Range Interpretation Comments Eosinophils (test code = Eosinophils) 3.8 <=4.0 [facility] PointeGmzzrwaPFDSVBGQFZ6932-89-21 03:28:00 Test Item Value Reference Range Interpretation Comments MPV (test code = MPV) 7.0 7.4-10.4 [facility] PointeAgmqeixRNMGZLICWZ8295-48-79 03:28:00 Test Item Value Reference Range Interpretation Comments RBC (test code = RBC) 5.14 4.70-6.10 [facility] PointeXqxnkmmUPGJJAPSIJ3434-26-70 03:28:00 Test Item Value Reference Range Interpretation Comments Hct (test code = Hct) 45.2 42.0-54.0 [facility] PointeOwunaxnUDJBDHWUVA7006-35-84 03:28:00 Test Item Value Reference Range Interpretation Comments MCV (test code = MCV) 87.9 80.0-94.0 [facility] PointeGajyznyKXWURTBMSL4130-32-45 03:28:00 Test Item Value Reference Range Interpretation Comments Hgb (test code = Hgb) 14.9 14.0-18.0 [facility] PointeSojjhwyGGZPGOLKGF5557-34-07 03:28:00 Test Item Value Reference Range Interpretation Comments MCHC (test code = MCHC) 33.0 32.0-36.0 [facility] PointeIbhnlsyXXRIHBZBGX4360-39-69 03:28:00 Test Item Value Reference Range Interpretation Comments Platelet (test code = Platelet) 143 133-450 [facility] PointeQkhjtijTOKLKVGTMD2478-00-17 03:28:00 Test Item Value Reference Range Interpretation Comments MCH (test code = MCH) 29.1 pg 27.0-31.0 [facility] PointeDinajvfFWXGECBUPM4234-29-95 03:28:00 Test Item Value Reference Range Interpretation Comments RDW (test code = RDW) 15.5 11.5-14.5 [facility]leOwefutbFKAUDKWBRM2426-40-20 03:28:00 Test Item Value Reference Range Interpretation Comments WBC (test code = WBC) 8.1 3.7-10.4 [facility] YXLRLGS5470-75-44 07:46:00 Test Item Value Reference Range Interpretation Comments BNP (test code = BNP) 664 [facility] GKORIVZ5166-93-07 07:33:00 Test Item Value Reference Range Interpretation Comments Total CK (test code = Total CK) 76 12-191 [facility] NVLOFLZ6387-59-99 07:33:00 Test Item Value Reference Range Interpretation Comments Troponin-I (test code = Troponin-I) 0.03 <=0.40 [facility] HospitalannCARAC TJNTGFX4694-02-29 07:33:00 Test Item Value Reference Range Interpretation Comments CK MB (test code = CK MB) 3.0 0.5-3.6 [facility] MYMIYVB1809-55-41 07:33:00 Test Item Value Reference Range Interpretation Comments CK MB Index (test code = CK MB Index) 3.9 <=2.5 [facility] HospitalannCHEM VZQPH0779-47-46 07:33:00 Test Item Value Reference Range Interpretation Comments Lipase Lvl (test code = Lipase Lvl) 120 73-393 [facility] CenterVrtlhfoHFBDTSVECSRF5452-72-14 07:33:00 Test Item Value Reference Range Interpretation Comments Sodium Lvl (test code = Sodium Lvl) 141 135-145 [facility] HospitalUgodrdcFLIDWSFENGDL1452-69-86 07:33:00 Test Item Value Reference Range Interpretation Comments Potassium Lvl (test code = Potassium 3.8 3.5-5.1 Lvl) [facility] CenterNtizhiqIHJAPQZGGEJT3433-09-34 07:33:00 Test Item Value Reference Range Interpretation Comments Chloride Lvl (test code = Chloride Lvl) 107 95-109 [facility] CenterCvgohydOBWNDGWJUCBU2531-93-77 07:33:00 Test Item Value Reference Range Interpretation Comments Glucose Lvl (test code = Glucose Lvl) 121 70-99 [facility] HospitalClywfcqEMHCPSKPPEZH1428-49-40 07:33:00 Test Item Value Reference Range Interpretation Comments Creatinine Lvl (test code = Creatinine 1.65 0.50-1.40 Lvl) [facility] HospitalFrpvpdmVQZPBWWMHOQM5712-50-94 07:33:00 Test Item Value Reference Range Interpretation Comments Total Protein (test code = Total 7.0 6.4-8.4 Protein) [facility] HospitalCotjizgMFUCVSAJOQRV1988-03-62 07:33:00 Test Item Value Reference Range Interpretation Comments Calcium Lvl (test code = Calcium Lvl) 8.5 8.5-10.5 [facility] HospitalNnqamloOPEHUJBEGPTM8331-84-04 07:33:00 Test Item Value Reference Range Interpretation Comments BUN (test code = BUN) 28 7-22 [facility] HospitalJywccltVDXIIARBMZBU3504-65-89 07:33:00 Test Item Value Reference Range Interpretation Comments CO2 (test code = CO2) 24 24-32 [facility] HospitalGyuimmgVLQZAJDGXPHG8828-65-69 07:33:00 Test Item Value Reference Range Interpretation Comments AST (test code = AST) 47 <=37 [facility] HospitalCzhhqmwARRPRXBIOWHG1831-95-55 07:33:00 Test Item Value Reference Range Interpretation Comments Alk Phos (test code = Alk Phos) 97 39-136 [facility] HospitalAoieyhoZMFDRMGXSXZG0556-47-70 07:33:00 Test Item Value Reference Range Interpretation Comments ALT (test code = ALT) 49 <=65 [facility] HospitalQsrluooUFWYUAXOJPJV9852-07-77 07:33:00 Test Item Value Reference Range Interpretation Comments Albumin Lvl (test code = Albumin Lvl) 3.9 3.5-5.0 [facility] HospitalWgqlhkwRNETOQSFYIPB3668-11-93 07:33:00 Test Item Value Reference Range Interpretation Comments A/G Ratio (test code = A/G Ratio) 1.3 0.7-1.6 [facility] HospitalCxfufhrOVWSWBPGZCCC0112-10-73 07:33:00 Test Item Value Reference Range Interpretation Comments Globulin (test code = Globulin) 3.1 2.0-4.0 [facility] HospitalJqpnrzqDVSFLQEBGNLS2551-42-14 07:33:00 Test Item Value Reference Range Interpretation Comments B/C Ratio (test code = B/C Ratio) 17 6-25 [facility] HospitalBhbuipnVENUUTMUOSEC2353-13-98 07:33:00 Test Item Value Reference Range Interpretation Comments AGAP (test code = AGAP) 13.8 10.0-20.0 [facility] HospitalMlmzuvbHSSHBVOQQSLF3243-63-85 07:33:00 Test Item Value Reference Range Interpretation Comments Bili Total (test code = Bili Total) 0.7 0.2-1.3 [facility] HospitalQaydcvkKSJZDJNGGFYC9723-03-73 07:33:00 Test Item Value Reference Range Interpretation Comments eGFR (test code = eGFR) 38 [facility]inteQhltwbtZDHTPYDSLB2713-63-53 07:33:00 Test Item Value Reference Range Interpretation Comments INR (test code = INR) 1.20 0.85-1.17 [facility] PointeKnndvlkQYWGJQJOCW9776-57-15 07:33:00 Test Item Value Reference Range Interpretation Comments PT (test code = PT) 15.5 s 12.0-14.7 [facility] PointeOjmwrmtAQZAMGKXEA5759-75-63 07:33:00 Test Item Value Reference Range Interpretation Comments PTT (test code = PTT) 33.3 s 22.9-35.8 [facility] PointeOqykukkMJKBTSSSUI8492-86-97 07:33:00 Test Item Value Reference Range Interpretation Comments MPV (test code = MPV) 7.7 7.4-10.4 [facility] PointeTdwocxvICQTDSJXZN3237-13-94 07:33:00 Test Item Value Reference Range Interpretation Comments RDW (test code = RDW) 17.1 11.5-14.5 [facility] PointeXpbeodyAESBZMSLFE3844-85-57 07:33:00 Test Item Value Reference Range Interpretation Comments Platelet (test code = Platelet) 110 133-450 [facility] PointeLnoartpSVKRTEYNQN7900-73-63 07:33:00 Test Item Value Reference Range Interpretation Comments MCH (test code = MCH) 28.6 pg 27.0-31.0 [facility] PointeUnwnknrACMKFFBMGF5543-35-22 07:33:00 Test Item Value Reference Range Interpretation Comments MCHC (test code = MCHC) 32.6 32.0-36.0 [facility] PointeBphhurrKYNYNXYGTE0047-90-53 07:33:00 Test Item Value Reference Range Interpretation Comments MCV (test code = MCV) 87.5 80.0-94.0 [facility] PointeBcidlysNKQLMOHOVP9669-31-21 07:33:00 Test Item Value Reference Range Interpretation Comments Hct (test code = Hct) 41.5 42.0-54.0 [facility] PointeWxezreeDZCISWINUZ2714-49-24 07:33:00 Test Item Value Reference Range Interpretation Comments Hgb (test code = Hgb) 13.5 14.0-18.0 [facility] PointeIkktqimQGYLLIKWRG4102-63-00 07:33:00 Test Item Value Reference Range Interpretation Comments RBC (test code = RBC) 4.74 4.70-6.10 [facility] PointeJbcqupkKXCMOZPXWP3597-13-25 07:33:00 Test Item Value Reference Range Interpretation Comments WBC (test code = WBC) 7.9 3.7-10.4 [facility] PointeLftovbpVANZSQFZVI4294-17-47 07:33:00 Test Item Value Reference Range Interpretation Comments Eosinophils (test code = Eosinophils) 3.2 <=4.0 [facility] PointeRgqpadtLIOVIJEYCT6343-61-00 07:33:00 Test Item Value Reference Range Interpretation Comments Segs-Bands # (test code = Segs-Bands #) 5.5 1.5-8.1 [facility] PointeWwybibiTDQIOVWJQN4408-16-68 07:33:00 Test Item Value Reference Range Interpretation Comments Basophils (test code = Basophils) 0.5 <=1.0 [facility] PointeVfxiedoCFTHDSIPKC6610-73-29 07:33:00 Test Item Value Reference Range Interpretation Comments Lymphocytes # (test code = Lymphocytes 1.5 1.0-5.5 #) [facility] PointeMljehqcHUULSIHSHZ2610-24-53 07:33:00 Test Item Value Reference Range Interpretation Comments Monocytes (test code = Monocytes) 8.2 2.0-12.0 [facility] PointeBscornpPZEKGXHNGR9726-25-99 07:33:00 Test Item Value Reference Range Interpretation Comments Eosinophils # (test code = Eosinophils 0.3 <=0.5 #) [facility] PointeBtdrshvUPMJMJMJXO2786-48-46 07:33:00 Test Item Value Reference Range Interpretation Comments Basophils # (test code = Basophils #) 0.0 <=0.2 [facility] PointeSqtzkfhQZSDKORJCQ6939-66-25 07:33:00 Test Item Value Reference Range Interpretation Comments Monocytes # (test code = Monocytes #) 0.6 <=0.8 [facility] PointeCxceogaUPWPHDFGAF7243-67-93 07:33:00 Test Item Value Reference Range Interpretation Comments Segs (test code = Segs) 69.2 45.0-75.0 [facility] PointeXwuglzdBHRULUWKSM3047-49-49 07:33:00 Test Item Value Reference Range Interpretation Comments Lymphocytes (test code = Lymphocytes) 18.9 20.0-40.0 [facility]2016-02-28 07:33:00 Test Item Value Reference Range Interpretation Comments UA Spec Grav (test code = UA Spec Grav) 1.020 [facility] AND [id number] 07:33:00 Test Item Value Reference Range Interpretation Comments UA Turbidity (test code Slight *ABN*(10/06/15 = UA Turbidity) 1:33 AM) [facility] AND IEQRJ9145-14-66 07:33:00 Test Item Value Reference Range Interpretation Comments UA Color (test code = Dark Yellow UA Color) *NA*(10/06/15 1:33 AM) [facility] AND [id number] 07:33:00 Test Item Value Reference Range Interpretation Comments UA Mucus (test code = UA Mucus) Few /LPF [facility] AND [id number] 07:33:00 Test Item Value Reference Range Interpretation Comments UA Glucose (test code = UA Negative mg/dL Glucose) [facility] AND RCWTQ0370-59-71 07:33:00 Test Item Value Reference Range Interpretation Comments UA Protein (test code = UA Protein) 30 mg/dL [facility] AND [id number] 07:33:00 Test Item Value Reference Range Interpretation Comments UA pH (test code = UA pH) 5.0 5.0-8.0 [facility] AND OYCDJ3194-70-35 07:33:00 Test Item Value Reference Range Interpretation Comments UA Ketones (test code = UA Negative mg/dL Ketones) [facility] AND FWZPJ2654-95-63 07:33:00 Test Item Value Reference Range Interpretation Comments UA RBC (test code = UA RBC) no gt <=2 [facility] AND [id number] 07:33:00 Test Item Value Reference Range Interpretation Comments UA WBC (test code = UA WBC) 1 <=5 [facility] AND NUKQH2625-31-67 07:33:00 Test Item Value Reference Range Interpretation Comments UA Sq Epi (test code = UA Sq Occasional /LPF Epi) [facility] AND LXEFI3027-29-90 07:33:00 Test Item Value Reference Range Interpretation Comments UA Leuk Est (test Negative (10/06/15 1:33 code = UA Leuk Est) AM) [facility] AND [id number] 07:33:00 Test Item Value Reference Range Interpretation Comments UA Nitrite (test code Negative (10/06/15 1:33 = UA Nitrite) AM) [facility] AND [id number] 07:33:00 Test Item Value Reference Range Interpretation Comments UA Bili (test code = Negative *NA*(10/06/15 UA Bili) 1:33 AM) [facility] AND [id number] 07:33:00 Test Item Value Reference Range Interpretation Comments UA Urobilinogen (test code = UA 4.0 0.1-1.0 Urobilinogen) [facility] AND OBYOL0222-44-25 07:33:00 Test Item Value Reference Range Interpretation Comments UA Blood (test code = Negative (10/06/15 1:33 UA Blood) AM) [facility] AND [id number] 07:33:00 Test Item Value Reference Range Interpretation Comments UA Hyal Cast (test code = UA Hyal Cast) 12 <=2 [facility]inteMqtkbewXBUUVQOSFU7606-34-35 17:11:00 Test Item Value Reference Range Interpretation Comments Platelet (test code = Platelet) 119 133-450 [facility] PointeLnthlmbNUPQXCBHTY6480-03-98 17:11:00 Test Item Value Reference Range Interpretation Comments RDW (test code = RDW) 17.3 11.5-14.5 [facility] PointeEfyfywnOCCIPAARAQ4508-18-72 17:11:00 Test Item Value Reference Range Interpretation Comments MPV (test code = MPV) 8.5 7.4-10.4 [facility] PointeWqxqcmaOSLWHRFOIZ8592-06-35 17:11:00 Test Item Value Reference Range Interpretation Comments RBC (test code = RBC) 5.18 4.70-6.10 [facility] PointeXzgxnqgNRAXPBTRVT5105-31-24 17:11:00 Test Item Value Reference Range Interpretation Comments Hgb (test code = Hgb) 14.9 14.0-18.0 [facility] PointeMucferbYHBXGWHMNR3607-85-45 17:11:00 Test Item Value Reference Range Interpretation Comments MCH (test code = MCH) 28.9 pg 27.0-31.0 [facility] PointeVlozzmnXZJEFSPBSH6757-65-35 17:11:00 Test Item Value Reference Range Interpretation Comments MCHC (test code = MCHC) 31.8 32.0-36.0 [facility] PointeDynpkikHZAPLMBBDK5502-64-87 17:11:00 Test Item Value Reference Range Interpretation Comments MCV (test code = MCV) 90.7 80.0-94.0 [facility]NLKLCNMUK3161-83-57 17:11:00 Test Item Value Reference Range Interpretation Comments Hct (test code = Hct) 47.0 42.0-54.0 [facility] PointeMfvaqihQEUAKEBMVE9911-93-76 17:11:00 Test Item Value Reference Range Interpretation Comments WBC (test code = WBC) 11.8 3.7-10.4 [facility]2015-09-23 10:33:00 Test Item Value Reference Range Interpretation Comments eGFR (test code = eGFR) 19 [facility]2015-09-23 10:33:00 Test Item Value Reference Range Interpretation Comments Creatinine Lvl (test code = Creatinine 3.0 0.5-1.4 Lvl) [facility]2015-09-23 10:33:00 Test Item Value Reference Range Interpretation Comments Sodium Lvl (test code = Sodium Lvl) 136 135-145 [facility]2015-09-23 10:33:00 Test Item Value Reference Range Interpretation Comments Potassium Lvl (test code = Potassium 4.1 3.5-5.1 Lvl) [facility]2015-09-23 10:33:00 Test Item Value Reference Range Interpretation Comments Chloride Lvl (test code = Chloride Lvl) 101 95-109 [facility]2015-09-23 10:33:00 Test Item Value Reference Range Interpretation Comments BUN (test code = BUN) 62 7-22 [facility]2015-09-23 10:33:00 Test Item Value Reference Range Interpretation Comments Calcium Lvl (test code = Calcium Lvl) 8.6 8.5-10.5 [facility]2015-09-23 10:33:00 Test Item Value Reference Range Interpretation Comments AGAP (test code = AGAP) 11.1 10.0-20.0 [facility]2015-09-23 10:33:00 Test Item Value Reference Range Interpretation Comments CO2 (test code = CO2) 28 24-32 [facility]2015-09-23 10:33:00 Test Item Value Reference Range Interpretation Comments Glucose Lvl (test code = Glucose Lvl) 125 70-99 [facility] - [id number] 11:28:00 Test Item Value Reference Range Interpretation Comments MRSA by PCR (test Negative (04/30/15 6:28 code = MRSA by PCR) AM) [facility] [id number] 10:03:00 Test Item Value Reference Range Interpretation Comments Troponin-I (test code = Troponin-I) 0.02 <=0.40 [facility] [id number] 10:03:00 Test Item Value Reference Range Interpretation Comments Total CK (test code = Total CK) 66 12-191 [facility] [id number] 10:03:00 Test Item Value Reference Range Interpretation Comments eGFR (test code = eGFR) 16 [facility] [id number] 10:03:00 Test Item Value Reference Range Interpretation Comments Glucose Lvl (test code = Glucose Lvl) 129 70-99 [facility]2015-09-22 10:03:00 Test Item Value Reference Range Interpretation Comments Sodium Lvl (test code = Sodium Lvl) 136 135-145 [facility] [id number] 10:03:00 Test Item Value Reference Range Interpretation Comments Creatinine Lvl (test code = Creatinine 3.4 0.5-1.4 Lvl) [facility] [id number] 10:03:00 Test Item Value Reference Range Interpretation Comments BUN (test code = BUN) 53 7-22 [facility]2015-09-22 10:03:00 Test Item Value Reference Range Interpretation Comments Chloride Lvl (test code = Chloride Lvl) 108 95-109 [facility]2015-09-22 10:03:00 Test Item Value Reference Range Interpretation Comments Potassium Lvl (test code = Potassium 4.9 3.5-5.1 Lvl) [facility] [id number] 10:03:00 Test Item Value Reference Range Interpretation Comments Calcium Lvl (test code = Calcium Lvl) 8.2 8.5-10.5 [facility]2015-09-22 10:03:00 Test Item Value Reference Range Interpretation Comments CO2 (test code = CO2) 18 24-32 [facility] [id number] 10:03:00 Test Item Value Reference Range Interpretation Comments AGAP (test code = AGAP) 14.9 10.0-20.0 [facility] PointeJskryfrNFCISKNHGA6108-72-30 10:03:00 Test Item Value Reference Range Interpretation Comments RDW (test code = RDW) 17.7 11.5-14.5 [facility] PointeAmdvsglFJYIUWJCTZ0779-75-34 10:03:00 Test Item Value Reference Range Interpretation Comments Platelet (test code = Platelet) 123 133-450 [facility] PointeEilssurVFFNWTBEPB1606-36-49 10:03:00 Test Item Value Reference Range Interpretation Comments MPV (test code = MPV) 8.6 7.4-10.4 [facility] PointeMchduqsSXJINFCMVW2656-41-91 10:03:00 Test Item Value Reference Range Interpretation Comments Hct (test code = Hct) 48.1 42.0-54.0 [facility] PointeYxetukuQTUNFMUSWP2729-90-57 10:03:00 Test Item Value Reference Range Interpretation Comments WBC (test code = WBC) 14.6 3.7-10.4 [facility] PointeYkaxqttRYQBTBFPCU5659-98-69 10:03:00 Test Item Value Reference Range Interpretation Comments RBC (test code = RBC) 5.33 4.70-6.10 [facility] PointeCncfppzNGPZJYTWUD5421-80-72 10:03:00 Test Item Value Reference Range Interpretation Comments Hgb (test code = Hgb) 15.4 14.0-18.0 [facility] PointeLaucpbaFLMZFMYTJW5042-57-80 10:03:00 Test Item Value Reference Range Interpretation Comments MCHC (test code = MCHC) 32.1 32.0-36.0 [facility] PointeUutqgqlJAWPEJPPGS3451-01-60 10:03:00 Test Item Value Reference Range Interpretation Comments MCV (test code = MCV) 90.3 80.0-94.0 [facility] PointeXqkwmfjRBGOYBPYZW4504-12-13 10:03:00 Test Item Value Reference Range Interpretation Comments MCH (test code = MCH) 29.0 pg 27.0-31.0 [facility] PointeFpiekdlQVDTUYXRSI2054-39-26 10:03:00 Test Item Value Reference Range Interpretation Comments Basophils # (test code = Basophils #) 0.1 <=0.2 [facility] PointeRacbxetOAHJQQYOQI8632-08-14 10:03:00 Test Item Value Reference Range Interpretation Comments Eosinophils # (test code = Eosinophils 0.1 <=0.5 #) [facility] PointeGchlfcuEBTXUEFVOI3280-97-35 10:03:00 Test Item Value Reference Range Interpretation Comments Monocytes # (test code = Monocytes #) 1.1 <=0.8 [facility] HospitalVvnqdhjEXARNAYSEY1836-41-72 10:03:00 Test Item Value Reference Range Interpretation Comments Lymphocytes (test code = Lymphocytes) 25.1 20.0-40.0 [facility]pifoofMETNKOPGHP7214-08-64 10:03:00 Test Item Value Reference Range Interpretation Comments Segs (test code = Segs) 65.7 45.0-75.0 [facility] HospitalPzzbpfeAVILWTELJK3500-37-42 10:03:00 Test Item Value Reference Range Interpretation Comments Lymphocytes # (test code = Lymphocytes 3.7 1.0-5.5 #) [facility] HospitalElwgdpaIFTXHLZHWH8159-25-92 10:03:00 Test Item Value Reference Range Interpretation Comments Eosinophils (test code = Eosinophils) 0.7 <=4.0 [facility]ombFsbujhxJRCBEECJUX3249-88-53 10:03:00 Test Item Value Reference Range Interpretation Comments Monocytes (test code = Monocytes) 7.7 2.0-12.0 [facility] AzleUayklfnXYTJYPISWI3879-12-20 10:03:00 Test Item Value Reference Range Interpretation Comments Segs-Bands # (test code = Segs-Bands #) 9.6 1.5-8.1 [facility]ombObfzuzlGKLGHWNQKI9409-55-08 10:03:00 Test Item Value Reference Range Interpretation Comments Basophils (test code = Basophils) 0.8 <=1.0 [facility]leCARD[facility] [id number] 05:48:00 Test Item Value Reference Range Interpretation Comments Troponin-I (test code = Troponin-I) 0.04 <=0.40 [facility] [id number] 05:48:00 Test Item Value Reference Range Interpretation Comments Total CK (test code = Total CK) 53 12-191 [facility] HospitalannCHEM [id number] 05:48:00 Test Item Value Reference Range Interpretation Comments Phosphorus (test code = Phosphorus) 5.1 2.5-4.5 [facility] HospitalannCHEM [id number] 05:48:00 Test Item Value Reference Range Interpretation Comments Magnesium Lvl (test code = Magnesium 2.3 1.8-2.4 Lvl) [facility] HospitalannTHYROID [id number] 05:48:00 Test Item Value Reference Range Interpretation Comments TSH (test code = TSH) 2.730 0.360-3.740 [facility] [id number] 21:17:00 Test Item Value Reference Range Interpretation Comments UA Bili (test code = Small *ABN*(04/29/15 UA Bili) 4:17 PM) [facility] [id number] 21:17:00 Test Item Value Reference Range Interpretation Comments UA Blood (test code = Negative (04/29/15 4:17 UA Blood) PM) [facility] [id number] 21:17:00 Test Item Value Reference Range Interpretation Comments UA Sq Epi (test code = UA Sq Occasional /LPF Epi) [facility] [id number] 21:17:00 Test Item Value Reference Range Interpretation Comments UA Hyal Cast (test code 0-2 (04/29/15 4:17 PM) <=2 = UA Hyal Cast) [facility] [id number] 21:17:00 Test Item Value Reference Range Interpretation Comments UA Mucus (test code = UA Mucus) Few /LPF [facility] [id number] 21:17:00 Test Item Value Reference Range Interpretation Comments UA Bacteria (test code = UA Moderate /HPF Bacteria) [facility] [id number] 21:17:00 Test Item Value Reference Range Interpretation Comments UA RBC (test code = UA None Seen (04/29/15 4:17 <=2 RBC) PM) [facility] [id number] 21:17:00 Test Item Value Reference Range Interpretation Comments UA WBC (test code = UA WBC) 0-2 /HPF [facility] [id number] 21:17:00 Test Item Value Reference Range Interpretation Comments UA Urobilinogen (test code = UA 4.0 0.1-1.0 Urobilinogen) [facility] [id number] 21:17:00 Test Item Value Reference Range Interpretation Comments UA Leuk Est (test code Trace *ABN*(04/29/15 = UA Leuk Est) 4:17 PM) [facility] [id number] 21:17:00 Test Item Value Reference Range Interpretation Comments UA Nitrite (test code Negative (04/29/15 4:17 = UA Nitrite) PM) [facility] AND [id number] 21:17:00 Test Item Value Reference Range Interpretation Comments UA Spec Grav (test code = UA Spec 1.025 1 Grav) [facility] AND [id number] 21:17:00 Test Item Value Reference Range Interpretation Comments UA pH (test code = UA pH) 5.5 1 5.0-8.0 [facility] AND [id number] 21:17:00 Test Item Value Reference Range Interpretation Comments UA Ketones (test code = Trace *ABN*(04/29/15 UA Ketones) 4:17 PM) [facility] AND [id number] 21:17:00 Test Item Value Reference Range Interpretation Comments UA Protein (test code = UA Protein) 100 mg/dL [facility] AND [id number] 21:17:00 Test Item Value Reference Range Interpretation Comments UA Glucose (test code Negative (04/29/15 4:17 = UA Glucose) PM) [facility] AND [id number] 21:17:00 Test Item Value Reference Range Interpretation Comments UA Turbidity (test code = Clear (04/29/15 4:17 UA Turbidity) PM) [facility] AND [id number] 21:17:00 Test Item Value Reference Range Interpretation Comments UA Color (test code = Yellow *NA*(04/29/15 UA Color) 4:17 PM) [facility] HospitalPhilly Runway ThiefAC [id number] 20:22:00 Test Item Value Reference Range Interpretation Comments CK MB Index (test code = CK MB Index) 3.9 <=2.5 [facility]annCARDIAC [id number] 20:22:00 Test Item Value Reference Range Interpretation Comments BNP (test code = BNP) 935 [facility] AzleBlackBridgeAC [id number] 20:22:00 Test Item Value Reference Range Interpretation Comments CK MB (test code = CK MB) 3.0 0.5-3.6 [facility]annCARD[facility]AC [id number] 20:22:00 Test Item Value Reference Range Interpretation Comments Troponin-I (test code = Troponin-I) 0.04 <=0.40 [facility]annCARDIAC [id number] 20:22:00 Test Item Value Reference Range Interpretation Comments Total CK (test code = Total CK) 76 12-191 [facility] HospitalAmerican [facility] Corporation [id number] 20:22:00 Test Item Value Reference Range Interpretation Comments Magnesium Lvl (test code = Magnesium 2.3 1.8-2.4 Lvl) [facility]American [facility] [id number] 20:22:00 Test Item Value Reference Range Interpretation Comments eGFR (test code = eGFR) 17 [facility] [id number] 20:22:00 Test Item Value Reference Range Interpretation Comments A/G Ratio (test code = A/G Ratio) 1.1 0.7-1.6 [facility] [id number] 20:22:00 Test Item Value Reference Range Interpretation Comments Globulin (test code = Globulin) 3.2 2.0-4.0 [facility] [id number] 20:22:00 Test Item Value Reference Range Interpretation Comments B/C Ratio (test code = B/C Ratio) 15 6-25 [facility]leChemclin [id number] 20:22:00 Test Item Value Reference Range Interpretation Comments AST (test code = AST) 45 <=37 [facility] [id number] 20:22:00 Test Item Value Reference Range Interpretation Comments Bili Total (test code = Bili Total) 0.9 0.2-1.3 [facility] AzleChemclin [id number] 20:22:00 Test Item Value Reference Range Interpretation Comments Alk Phos (test code = Alk Phos) 96 39-136 [facility] AzleChemclin [id number] 20:22:00 Test Item Value Reference Range Interpretation Comments AGAP (test code = AGAP) 9.2 10.0-20.0 [facility] [id number] 20:22:00 Test Item Value Reference Range Interpretation Comments ALT (test code = ALT) 74 <=65 [facility] [id number] 20:22:00 Test Item Value Reference Range Interpretation Comments Albumin Lvl (test code = Albumin Lvl) 3.6 3.5-5.0 [facility]American [facility] [id number] 20:22:00 Test Item Value Reference Range Interpretation Comments Total Protein (test code = Total 6.8 6.4-8.4 Protein) [facility]2015-09-21 20:22:00 Test Item Value Reference Range Interpretation Comments Calcium Lvl (test code = Calcium Lvl) 8.6 8.5-10.5 [facility]2015-09-21 20:22:00 Test Item Value Reference Range Interpretation Comments Sodium Lvl (test code = Sodium Lvl) 139 135-145 [facility]2015-09-21 20:22:00 Test Item Value Reference Range Interpretation Comments CO2 (test code = CO2) 31 24-32 [place] [id number] 20:22:00 Test Item Value Reference Range Interpretation Comments Glucose Lvl (test code = Glucose Lvl) 111 70-99 [facility]2015-09-21 20:22:00 Test Item Value Reference Range Interpretation Comments BUN (test code = BUN) 48 7-22 [facility]2015-09-21 20:22:00 Test Item Value Reference Range Interpretation Comments Creatinine Lvl (test code = Creatinine 3.3 0.5-1.4 Lvl) [facility]2015-09-21 20:22:00 Test Item Value Reference Range Interpretation Comments Potassium Lvl (test code = Potassium 4.2 3.5-5.1 Lvl) [facility]2015-09-21 20:22:00 Test Item Value Reference Range Interpretation Comments Chloride Lvl (test code = Chloride Lvl) 103 95-109 [facility] PointeFevayokICHYLJKCRH1480-86-70 20:22:00 Test Item Value Reference Range Interpretation Comments PT (test code = PT) 24.5 s 12.0-14.7 [place] 081635-09-21 20:22:00 Test Item Value Reference Range Interpretation Comments INR (test code = INR) 2.17 0.85-1.17 [facility] P[id number] 20:22:00 Test Item Value Reference Range Interpretation Comments PTT (test code = PTT) 34.9 s 22.9-35.8 [place] 081635-09-21 20:22:00 Test Item Value Reference Range Interpretation Comments MPV (test code = MPV) 8.4 7.4-10.4 [place] 081635-09-21 20:22:00 Test Item Value Reference Range Interpretation Comments Platelet (test code = Platelet) 123 133-450 [facility] PointeSskeemoIGTNSYCSPJ2762-46-74 20:22:00 Test Item Value Reference Range Interpretation Comments Hgb (test code = Hgb) 15.7 14.0-18.0 [facility] PointePntmqvyEAUUFMSLNT6478-70-66 20:22:00 Test Item Value Reference Range Interpretation Comments Hct (test code = Hct) 47.7 42.0-54.0 [facility] PointeOvzqjptDSXKELJGCB9064-05-65 20:22:00 Test Item Value Reference Range Interpretation Comments MCH (test code = MCH) 29.7 pg 27.0-31.0 [facility] PointeFtrhofzDXXRJRSTXO9644-79-29 20:22:00 Test Item Value Reference Range Interpretation Comments RBC (test code = RBC) 5.29 4.70-6.10 [facility] PointeGzuqnimDTVWLJFZEF9150-90-53 20:22:00 Test Item Value Reference Range Interpretation Comments WBC (test code = WBC) 12.1 3.7-10.4 [facility] PointeTwdpsttMOYRUAILYC7968-93-25 20:22:00 Test Item Value Reference Range Interpretation Comments MCV (test code = MCV) 90.1 80.0-94.0 [facility] PointeDaiejdoHIGGDGSRMV9277-07-89 20:22:00 Test Item Value Reference Range Interpretation Comments RDW (test code = RDW) 17.5 11.5-14.5 [facility] PointeNevmariOPNCOYMINA5327-14-21 20:22:00 Test Item Value Reference Range Interpretation Comments MCHC (test code = MCHC) 33.0 32.0-36.0 [facility] PointeCwysiapDETEAVMQFC5679-27-63 20:22:00 Test Item Value Reference Range Interpretation Comments Lymphocytes # (test code = Lymphocytes 2.6 1.0-5.5 #) [facility] PointeYkakeycGMTQPBBLCV5787-55-58 20:22:00 Test Item Value Reference Range Interpretation Comments Basophils # (test code = Basophils #) 0.1 <=0.2 [facility] PointePajoxfaKSQZETCLDC1702-86-85 20:22:00 Test Item Value Reference Range Interpretation Comments Eosinophils # (test code = Eosinophils 0.1 <=0.5 #) [facility] PointeHtcsqojWMPGELLFDJ5028-64-89 20:22:00 Test Item Value Reference Range Interpretation Comments Monocytes # (test code = Monocytes #) 0.9 <=0.8 [facility] PointeXpcgwdrBWXLPLQNEV7839-65-28 20:22:00 Test Item Value Reference Range Interpretation Comments Segs-Bands # (test code = Segs-Bands #) 8.4 1.5-8.1 [facility] PointeDomongzDSORPOGAZG8625-49-84 20:22:00 Test Item Value Reference Range Interpretation Comments Basophils (test code = Basophils) 0.5 <=1.0 [facility] PointeNqmltebPTMPNRYFAA9125-64-18 20:22:00 Test Item Value Reference Range Interpretation Comments Segs (test code = Segs) 69.6 45.0-75.0 [facility] PointeDkfuckjVBJYWURPRI5529-28-48 20:22:00 Test Item Value Reference Range Interpretation Comments Eosinophils (test code = Eosinophils) 1.0 <=4.0 [facility] PointeJatgazeXENLSJVKZA2942-37-07 20:22:00 Test Item Value Reference Range Interpretation Comments Monocytes (test code = Monocytes) 7.1 2.0-12.0 [facility] PointeDwbglsjOHFKZBMUHW8497-79-50 20:22:00 Test Item Value Reference Range Interpretation Comments Lymphocytes (test code = Lymphocytes) 21.8 20.0-40.0 [facility] PointeTiwtmpsGCBMDCKMMJ8360-25-42 20:22:00 Test Item Value Reference Range Interpretation Comments Plt Morph (test code = Normal (04/29/15 3:22 Plt Morph) PM) [facility] PointeHndxbumJOYBZLZYHA3658-60-52 20:22:00 Test Item Value Reference Range Interpretation Comments RBC Morph (test code = Normal (04/29/15 3:22 RBC Morph) PM) [facility] [id number] 17:09:00 Test Item Value Reference Range Interpretation Comments Total CK (test code = Total CK) 68 12-191 [facility] [id number] 17:09:00 Test Item Value Reference Range Interpretation Comments CK MB (test code = CK MB) 2.2 0.5-3.6 [facility] [id number] 17:09:00 Test Item Value Reference Range Interpretation Comments Troponin-I (test code = Troponin-I) 0.02 <=0.40 [facility] [id number] 17:09:00 Test Item Value Reference Range Interpretation Comments Troponin-I (test code = Troponin-I) 0.02 <=0.40 [facility]annCARDIAC [id number] 17:09:00 Test Item Value Reference Range Interpretation Comments Total CK (test code = Total CK) 69 12-191 [facility]leC[facility] [id number] 17:09:00 Test Item Value Reference Range Interpretation Comments CK MB Index (test code = CK MB Index) 3.2 <=2.5 [facility] HospitalannPARATHYROID [id number] 17:09:00 Test Item Value Reference Range Interpretation Comments Ca Ion WB (test code = Ca Ion WB) 1.10 1.05-1.25 [facility] HospitalannPARATHYROID [id number] 17:09:00 Test Item Value Reference Range Interpretation Comments Ca Norm WB (test code = Ca Norm WB) 1.09 1.05-1.25 [facility] HospitalQreenmlYPDAKDRAFF7208-25-94 10:43:00 Test Item Value Reference Range Interpretation Comments Hgb (test code = Hgb) 14.8 14.0-18.0 [facility]HgxijelXPXKLIXZMN3346-63-96 10:43:00 Test Item Value Reference Range Interpretation Comments MCV (test code = MCV) 89.1 80.0-94.0 [facility] HospitalBwiwcnqSALKPRKJUI4609-67-76 10:43:00 Test Item Value Reference Range Interpretation Comments WBC (test code = WBC) 10.3 3.7-10.4 [facility]CpxxelbPQGWWTMNDQ2338-24-19 10:43:00 Test Item Value Reference Range Interpretation Comments Eosinophils # (test code = Eosinophils 0.4 <=0.5 #) [facility]ombXegbsqqMGEBPXGTZL5839-03-72 10:43:00 Test Item Value Reference Range Interpretation Comments Basophils # (test code = Basophils #) 0.0 <=0.2 [facility] DgejcfbQUMGTAUYWR4034-69-27 10:43:00 Test Item Value Reference Range Interpretation Comments Segs-Bands # (test code = Segs-Bands #) 6.7 1.5-8.1 [facility]ombSggbvulNKRJSOIWWO1919-09-65 10:43:00 Test Item Value Reference Range Interpretation Comments Eosinophils (test code = Eosinophils) 3.6 <=4.0 [facility] HospitalXjumaczSOYBWXPWNH1042-84-83 10:43:00 Test Item Value Reference Range Interpretation Comments Basophils (test code = Basophils) 0.5 <=1.0 [facility] HospitalHdtxrjbKLZTKDWOSH3506-02-51 10:43:00 Test Item Value Reference Range Interpretation Comments Lymphocytes # (test code = Lymphocytes 2.2 1.0-5.5 #) [facility] HospitalKpbmqkjWCCNTWDHIZ4355-70-34 10:43:00 Test Item Value Reference Range Interpretation Comments Monocytes # (test code = Monocytes #) 0.9 <=0.8 [facility]ombLajyrjhBATHTCALDR2513-59-72 10:43:00 Test Item Value Reference Range Interpretation Comments Lymphocytes (test code = Lymphocytes) 21.8 20.0-40.0 [facility] HospitalMisbipaWFIBTUDPDD9090-03-16 10:43:00 Test Item Value Reference Range Interpretation Comments Monocytes (test code = Monocytes) 8.6 2.0-12.0 [facility]ombOlbuifbVZFDLKNTOE7961-81-27 10:43:00 Test Item Value Reference Range Interpretation Comments Segs (test code = Segs) 65.5 45.0-75.0 [facility] HospitalGjnhquvIDHOKZ6107-94-35 10:43:00 Test Item Value Reference Range Interpretation Comments CHD Risk (test code = CHD Risk) 1.86 4.00-7.30 [facility] HospitalRtmblikGEWFQN7944-08-83 10:43:00 Test Item Value Reference Range Interpretation Comments VLDL (test code = VLDL) 21 [facility] HospitalXwonjxbNGJUWN6168-40-68 10:43:00 Test Item Value Reference Range Interpretation Comments LDL (Calculated) (test code = LDL 9 (Calculated)) [facility] HospitalHppzeirCLDTOV8402-24-64 10:43:00 Test Item Value Reference Range Interpretation Comments Chol (test code = Chol) 65 [facility] HospitalHfhcxdlTWVCXJ3992-04-15 10:43:00 Test Item Value Reference Range Interpretation Comments Trig (test code = Trig) 107 [facility] HospitalUvbeuapEVDRKK9899-47-79 10:43:00 Test Item Value Reference Range Interpretation Comments HDL (test code = HDL) 35 [facility] AzleURINE [id number] 10:43:00 Test Item Value Reference Range Interpretation Comments U Creatinine (test code = U Creatinine) 149.4 [facility] [id number] 10:43:00 Test Item Value Reference Range Interpretation Comments U Sodium (test code = U Sodium) 48 [facility] [id number] 10:43:00 Test Item Value Reference Range Interpretation Comments Troponin-I (test code = Troponin-I) 0.02 <=0.40 [facility] Dr[facility]CARContentWatchAC [id number] 10:43:00 Test Item Value Reference Range Interpretation Comments Total CK (test code = Total CK) 56 12-191 [facility] [employer] [id number] 10:43:00 Test Item Value Reference Range Interpretation Comments Globulin (test code = Globulin) 2.4 2.0-4.0 [facility] [employer] [id number] 10:43:00 Test Item Value Reference Range Interpretation Comments A/G Ratio (test code = A/G Ratio) 1.2 0.7-1.6 [facility] [employer] [id number] 10:43:00 Test Item Value Reference Range Interpretation Comments Bili Total (test code = Bili Total) 0.7 0.2-1.3 [facility] [employer] [id number] 10:43:00 Test Item Value Reference Range Interpretation Comments Bili Direct (test code = Bili Direct) 0.2 <=0.3 [facility] [employer] [id number] 10:43:00 Test Item Value Reference Range Interpretation Comments Bili Indirect (test code = Bili 0.5 <=1.0 Indirect) [facility] [id number] 10:43:00 Test Item Value Reference Range Interpretation Comments ALT (test code = ALT) 45 <=65 [facility] [employer] [id number] 10:43:00 Test Item Value Reference Range Interpretation Comments AST (test code = AST) 30 <=37 [facility] [employer] [id number] 10:43:00 Test Item Value Reference Range Interpretation Comments Alk Phos (test code = Alk Phos) 70 39-136 [facility] [employer] [id number] 10:43:00 Test Item Value Reference Range Interpretation Comments Albumin Lvl (test code = Albumin Lvl) 2.8 3.5-5.0 [facility] [id number] 10:43:00 Test Item Value Reference Range Interpretation Comments Total Protein (test code = Total 5.2 6.4-8.4 Protein) [facility] [id number] 10:43:00 Test Item Value Reference Range Interpretation Comments Magnesium Lvl (test code = Magnesium 2.0 1.8-2.4 Lvl) [facility]2015-08-20 10:43:00 Test Item Value Reference Range Interpretation Comments eGFR (test code = eGFR) 33 [facility]2015-08-20 10:43:00 Test Item Value Reference Range Interpretation Comments Calcium Lvl (test code = Calcium Lvl) 6.4 8.5-10.5 [facility]2015-08-20 10:43:00 Test Item Value Reference Range Interpretation Comments Glucose Lvl (test code = Glucose Lvl) 99 70-99 [facility]2015-08-20 10:43:00 Test Item Value Reference Range Interpretation Comments Potassium Lvl (test code = Potassium 3.6 3.5-5.1 Lvl) [facility]2015-08-20 10:43:00 Test Item Value Reference Range Interpretation Comments CO2 (test code = CO2) 24 24-32 [facility]2015-08-20 10:43:00 Test Item Value Reference Range Interpretation Comments AGAP (test code = AGAP) 11.6 10.0-20.0 [facility]2015-08-20 10:43:00 Test Item Value Reference Range Interpretation Comments Creatinine Lvl (test code = Creatinine 1.9 0.5-1.4 Lvl) [facility]2015-08-20 10:43:00 Test Item Value Reference Range Interpretation Comments Sodium Lvl (test code = Sodium Lvl) 143 135-145 [facility]2015-08-20 10:43:00 Test Item Value Reference Range Interpretation Comments Chloride Lvl (test code = Chloride Lvl) 111 95-109 [facility]2015-08-20 10:43:00 Test Item Value Reference Range Interpretation Comments BUN (test code = BUN) 39 7-22 [facility]inteXzoqxqwMRRWCYLAYX8188-96-38 10:43:00 Test Item Value Reference Range Interpretation Comments PT (test code = PT) 22.3 s 12.0-14.7 [facility] PointeVndupwhCSBKDLEQFT5359-62-79 10:43:00 Test Item Value Reference Range Interpretation Comments INR (test code = INR) 1.91 0.85-1.17 [facility] PointeRsaneiqFGZVHBPLCN0174-00-09 10:43:00 Test Item Value Reference Range Interpretation Comments PTT (test code = PTT) 39.4 s 22.9-35.8 [facility] PointeWudusymHPLOTFOGPU9358-53-97 10:43:00 Test Item Value Reference Range Interpretation Comments Platelet (test code = Platelet) 119 133-450 [facility] PointeXzpioqpVIGQVRYNCL7590-52-35 10:43:00 Test Item Value Reference Range Interpretation Comments MPV (test code = MPV) 7.9 7.4-10.4 [facility] PointeLbiubbfPCGMTQMBST9205-33-14 10:43:00 Test Item Value Reference Range Interpretation Comments RDW (test code = RDW) 17.8 11.5-14.5 [facility] PointePywnndfWDGTMESVYI4198-54-34 10:43:00 Test Item Value Reference Range Interpretation Comments RBC (test code = RBC) 5.13 4.70-6.10 [facility] PointeCewceqvSDQICMFYIQ3142-93-17 10:43:00 Test Item Value Reference Range Interpretation Comments MCH (test code = MCH) 28.8 pg 27.0-31.0 [facility] PointeIdvyhzqUBOAJHGNLG6946-61-78 10:43:00 Test Item Value Reference Range Interpretation Comments MCHC (test code = MCHC) 32.4 32.0-36.0 [facility] PointeRxbdwfbPFGKJQPYXU6311-65-48 10:43:00 Test Item Value Reference Range Interpretation Comments Hct (test code = Hct) 45.7 42.0-54.0 [facility] AND [id number] 06:41:00 Test Item Value Reference Range Interpretation Comments UA WBC (test code = UA None Seen (03/28/15 1:41 WBC) AM) [facility] AND [id number] 06:41:00 Test Item Value Reference Range Interpretation Comments UA Bacteria (test code = None Seen (03/28/15 UA Bacteria) 1:41 AM) [facility] AND [id number] 06:41:00 Test Item Value Reference Range Interpretation Comments UA Sq Epi (test code = UA Sq Epi) Rare /LPF [facility] AND [id number] 06:41:00 Test Item Value Reference Range Interpretation Comments UA RBC (test code = UA None Seen (03/28/15 1:41 <=2 RBC) AM) [facility] AND [id number] 06:41:00 Test Item Value Reference Range Interpretation Comments UA Urobilinogen (test code = UA 1.0 0.1-1.0 Urobilinogen) [facility] AND [id number] 06:41:00 Test Item Value Reference Range Interpretation Comments UA Nitrite (test code Negative (03/28/15 1:41 = UA Nitrite) AM) [facility] AND [id number] 06:41:00 Test Item Value Reference Range Interpretation Comments UA Leuk Est (test Negative (03/28/15 1:41 code = UA Leuk Est) AM) [facility] AND [id number] 06:41:00 Test Item Value Reference Range Interpretation Comments UA Bili (test code = Negative *NA*(03/28/15 UA Bili) 1:41 AM) [facility] AND [id number] 06:41:00 Test Item Value Reference Range Interpretation Comments UA Blood (test code = Negative (03/28/15 1:41 UA Blood) AM) [facility] AND [id number] 06:41:00 Test Item Value Reference Range Interpretation Comments UA Color (test code = Yellow *NA*(03/28/15 UA Color) 1:41 AM) [facility] AND [id number] 06:41:00 Test Item Value Reference Range Interpretation Comments UA Turbidity (test code = Clear (03/28/15 1:41 UA Turbidity) AM) [facility] AND [id number] 06:41:00 Test Item Value Reference Range Interpretation Comments UA pH (test code = UA pH) 5.5 1 5.0-8.0 [facility] AND [id number] 06:41:00 Test Item Value Reference Range Interpretation Comments UA Protein (test code = UA Negative mg/dL Protein) [facility] AND [id number] 06:41:00 Test Item Value Reference Range Interpretation Comments UA Glucose (test code = UA Negative mg/dL Glucose) [facility] AND [id number] 06:41:00 Test Item Value Reference Range Interpretation Comments UA Ketones (test code = UA Negative mg/dL Ketones) [facility] AND [id number] 06:41:00 Test Item Value Reference Range Interpretation Comments UA Spec Grav (test code = UA Spec 1.010 1 Grav) [facility] [id number] 06:20:00 Test Item Value Reference Range Interpretation Comments CK MB Index (test code = CK MB Index) 3.4 <=2.5 [facility] [id number] 06:20:00 Test Item Value Reference Range Interpretation Comments CK MB (test code = CK MB) 3.1 0.5-3.6 [facility] [id number] 06:20:00 Test Item Value Reference Range Interpretation Comments BNP (test code = BNP) 643 [facility] [id number] 06:20:00 Test Item Value Reference Range Interpretation Comments eGFR (test code = eGFR) 16 [facility] [id number] 06:20:00 Test Item Value Reference Range Interpretation Comments AGAP (test code = AGAP) 14.4 10.0-20.0 [facility] [employer] [id number] 06:20:00 Test Item Value Reference Range Interpretation Comments Albumin Lvl (test code = Albumin Lvl) 4.0 3.5-5.0 [facility] [id number] 06:20:00 Test Item Value Reference Range Interpretation Comments Potassium Lvl (test code = Potassium 5.4 3.5-5.1 Lvl) [facility] [employer] [id number] 06:20:00 Test Item Value Reference Range Interpretation Comments Calcium Lvl (test code = Calcium Lvl) 8.5 8.5-10.5 [facility] [employer] [id number] 06:20:00 Test Item Value Reference Range Interpretation Comments CO2 (test code = CO2) 27 24-32 [facility] [employer] [id number] 06:20:00 Test Item Value Reference Range Interpretation Comments Chloride Lvl (test code = Chloride Lvl) 103 95-109 [facility] [employer] [id number] 06:20:00 Test Item Value Reference Range Interpretation Comments B/C Ratio (test code = B/C Ratio) 17 6-25 [facility] [employer] [id number] 06:20:00 Test Item Value Reference Range Interpretation Comments Sodium Lvl (test code = Sodium Lvl) 139 135-145 [facility]2015-08-20 06:20:00 Test Item Value Reference Range Interpretation Comments Creatinine Lvl (test code = Creatinine 2.7 0.5-1.4 Lvl) [facility]2015-08-20 06:20:00 Test Item Value Reference Range Interpretation Comments Glucose Lvl (test code = Glucose Lvl) 141 70-99 [facility]2015-08-20 06:20:00 Test Item Value Reference Range Interpretation Comments BUN (test code = BUN) 46 7-22 [facility]2015-08-20 06:20:00 Test Item Value Reference Range Interpretation Comments AST (test code = AST) 41 <=37 [place] [id number] 06:20:00 Test Item Value Reference Range Interpretation Comments ALT (test code = ALT) 59 <=65 [facility]2015-08-20 06:20:00 Test Item Value Reference Range Interpretation Comments Total Protein (test code = Total 7.5 6.4-8.4 Protein) [facility]2015-08-20 06:20:00 Test Item Value Reference Range Interpretation Comments Globulin (test code = Globulin) 3.5 2.0-4.0 [facility]2015-08-20 06:20:00 Test Item Value Reference Range Interpretation Comments A/G Ratio (test code = A/G Ratio) 1.1 0.7-1.6 [place] [id number] 06:20:00 Test Item Value Reference Range Interpretation Comments Alk Phos (test code = Alk Phos) 107 39-136 [facility]2015-08-20 06:20:00 Test Item Value Reference Range Interpretation Comments Bili Total (test code = Bili Total) 0.6 0.2-1.3 [facility]inteIdryyxcWLRVPGMUCO8072-66-36 06:20:00 Test Item Value Reference Range Interpretation Comments Lymphocytes # (test code = Lymphocytes 2.6 1.0-5.5 #) [facility] PointeGtvvskiUOTSKIZCKZ3552-67-56 06:20:00 Test Item Value Reference Range Interpretation Comments Monocytes # (test code = Monocytes #) 0.8 <=0.8 [facility] PointeHmhitlkPXZOZDFNIR9163-73-89 06:20:00 Test Item Value Reference Range Interpretation Comments Basophils # (test code = Basophils #) 0.1 <=0.2 [facility] PointeMlrblqtXXDVKHDHHJ8513-35-23 06:20:00 Test Item Value Reference Range Interpretation Comments Eosinophils # (test code = Eosinophils 0.4 <=0.5 #) [facility] PointeOkcxtlmWBICEDFDEM4696-39-07 06:20:00 Test Item Value Reference Range Interpretation Comments Monocytes (test code = Monocytes) 7.7 2.0-12.0 [facility] PointeNlvwwusFHYYIWQIVD7066-19-77 06:20:00 Test Item Value Reference Range Interpretation Comments Lymphocytes (test code = Lymphocytes) 25.1 20.0-40.0 [facility] PointeKmbgaluHIYUMWKKKC6294-65-03 06:20:00 Test Item Value Reference Range Interpretation Comments Eosinophils (test code = Eosinophils) 4.0 <=4.0 [facility] PointePbbrsdkDXDVUBQKZN0872-57-40 06:20:00 Test Item Value Reference Range Interpretation Comments Segs-Bands # (test code = Segs-Bands #) 6.6 1.5-8.1 [facility] PointeJdvctrwROTTGWTKKT1973-70-25 06:20:00 Test Item Value Reference Range Interpretation Comments Basophils (test code = Basophils) 0.5 <=1.0 [facility] PointeJuqwnxjZLOZYNMGDJ2359-35-10 06:20:00 Test Item Value Reference Range Interpretation Comments Segs (test code = Segs) 62.7 45.0-75.0 [facility] PointeIvadwarMEYZMYKFLR6669-61-70 06:20:00 Test Item Value Reference Range Interpretation Comments Hgb (test code = Hgb) 15.8 14.0-18.0 [facility] PointePgisyytCZEUZTDZEH9438-46-57 06:20:00 Test Item Value Reference Range Interpretation Comments RBC (test code = RBC) 5.49 4.70-6.10 [facility] PointeQznslmuOBBJXUDOIB6976-32-36 06:20:00 Test Item Value Reference Range Interpretation Comments WBC (test code = WBC) 10.5 3.7-10.4 [facility] PointeEtfahayIQJAVHQKHG3270-41-30 06:20:00 Test Item Value Reference Range Interpretation Comments RDW (test code = RDW) 18.3 11.5-14.5 [facility] PointeGuqumlyBYJJULMEBV5979-98-05 06:20:00 Test Item Value Reference Range Interpretation Comments MCHC (test code = MCHC) 32.7 32.0-36.0 [facility] 06:20:00 Test Item Value Reference Range Interpretation Comments MCH (test code = MCH) 28.8 pg 27.0-31.0 [facility]FylkaqdOUBPJMXAFT6125-75-10 06:20:00 Test Item Value Reference Range Interpretation Comments MCV (test code = MCV) 88.2 80.0-94.0 [facility] PointeAxmxfhwIVHLADDDLK7345-08-20 06:20:00 Test Item Value Reference Range Interpretation Comments Hct (test code = Hct) 48.5 42.0-54.0 [facility]PpxxjetWNLBYPYHHP5445-58-96 06:20:00 Test Item Value Reference Range Interpretation Comments Platelet (test code = Platelet) 119 133-450 [facility] PointeBkhzdncMXHKKEFBLZ9470-76-55 06:20:00 Test Item Value Reference Range Interpretation Comments MPV (test code = MPV) 8.2 7.4-10.4 [facility] PointeWhnpevyGQCTLOCCOO7536-40-32 06:20:00 Test Item Value Reference Range Interpretation Comments PTT (test code = PTT) 41.1 s 22.9-35.8 [facility]BjwivsiDSTDJRNNZO7953-80-36 06:20:00 Test Item Value Reference Range Interpretation Comments PT (test code = PT) 25.1 s 12.0-14.7 [facility] PointeSfukjvwVGTJLMOYIV2510-70-98 06:20:00 Test Item Value Reference Range Interpretation Comments INR (test code = INR) 2.20 0.85-1.17 [facility]leTHY[facility] [id number] 06:20:00 Test Item Value Reference Range Interpretation Comments TSH (test code = TSH) 3.460 0.360-3.740 [facility]
[2023-07-01] MEDS ORDERED: IPRATROPIUM BROM 0.5MG/2.5ML ONE ×2 (19:56→20:38)
[2023-07-01] MEDS ORDERED: LEVALBUTEROL 1.25 MG/3 ML NEB ONE ×2 (19:56→20:38)
[2023-07-01 20:12] LABS: Absolute Lymphocytes (CBC) 2.2 K/uL (0.7-4.9); Hematocrit 40.6 % (39.6-49.0); Lymphocytes % 12.7 % (15.3-44.8); MCV 91.5 fL (80-100); MPV 7.6 fL (7.6-11.3); Platelets 113 thou/uL (152-406); RBC Red Blood Cell Count 4.44 M/uL (4.33-5.43)
[2023-07-01 20:16] LABS: Protime INR 1.3
[2023-07-01 20:23] LABS: SARS-CoV-2 Antigen Rapid Res Negative (Negative)
[2023-07-01 20:32] LABS: Albumin 3.6 g/dL (3.4-5.0); Bilirubin Direct 0.3 mg/dL (0-0.2); Bilirubin Indirect, Calculated 0.5 mg/dL (0.2-0.8); Bilirubin Total 0.8 mg/dL (0.2-1.0); Magnesium 2.1 mg/dL (1.6-2.4); Potassium 4.6 mEq/L (3.5-5.1); Protein, Total 7.1 g/dL (6.4-8.2); Troponin High Sensitivity 40.6 pg/mL (<58.9)
[2023-07-01] MEDS ORDERED: METHYLPREDNISOLONE 125 MG INJ ONE (20:37)
[2023-07-01] MEDS ORDERED: NA CHLORIDE 0.9% 250 ML ONE (20:38)
[2023-07-01] MEDS ORDERED: ACETAMINOPHEN 325 MG TABLET ONE (20:38)
[2023-07-01] MEDS ORDERED: AZITHROMYCIN 500 MG INJ IVPB ONE (20:38)
[2023-07-01] MEDS ORDERED: FAMOTIDINE 20 MG/2 ML VIAL IV ONE (20:39)
[2023-07-01] MEDS ORDERED: NA CHLORIDE 0.9% 1,000 ML ONE ×2 (20:39→21:45)
--- NOTE | 2023-07-01 20:58 | RAD REPORT ---
EXAM DESCRIPTION: [place] Single View07/01/2023 8:50 pm CLINICAL HISTORY: Shortness of breath COMPARISON: 2021 FINDINGS: Mild left basilar opacity. Right lung appears clear of acute infiltrate The heart is mildly to moderately enlarged. 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
--- NOTE | 2023-07-01 21:10 | ER ---
Nurse's Notes [facility] Name: Torrey Flores Age: 88 yrs Sex: Male : 1935 Arrival Date: 07/01/2023 Time: 19:38 Bed 5 Private MD: Diagnosis: Pneumonia due to other specified bacteria;Dyspnea;Paroxysmal atrial fibrillation;[facility] (current) use of anticoagulants-elquis 2.5 mg daily;Fever, unspecified;Elevated white blood cell count;Unspecified kidney failure-chronic ;Presence of cardiac pacemaker Presentation: 07/01 19:35 Chief complaint: Patient's son or daughter states: father started shaking at around nj1 6:30pm and then started complaining of difficulty breathing. She states he does shake when he feels bad. 19:35 Coronavirus screen: Vaccine status: Patient reports receiving the 2nd dose of the covid nj1 vaccine. Ebola Screen: Patient denies travel to an Ebola-affected area in the 21 days before illness onset. Initial Sepsis Screen: Does the patient meet any 2 criteria? RR > 20 per min. HR > 90 bpm. Yes. Risk Assessment: Do you want to hurt yourself or someone else? Patient reports no desire to harm self or others. Onset of symptoms was July 01, 2023 at 18:30. 19:35 Method Of Arrival: Wheelchair nj1 19:35 Acuity: MARLEN 2 nj1 19:35 Initial Sepsis Screen: Does the patient have a suspected source of infection? Yes: vc1 Productive cough/pneumonia. Historical: - Allergies: 20:05 cefepime; nj1 20:05 Iodine; nj1 20:05 Levaquin; nj1 20:05 SHELLFISH; nj1 - PMHx: 20:05 Atrial fibrillation; Congestive heart failure; defibrillator; Hypertensive disorder; nj1 Hypothyroidism; Lung Cancer; - Immunization history:: Adult Immunizations up to date. - Social history:: Smoking status: Patient denies any tobacco usage or history of. - Family history:: not pertinent. Screenin:14 [facility] ED Fall Risk Assessment (Adult) History of falling in the last 3 months, vc1 including since admission No falls in past 3 months (0 pts) Confusion or Disorientation No (0 pts) Intoxicated or Sedated No (0 pts) Impaired Gait No (0 pts) Mobility Assist Device Used No (0 pt) Altered Elimination No (0 pt) Score/Fall Risk Level 0 - 2 = Low Risk Oriented to surroundings, Maintained a safe environment, Educated pt \T\ family on fall prevention, incl call for assistance when getting out of bed. Abuse screen: Denies threats or abuse. Nutritional screening: No deficits noted. Tuberculosis screening: No symptoms or risk factors identified. Assessment: 20:15 General: Appears distressed, uncomfortable, Behavior is cooperative, anxious. Pain: vc1 Denies pain. Neuro: Level of Consciousness is awake, alert, obeys commands, Oriented to person, place, time, situation, Appropriate for age. Cardiovascular: Rhythm is atrial fibrillation. Respiratory: Reports shortness of breath at rest cough that is labored breathing Airway is patent Respiratory effort is even, labored, Respiratory pattern is symmetrical, tachypnea Breath sounds are diminished Onset: The symptoms/episode began/occurred just prior to arrival, the patient has moderate shortness of breath. GI: No deficits noted. No signs and/or symptoms were reported involving the gastrointestinal system. : No deficits noted. No signs and/or symptoms were reported regarding the genitourinary system. EENT: No deficits noted. No signs and/or symptoms were reported regarding the EENT system. Derm: Skin is intact, Skin is dry, Skin temperature is hot. Musculoskeletal: No deficits noted. No signs and/or symptoms reported regarding the musculoskeletal system. 20:42 Reassessment: Patient states feeling better. Patient states symptoms have improved. vc1 General: Appears in no apparent distress. comfortable, Behavior is calm, cooperative, appropriate for age. 22:00 Reassessment: No changes from previously documented assessment. Patient and/or family vc1 updated on plan of care and expected duration. Pain level reassessed. Patient is alert, oriented x 3, equal unlabored respirations, skin warm/dry/pink. Vital Signs: 19:35 BP 166 / 111; Pulse 125; Resp 30; Temp 98.4(O); Pulse Ox 92% on R/A; Weight 79.38 kg; nj1 Height 5 ft. 11 in. ; 20:42 BP 153 / 68; Pulse 83; Resp 27; Pulse Ox 97% on Nebulizer Mask; vc1 21:21 Temp 99.6(O); jb4 22:00 BP 106 / 67; Pulse 91; Resp 24; Pulse Ox 91% on R/A; vc1 19:35 Body Mass Index 24.41 (79.38 kg, 180.34 cm) nj1 Naseem Coma Score: 19:58 Eye Response: spontaneous(4). Motor Response: obeys commands(6). Verbal Response: noemy oriented(5). Total: 15. ED Course: 19:43 Patient arrived in ED. pf1 19:43 Jasson Zimmerman MD is Attending Physician. noemy 19:45 Inserted saline lock: 20 gauge in left antecubital area, using aseptic technique. Blood vc1 collected. 19:48 First set of blood cultures drawn by me, Second set of blood cultures drawn by me. vc1 20:03 SARS RAPID Sent. wm 20:03 Flu Sent. wm 20:05 Triage completed. nj1 20:06 Arm band placed on. nj1 20:12 Moira Alegria, FELIX is Primary Nurse. vc1 20:14 Patient has correct armband on for positive identification. Bed in low position. Call vc1 light in reach. Client placed on continuous cardiac and pulse oximetry monitoring. NIBP monitoring applied. 20:18 EKG done, by ED staff, reviewed by Jasson Zimmerman MD. wm 20:19 SARS RAPID Sent. wm 20:19 Flu Sent. wm 20:19 Lactate w/ 2H reflex if indic. Sent. wm 20:19 Basic Metabolic Panel Sent. wm 20:19 LFT's Sent. wm 20:19 Magnesium Sent. wm 20:19 NT PRO-BNP Sent. bc6 20:20 Troponin HS Sent. bc6 20:20 Digoxin Sent. bc6 20:51 XRAY Chest (1 view) In Process Unspecified. EDMS 21:07 Miguel Caldwell MD is Hospitalizing Provider. noemy 22:17 Thorax Wo Con In Process Unspecified. EDMS 23:00 No provider procedures requiring assistance completed. Patient admitted, IV remains in vc1 place. 23:00 Provided Education on: oxygen need. vc1 07/02 13:00 Notified primary nurse of blood culture growing gram negative rods. Mindy Gonsalez RN ll1 notified. Administered Medications: 07/01 20:07 CANCELLED (Duplicate Order): rocephin1 grams IV at per protocol once; Given slow IV noemy push per pharmacy instructions 20:39 Drug: Famotidine IVP 20 mg IVP once; dilute with 10 mL 0.9% NaCl; give over 2 minutes vc1 Route: IVP; Site: left antecubital; 22:08 Follow up: Response: No adverse reaction vc1 20:40 Drug: NS 0.9% IV 1000 ml IV at 125 ml/hr continuous Route: IV; Rate: 125 ml/hr; Site: vc1 left antecubital; 20:40 Drug: MethylPrednisoLONE IVP 125 mg IVP once Route: IVP; Site: left antecubital; vc1 22:09 Follow up: Response: No adverse reaction; Marked relief of symptoms vc1 20:40 Drug: Levalbuterol Inhalation 2.5 mg Inhalation once Route: Inhalation; vc1 20:40 Drug: Ipratropium Inhalation Aerosol 0.5 mg Inhalation once Route: Inhalation; vc1 20:40 Drug: Zithromax IVPB 500 mg IVPB once over 1 hrs; mix in 250 mL NS Route: IVPB; Infused vc1 Over: 1 hrs; Site: left antecubital; 22:09 Follow up: IV Status: Completed infusion; IV Intake: 250ml vc1 21:37 Drug: Acetaminophen PO 650 mg PO once Route: PO; jb4 22:07 Follow up: Response: No adverse reaction vc1 21:37 Drug: Potassium PO Effervescent Tablet 25 mEq PO once; dissolve in 4 ounces of water or jb4 juice Route: PO; 22:09 Follow up: Response: No adverse reaction; Marked relief of symptoms vc1 21:46 Drug: Furosemide IVP 20 mg IVP once; give over 2 minutes Route: IVP; Site: left jb4 antecubital; 21:47 Drug: NS 0.9% IV 1000 ml IV at 1 bolus Per protocol; 1000 mL bolus Route: IV; Rate: 1 jb4 bolus; Site: left antecubital; 23:01 Drug: Rocephin IV 2 grams IV at per protocol once; Given slow IV push per pharmarcy vc1 instructions Route: IV; Rate: per protocol; Site: left antecubital; Medication: 20:18 VIS not applicable for this client. vc1 Intake: 22:09 IV: 250ml; Total: 250ml. vc1 Outcome: 21:09 Decision to Hospitalize by Provider. noemy 23:00 Admitted to ER Hold. [facility]. vc1 23:00 Condition: improved 23:00 Instructed on the need for admit, 07/02 21:29 Patient left the ED. km8 Signatures: Dispatcher [employer] EDMS Jasson Zimmerman MD MD cha Bryson, James, RN RN jb4 Tiago Connors, RN RN ll1 Gayla Menendez Moira Alegria, RN RN vc1 Maru Pelletier, RN RN pf1 Nina Goel [facility] Daysi Ramos RN RN nj1 Sophy Collins RN RN km8 Corrections: (The following items were deleted from the chart) 07/01 20: 20:18 EKG done, by ED staff, reviewed by Jasson Zimmerman MD [facility] 20:21 20:19 SARS-COV-2 Antigen Rapid+I.LAB.BRZ drawn and sent. [facility] 20:21 20:19 Influenza Screen (A \T\ B)+BA.LAB.BRZ drawn and sent. [facility] 20:25 20:19 LACTATE+C.LAB.BRZ drawn and sent. [facility] 20:25 20:19 BASIC METABOLIC PANEL+C.LAB.BRZ drawn and sent. [facility] 20:25 20:19 HEPATIC FUNCTION+C.LAB.BRZ drawn and sent. [facility] 20:26 20:19 MAGNESIUM+C.LAB.BRZ drawn and sent. [facility]
--- NOTE | 2023-07-01 21:10 | EDPHYS ---
Physician Documentation [facility] Name: Torrey Flores Age: 88 yrs Sex: Male : 1935 Arrival Date: 07/01/2023 Time: 19:38 Bed 5 Private MD: ED Physician Jasson Zimmerman HPI: 07/01 19:56 This 88 yrs old Male presents to ER via Unassigned with complaints of noemy Breathing Difficulty. 19:56 The patient has shortness of breath at rest, with light activity. Onset: The noemy symptoms/episode began/occurred 1 day(s) ago. Duration: The symptoms are continuous, and are steadily getting worse. The patient's shortness of breath is aggravated by coughing, talking, walking. Associated signs and symptoms: Pertinent positives: non-productive cough, dizziness. Severity of symptoms: At their worst the symptoms were moderate in the emergency department the symptoms are worse markedly. The patient has experienced similar episodes in the past, a few times. Historical: - Allergies: 20:05 cefepime; nj1 20:05 Iodine; nj1 20:05 Levaquin; nj1 20:05 SHELLFISH; nj1 - PMHx: 20:05 Atrial fibrillation; Congestive heart failure; defibrillator; Hypertensive disorder; nj1 Hypothyroidism; Lung Cancer; - Immunization history:: Adult Immunizations up to date. - Social history:: Smoking status: Patient denies any tobacco usage or history of. - Family history:: not pertinent. ROS: 19:58 Constitutional: Negative for fever, chills, and weight loss, Eyes: Negative for injury, noemy pain, redness, and discharge, ENT: Negative for injury, pain, and discharge, Neck: Negative for injury, pain, and swelling, Cardiovascular: Negative for chest pain, palpitations, and edema, Abdomen/GI: Negative for abdominal pain, nausea, vomiting, diarrhea, and constipation, Back: Negative for injury and pain, : Negative for injury, bleeding, discharge, and swelling, MS/Extremity: Negative for injury and deformity, Skin: Negative for injury, rash, and discoloration, Neuro: Negative for headache, weakness, numbness, tingling, and seizure, Psych: Negative for depression, anxiety, suicide ideation, homicidal ideation, and hallucinations, Allergy/Immunology: Negative for hives, rash, and allergies, Endocrine: Negative for neck swelling, polydipsia, polyuria, polyphagia, and marked weight changes, Hematologic/Lymphatic: Negative for swollen nodes, abnormal bleeding, and unusual bruising, 19:58 Respiratory: Positive for cough, "sounds productive", dyspnea on exertion, shortness of breath, at rest. wheezing, expiratory, Exam: 19:58 Constitutional: This is a well developed, well nourished patient who is awake, alert, noemy and in no acute distress. Head/Face: Normocephalic, atraumatic. Eyes: Pupils equal round and reactive to light, extra-ocular motions intact. Lids and lashes normal. Conjunctiva and sclera are non-icteric and not injected. Cornea within normal limits. Periorbital areas with no swelling, redness, or edema. ENT: Nares patent. No nasal discharge, no septal abnormalities noted. Tympanic membranes are normal and external auditory canals are clear. Oropharynx with no redness, swelling, or masses, exudates, or evidence of obstruction, uvula midline. Mucous membranes moist. Neck: Trachea midline, no thyromegaly or masses palpated, and no cervical lymphadenopathy. Supple, full range of motion without nuchal rigidity, or vertebral point tenderness. No Meningismus. Chest/axilla: Normal chest wall appearance and motion. Nontender with no deformity. No lesions are appreciated. Abdomen/GI: Soft, non-tender, with normal bowel sounds. No distension or tympany. No guarding or rebound. No evidence of tenderness throughout. Back: No spinal tenderness. No costovertebral tenderness. Full range of motion. Male : Normal genitalia with no discharge or lesions. Skin: Warm, dry with normal turgor. Normal color with no rashes, no lesions, and no evidence of cellulitis. MS/ Extremity: Pulses equal, no cyanosis. Neurovascular intact. Full, normal range of motion. Neuro: Awake and alert, GCS 15, oriented to person, place, time, and situation. Cranial nerves II-XII grossly intact. Motor strength 5/5 in all extremities. Sensory grossly intact. Cerebellar exam normal. Normal gait. Psych: Awake, alert, with orientation to person, place and time. Behavior, mood, and affect are within normal limits. 19:58 Cardiovascular: Rate: tachycardic, actual rate is 125 bpm, Rhythm: regular, Pulses: Pulses are 4+ in bilateral radial, brachial, femoral, popliteal, posterior tibial and and dorsalis pedis arteries.. Heart sounds: normal, Edema: is not appreciated, JVD: is noted bilaterally, to 3 cm, 19:58 Musculoskeletal/extremity: DVT Exam: No signs of deep vein thrombosis. no pain, no swelling, no tenderness, negative Homans' sign noted on exam, no appreciated bluish discoloration, no erythema, no increased warmth, 21:09 ECG was reviewed by the Attending Physician. noemy Vital Signs: 19:35 BP 166 / 111; Pulse 125; Resp 30; Temp 98.4(O); Pulse Ox 92% on R/A; Weight 79.38 kg; nj1 Height 5 ft. 11 in. ; 20:42 BP 153 / 68; Pulse 83; Resp 27; Pulse Ox 97% on Nebulizer Mask; vc1 21:21 Temp 99.6(O); jb4 22:00 BP 106 / 67; Pulse 91; Resp 24; Pulse Ox 91% on R/A; vc1 19:35 Body Mass Index 24.41 (79.38 kg, 180.34 cm) nj1 [place] Coma Score: 19:58 Eye Response: spontaneous(4). Motor Response: obeys commands(6). Verbal Response: noemy oriented(5). Total: 15. MDM: 19:43 Patient medically screened. noemy 21:05 Differential diagnosis: Anxiety Reaction asthma, Bronchitis CHF exacerbation, Chronic noemy Obstructive Pulmonary Disease obstructed airway, tracheal injury, bronchitis, flu, URI, Myocardial Infarction pneumonia, pulmonary edema, reactive airway disease, Sepsis Unstable Angina. Antibiotic administration: Rocephin and Zithromax given. Differential Diagnosis: Obstructed Airway Bronchitis Influenza Upper Respiratory Infection Sinusitis Pharyngitis Asthma Exacerbation Pneumonia. Immunization status: Pneumococcal vaccine: Influenza vaccine: within last 5 years. Data reviewed: vital signs, nurses notes, EMS record, lab test result(s), EKG, radiologic studies, plain films. Consideration of Admission/Observation Patient was admitted/placed on observation. Escalation of care including admission/observation considered. I considered the following discharge prescriptions or medication management in the emergency department Medications were administered in the Emergency Department. See MAR. Independent interpretation of the following test(s) in the Emergency Department EKG: See my EKG interpretation above. Test considered but Not performed: CT: no ct chest. 07/01 19:46 Order name: Basic Metabolic Panel; Complete Time: 20:34 [facility] 07/01 19:46 Order name: CBC with Diff; Complete Time: 20:34 [facility] 07/01 19:46 Order name: LFT's; Complete Time: 20:34 [facility] 07/01 19:46 Order name: Magnesium; Complete Time: 20:34 [facility] 07/01 19:46 Order name: NT PRO-BNP; Complete Time: 20:34 [facility] 07/01 19:46 Order name: PT-INR; Complete Time: 20:34 [facility] 07/01 19:46 Order name: Troponin HS; Complete Time: 20:34 [facility] 07/01 19:46 Order name: Blood Culture Adult (2) [facility] 07/01 19:46 Order name: Lactate w/ 2H reflex if indic.; Complete Time: 21:04 [facility] 07/01 19:46 Order name: Flu; Complete Time: 20:34 [facility] 07/01 19:46 Order name: SARS RAPID; Complete Time: 20:34 [facility] 07/01 20:13 Order name: Digoxin [facility] 07/01 21:13 Order name: TSH [facility] 07/01 22:08 Order name: NT PRO-BNP EDMS 07/01 22:08 Order name: T4 Free EDMS 07/01 22:08 Order name: Urinalysis w/ reflexes [facility] 07/01 22:08 Order name: Basic Metabolic Panel EDMS 07/01 22:08 Order name: Basic Metabolic Panel ED[facility] 07/01 22:08 Order name: Basic Metabolic Panel ED[facility] 07/01 22:08 Order name: Basic Metabolic Panel ED[facility] 07/01 22:08 Order name: CBC with Automated Diff ED[facility] 07/01 22:08 Order name: CBC with Automated Diff ED[facility] 07/01 22:08 Order name: CBC with Automated Diff ED[facility] 07/01 22:08 Order name: CBC with Automated Diff ED[facility] 07/01 22:08 Order name: Lipid Profile ED[facility] 07/01 22:08 Order name: Lipid Profile [facility] 07/01 22:08 Order name: Magnesium EDMS 07/01 22:08 Order name: Magnesium EDMS 07/01 22:08 Order name: Magnesium EDMS 07/01 22:08 Order name: Magnesium EDMS 07/01 22:08 Order name: Phosphorus EDMS 07/01 22:08 Order name: Phosphorus ED[facility] 07/01 22:08 Order name: Phosphorus [facility] 07/01 22:08 Order name: Phosphorus [facility] 07/01 22:11 Order name: Prolactin [facility] 07/02 00:57 Order name: Lactate Sepsis 2 HR Follow-up [facility] 07/02 09:25 Order name: Manual Differential [facility] 07/02 12:59 Order name: Gram Stain--Aerobic Bottle [facility] 07/02 15:55 Order name: Gram Stain--Aerobic Bottle [facility] 07/01 19:46 Order name: XRAY Chest (1 view); Complete Time: 21:04 [facility] 07/01 22:00 Order name: Thorax Wo Con [facility] 07/01 19:46 Order name: EKG; Complete Time: 19:47 [facility] 07/01 22:08 Order name: CONS Physician Consult [facility] 07/01 19:46 Order name: Cardiac monitoring; Complete Time: 20:12 [facility] 07/01 19:46 Order name: EKG - Nurse/Tech; Complete Time: 20:12 [facility] 07/01 19:46 Order name: IV Saline Lock; Complete Time: 20:12 [facility] 07/01 19:46 Order name: Labs collected and sent; Complete Time: 20:12 [facility] 07/01 19:46 Order name: O2 Per Protocol; Complete Time: 20:12 [facility] 07/01 19:46 Order name: O2 Sat Monitoring; Complete Time: 20:12 [facility] EC:09 Rate is 89 beats/min. Rhythm is regular. QRS [place] is Normal. MI interval is normal. QRS noemy interval is normal. QT interval is normal. No Q waves. T waves are Normal. No ST changes noted. Clinical impression: Abnormal EKG without significant change and No evidence of ischemia. Interpreted by me. Reviewed by me. Administered Medications: 20:07 CANCELLED (Duplicate Order): rocephin1 grams IV at per protocol once; Given slow IV noemy push per pharmacy instructions 20:39 Drug: Famotidine IVP 20 mg IVP once; dilute with 10 mL 0.9% NaCl; give over 2 minutes vc1 Route: IVP; Site: left antecubital; 22:08 Follow up: Response: No adverse reaction vc1 20:40 Drug: NS 0.9% IV 1000 ml IV at 125 ml/hr continuous Route: IV; Rate: 125 ml/hr; Site: vc1 left antecubital; 20:40 Drug: MethylPrednisoLONE IVP 125 mg IVP once Route: IVP; Site: left antecubital; vc1 22:09 Follow up: Response: No adverse reaction; Marked relief of symptoms vc1 20:40 Drug: Levalbuterol Inhalation 2.5 mg Inhalation once Route: Inhalation; vc1 20:40 Drug: Ipratropium Inhalation Aerosol 0.5 mg Inhalation once Route: Inhalation; vc1 20:40 Drug: Zithromax IVPB 500 mg IVPB once over 1 hrs; mix in 250 mL NS Route: IVPB; Infused vc1 Over: 1 hrs; Site: left antecubital; 22:09 Follow up: IV Status: Completed infusion; IV Intake: 250ml vc1 21:37 Drug: Acetaminophen PO 650 mg PO once Route: PO; jb4 22:07 Follow up: Response: No adverse reaction vc1 21:37 Drug: Potassium PO Effervescent Tablet 25 mEq PO once; dissolve in 4 ounces of water or jb4 juice Route: PO; 22:09 Follow up: Response: No adverse reaction; Marked relief of symptoms vc1 21:46 Drug: Furosemide IVP 20 mg IVP once; give over 2 minutes Route: IVP; Site: left jb4 antecubital; 21:47 Drug: NS 0.9% IV 1000 ml IV at 1 bolus Per protocol; 1000 mL bolus Route: IV; Rate: 1 jb4 bolus; Site: left antecubital; 23:01 Drug: Rocephin IV 2 grams IV at per protocol once; Given slow IV push per pharmarcy vc1 instructions Route: IV; Rate: per protocol; Site: left antecubital; Disposition Summary: 07/01/23 21:09 Hospitalization Ordered Notes: Hospitalization Status: Inpatient Admission noemy Provider: Miguel Caldwell noemy Condition: Fair noemy Problem: new noemy Symptoms: have improved noemy Bed/Room Type: Standard noemy Location: Telemetry/MedSurg (observation)(07/02/23 19:16) rv1 [facility](07/02/23 19:16) rv1 Diagnosis - Pneumonia due to other specified bacteria noemy - Dyspnea noemy - Paroxysmal atrial fibrillation 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 - elquis 2.5 mg daily noemy - Fever, unspecified noemy - Elevated white blood cell count noemy - Unspecified kidney failure - chronic noemy - Presence of cardiac pacemaker noemy Forms: - Medication Reconciliation Form noemy - SBAR form noemy - Leadership Thank You Letter noemy Signatures: Dispatcher [employer] Jasson Bailey MD MD cha Garcia, Cindy, RN RN Roberto Robles RN RN jb4 Moira Alegria RN RN vc1 Ivone Torres rv1 Daysi Ramos RN RN nj1 Corrections: (The following items were deleted from the chart) 20:07 19:46 Rocephin IV 1 grams IV at per protocol once; Given slow IV push per pharmacy noemy instructions ordered. [facility] 22:18 21:09 Telemetry/MedSurg (Inpatient) noemy 22:18 21:09 noemy 07/02 19:16 07/01 22:18 [facility] ER HOLD rv1 07/02 19:16 07/01 22:18 ERHOLD- rv1
[2023-07-01] MEDS ORDERED: FUROSEMIDE 20 MG/ 2ML VIAL ONE (21:45)
[2023-07-01] MEDS ORDERED: POTASSIUM 25 MEQ EFFERV TAB ONE (21:45)
[2023-07-01] MEDS ORDERED: NA CHLORIDE 0.9% 500 ML IV ONE (21:53)
[2023-07-01] MEDS ORDERED: ACETAMINOPHEN 500 MG TAB PO PRN (22:02)
--- NOTE | 2023-07-01 22:15 | P.HP ---
Certification for Inpatient Patient admitted to: Inpatient With expected LOS: <2 Midnights Patient will require the following post-hospital care: None Practitioner: I am a practitioner with admitting privileges, knowledge of patient current condition, hospital course, and medical plan of care. Services: Services provided to patient in accordance with Admission requirements found in Title 42 Section 412.3 of the Code of Federal Regulations <[email or web address] - Last Filed: 07/02/23 02:19> Patient History Date of Service: 07/02/23 Reason for admission: Shortness of breath, Pneumonia History of Present Illness: Mr. Flores is a 88-year-old male with a history of congestive heart failure, hypertension, hypothyroidism, history of lung cancer presented to ER via unassigned with complaints of breathing difficulty. Patient reports shortness of breath at rest with light activity on symptom started today, the symptoms are continuous and steadily getting worse. Patient's shortness of breath is aggravated by coughing, talking, walking. Associated symptoms of fever, nonproductive cough, and dizziness. The patient has experienced similar symptoms in the past few times. Patient denies chest pain, chest discomfort or palpitation. Patient denies abdominal pain nausea vomiting. ED course Patient is alert and oriented x3, daughter at bedside and giving history. Blood pressure 166/111, pulse of 125, respiration 30, temperature 98.4, pulse ox 92% on room air. Initial lab reports significant for leukocytosis WBC 17.6, lactic acid 2.8, BNP 2667, elevated BUN 29, creatinine 1.39, low GFR 48. Chest x-ray showing mild left basilar opacity may indicate a mild infiltrate. CT chest thorax shows small bilateral pleural effusions. Admitting the patient with a diagnosis of pneumonia, dyspnea, atrial fibrillation, current long-term use of anticoagulant, fever, leukocytosis, unspecified kidney failure. Home medications list reviewed: Yes - Past Medical/Surgical History Diabetic: No -: Hypertension -: Systolic CHF -: Atrial fibrillation -: Chronic anticoagulation -: Hypothyroidism -: Recurrent gout -: AICD placement -: Left hand fracture complicated with infected plate - Social History Alcohol use: No CD- Drugs: No Caffeine use: No <Siri Acosta - Last Filed: 07/02/23 02:19> Date of Service: 07/02/23 <Miguel Caldwell - Last Filed: 07/02/23 16:07> Allergies cefepime Allergy (Verified 01/30/22 15:38) Anaphylaxis iodine Allergy (Verified 01/30/22 15:38) Anaphylaxis levofloxacin [From Levaquin] Allergy (Verified 01/30/22 15:38) Anaphylaxis Home Medications: Apixaban [Eliquis] 2.5 mg PO DAILY 01/30/22 Clonidine HCl [Catapres*] 0.2 mg PO BID 01/30/22 Digoxin [Lanoxin] 0.125 mg PO DAILY 01/30/22 Febuxostat [Uloric] 40 mg PO DAILY 01/30/22 Furosemide [Lasix] 40 mg PO DAILY 01/30/22 Isosorbide Mononitrate [Isosorbide Mononitrate ER] 30 mg PO DAILY 01/30/22 Levothyroxine Sodium [Levothyroxine] 150 mcg PO DAILY 01/30/22 Potassium Chloride [Klor-Con 10] 10 meq PO DAILY 01/30/22 Valsartan [Diovan] 80 mg PO DAILY 01/30/22 carvediloL [Carvedilol] 6.25 mg PO DAILY 01/30/22 Review of Systems 10-point ROS is otherwise unremarkable <Siri Acosta - Last Filed: 07/02/23 02:19> Physical Examination - Physical Exam General: Alert, Oriented x3 HEENT: Atraumatic, Normocephalic, PERRLA Neck: Supple, 2+ carotid pulse no bruit Respiratory: Clear to auscultation bilaterally, Normal air movement Cardiovascular: No edema, Normal pulses, Regular rate/rhythm Capillary refill: <2 Seconds Gastrointestinal: Normal bowel sounds, Soft and benign Musculoskeletal: No clubbing, No swelling Integumentary: Other (Small wound on the right LE, with 8 evelia , wound dry and intact, no signs of infection) - Studies Laboratory Data (last 24 hrs) 07/01/23 07/01/23 07/01/23 19:58 19:58 19:58 WBC 17.60 H Hgb 13.0 L Hct 40.6 Plt Count 113 L PT 14.3 H INR 1.30 Sodium 140 Potassium 4.6 BUN 29 H Creatinine 1.39 H Glucose 190 H Magnesium 2.1 Total Bilirubin 0.8 AST 16 ALT 19 Alkaline Phosphatase 78 Microbiology Data (last 24 hrs): 07/01/23 19:57 Nasopharnyx Influenza Type A Antigen Screen - Final 07/01/23 19:57 Nasopharnyx Influenza Type B Antigen Screen - Final <Siri Acosta - Last Filed: 07/02/23 02:19> - Studies Laboratory Data (last 24 hrs) 07/01/23 07/01/23 07/01/23 19:58 19:58 19:58 WBC 17.60 H Hgb 13.0 L Hct 40.6 Plt Count 113 L PT 14.3 H INR 1.30 Sodium 140 Potassium 4.6 BUN 29 H Creatinine 1.39 H Glucose 190 H Magnesium 2.1 Total Bilirubin 0.8 AST 16 ALT 19 Alkaline Phosphatase 78 Microbiology Data (last 24 hrs): 07/01/23 19:58 Blood - Blood Blood Culture Gram Stain - Final 07/01/23 19:57 Nasopharnyx Influenza Type A Antigen Screen - Final 07/01/23 19:57 Nasopharnyx Influenza Type B Antigen Screen - Final <Miguel Caldwell - Last Filed: 07/02/23 16:07> Assessment and Plan - Problems (Diagnosis) (1) Pneumonia Current Visit: Yes Status: Acute Qualifiers: Pneumonia type: due to unspecified organism Laterality: left (2) Dyspnea Current Visit: Yes Status: Acute Qualifiers: Dyspnea type: dyspnea on exertion Qualified Code(s): R06.09 - Other forms of dyspnea (3) Afib Current Visit: Yes Status: Chronic Qualifiers: Atrial fibrillation type: paroxysmal Qualified Code(s): I48.0 - Paroxysmal atrial fibrillation (4) 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 Current Visit: Yes Status: Chronic (5) Fever Current Visit: Yes Status: Acute Qualifiers: Fever type: unspecified Qualified Code(s): R50.9 - Fever, unspecified (6) Leucocytosis Current Visit: Yes Status: Acute Qualifiers: Leukocytosis type: unspecified Qualified Code(s): D72.829 - Elevated white blood cell count, unspecified (7) CKD (chronic kidney disease) stage 3, GFR 30-59 ml/min Current Visit: Yes Status: Chronic Qualifiers: Chronic kidney disease stage 3 subtype: stage 3a (GFR 45-59) Qualified Code(s): N18.31 - Chronic kidney disease, stage 3a (8) Sepsis Current Visit: Yes Status: Acute Qualifiers: Sepsis type: sepsis due to unspecified organism Sepsis acute organ dysfunction status: with acute organ dysfunction Severe sepsis acute organ dysfunction type: acute renal failure Acute renal failure type: unspecified Severe sepsis shock status: without septic shock Qualified Code(s): A41.9 - Sepsis, unspecified organism; R65.20 - Severe sepsis without septic shock; N17.9 - Acute kidney failure, unspecified - Plan - Problems (Diagnosis) (1) Pneumonia (2) Dyspnea (3) Fever (4) Leucocytosis (5) sepsis * Patient came in with complaints of breathing difficulty. Patient reports shortness of breath at rest with light activity on symptom started today, the symptoms are continuous and steadily getting worse. Patient's shortness of breath is aggravated by coughing, talking, walking. Associated symptoms of fever, nonproductive cough, and dizziness. Patient has history of lung cancer and 2010 with right upper lobectomy. * Blood pressure 166/111, pulse of 125, respiration 30, temperature 98.4, pulse ox 92% on room air. Initial lab reports significant for leukocytosis WBC 17.6, lactic acid 2.8, BNP 2667 * Likely secondary to pneumonia Patient meets SIRS criteria based on temperature > 100.9 F , HR > 90 bpm, RR > 20 breaths/min = WBC > 12,000 and the suspected source is lungs. Plan: - Sepsis order set was initiated - Initial Lactate was 2.7, trend - Blood cultures drawn before antibiotics were given - Broad spectrum antibiotics started: Ceftriaxone and Zithromax - 30 mL/kg of IV fluids was not administered given SBP > 90, MAP > 65, lactic acid < 4 - Admitting the patient , O2 via nasal cannula as needed, bronchodilators as needed, antibiotics, pulmonology consult to Dr. Urbina -Monitor the patient closely (6) Afib (7) 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 Current Visit: Yes Status: Chronic * Chronic controlled rate and patient is anticoagulated on Eliquis 2.5 p.o. twice daily * Patient denies any palpitation or chest pain * Will continue the current medication (8) CKD (chronic kidney disease) stage 3, GFR 30-59 ml/min * Acute, elevated BUN 29, creatinine 1.39, low GFR 48. * Nephrology consult, IV hydration, monitor lab CODE STATUS Full code DVT prophylaxis Eliquis Diet Diabetic Discharge Plan: Home Plan to discharge in: 48 Hours - Advance Directives Does patient have a Living Will: No Does patient have a Durable POA for Healthcare: No - Code Status/Comfort Care Code Status Assessed: Yes (DNR) Code Status: Do Not Attempt Resuscitat Physician Review: Patient Assessed, Agree with Above Assessment and Plan Critical Care: No Time Spent Managing Pts Care (In Minutes): 55 (minutes) <Siri Acosta - Last Filed: 07/02/23 02:19>
--- NOTE | 2023-07-01 22:42 | RAD REPORT ---
EXAM DESCRIPTION: CT - Thorax Wo Con - 07/01/2023 10:15 pm CLINICAL HISTORY: sob COMPARISON: July 01, 2023 x-ray TECHNIQUE: Computed axial tomography of the chest was obtained. Contrast was not requested. All CT scans are performed using dose optimization technique as appropriate and may include automated exposure control or mA/KV adjustment according to patient size. FINDINGS: Small bilateral pleural effusions. Right hilum is prominent. This probably represents a combination of pulmonary artery, small lymph nod es and post treatment changes. Evaluation is limited secondary to lack of IV contrast administration . A few areas of subsegmental atelectasis left lower lobe Coronary arterial calcifications. No mediastinal lymphadenopathy. No pericardial effusion Small amount of ascites upper abdomen IMPRESSION: Small bilateral pleural effusions
[2023-07-01] MEDS ORDERED: CEFTRIAXONE 1000 MG/VIAL ONE (22:54)
[2023-07-01] MEDS ORDERED: NA CHLORIDE 0.9% 1,000 ML IV SCH (23:00)
[2023-07-01 23:46] VITALS: BMI 24.4
[2023-07-02 00:53] LABS: Specific Gravity 1.009 (1.005-1.030); Urine Bilirubin NEGATIVE (Negative); Urine Blood Negative (Negative); Urine Clarity Clear (Clear); Urine Color Colorless (Yellow); Urine Glucose NEGATIVE (Negative); Urine Protein NEGATIVE (Negative); Urine Urobilinogen Normal (Normal)
[2023-07-02] MEDS: IPRATROPIUM BROM 0.5MG/2.5ML NEB SCH ×5 (01:20→20:00)
[2023-07-02] MEDS ORDERED: IPRATROPIUM BROM 0.5MG/2.5ML ONE (01:30)
[2023-07-02] MEDS ORDERED: ALBUTEROL 2.5 MG/3 ML NEB SOL NEB PRN (02:00)
[2023-07-02] MEDS ORDERED: NA CHLORIDE 0.9% 1,000 ML ONE (02:03)
[2023-07-02 06:56] LABS: Hematocrit 39.6 % (39.6-49.0); Lymphocytes % 5.7 % (15.3-44.8); MCV 91.4 fL (80-100); Platelets 73 thou/uL (152-406); RBC Red Blood Cell Count 4.33 M/uL (4.33-5.43)
[2023-07-02 07:06] LABS: Phosphorus 3.3 mg/dL (2.5-4.9); Potassium 4.2 mEq/L (3.5-5.1)
[2023-07-02] MEDS ORDERED: AZITHROMYCIN IV 500 MG in NA CHLORIDE 0.9% 250 ML IVPB SCH ×2 (09:00→21:00)
[2023-07-02] MEDS: FAMOTIDINE 20 MG/2 ML VIAL IV SCH (09:00)
[2023-07-02] MEDS: CEFTRIAXONE 1,000 MG in NA CHLORIDE 0.9% 50 ML IVPB SCH (09:00)
[2023-07-02] MEDS: APIXABAN 2.5 MG TABLET PO SCH (09:00)
[2023-07-02 09:25] LABS: Blood Morphology Comment NOT SEEN (NOT SEEN); Platelet Estimate DECR; Toxic Granulation 1+
[2023-07-02] MEDS ORDERED: FAMOTIDINE 20 MG/2 ML VIAL IV ONE (09:50)
[2023-07-02] MEDS ORDERED: CEFTRIAXONE 1000 MG/VIAL ONE (09:50)
[2023-07-02] MEDS ORDERED: NA CHLORIDE 0.9% 50 ML ONE (09:50)
--- NOTE | 2023-07-02 11:07 | P.CNS ---
Date of Consult: 07/02/23 Reason for Consult: Rigors possible pneumonia Chief Complaint: Shortness of breath, Pneumonia History of Present Illness: Patient is a 88 years of age mated with sudden onset of shaking spells currently he had traveled to [place] recently denies any cough phlegm complaining of shortness of breath right upper lobe lobectomy in 2009 no prior history of COPD or coronary artery disease patient does have a defibrillator no stents denies any chest pain Allergies cefepime Allergy (Verified 01/30/22 15:38) Anaphylaxis iodine Allergy (Verified 01/30/22 15:38) Anaphylaxis levofloxacin [From Levaquin] Allergy (Verified 01/30/22 15:38) Anaphylaxis Home Medications: Apixaban [Eliquis] 2.5 mg PO DAILY 01/30/22 Clonidine HCl [Catapres*] 0.2 mg PO BID 01/30/22 Digoxin [Lanoxin] 0.125 mg PO DAILY 01/30/22 Febuxostat [Uloric] 40 mg PO DAILY 01/30/22 Furosemide [Lasix] 40 mg PO DAILY 01/30/22 Isosorbide Mononitrate [Isosorbide Mononitrate ER] 30 mg PO DAILY 01/30/22 Levothyroxine Sodium [Levothyroxine] 150 mcg PO DAILY 01/30/22 Potassium Chloride [Klor-Con 10] 10 meq PO DAILY 01/30/22 Valsartan [Diovan] 80 mg PO DAILY 01/30/22 carvediloL [Carvedilol] 6.25 mg PO DAILY 01/30/22 - Past Medical/Surgical History Diabetic: No -: Hypertension -: Systolic CHF -: Atrial fibrillation -: Chronic anticoagulation -: Hypothyroidism -: Recurrent gout -: Right-sided lung cancer -: AICD placement -: Left hand fracture complicated with infected plate -: Right upper lobe lobectomy - Social History Alcohol use: No CD- Drugs: No Caffeine use: No Place of Residence: Home Review of Systems 10-point ROS is otherwise unremarkable Physical Examination Temp Pulse Resp BP Pulse Ox 97.4 F 73 16 149/80 H 97 07/02/23 04:00 07/02/23 08:00 07/02/23 08:00 07/02/23 08:00 07/02/23 08:00 General: Alert, In no apparent distress, Oriented x3 HEENT: Atraumatic Neck: Supple Respiratory: Clear to auscultation bilaterally Cardiovascular: No edema, Regular rate/rhythm, Normal S1 S2 Gastrointestinal: Normal bowel sounds, Soft and benign Musculoskeletal: No clubbing, No swelling Laboratory Data (last 24 hrs) 07/01/23 07/01/23 07/01/23 19:58 19:58 19:58 WBC 17.60 H Hgb 13.0 L Hct 40.6 Plt Count 113 L PT 14.3 H INR 1.30 Sodium 140 Potassium 4.6 BUN 29 H Creatinine 1.39 H Glucose 190 H Magnesium 2.1 Total Bilirubin 0.8 AST 16 ALT 19 Alkaline Phosphatase 78 - Problems (1) Rigors Current Visit: Yes Status: Acute Plan: Patient is 88 years of age, prior history of lung cancer that was treated with lobectomy in 2009 admitted with sudden onset of shaking says spells most likely rigors patient is white his white count is elevated there is no evidence of any significant pneumonia await for blood culture urinalysis is also negative patie nt has chronic renal insufficiency CAT scan chest x-rays reviewed no prior history of obstructive airways disease patient's vital signs are stable continue with present antibiotic therapy
[2023-07-02] MEDS: FUROSEMIDE 20 MG/ 2ML VIAL IV SCH ×2 (15:21→21:00)
--- NOTE | 2023-07-02 15:27 | P.CNS ---
Date of Consult: 07/02/23 Reason for Consult: Renal insufficiency Requesting Physician: Siri Acosta Chief Complaint: Shortness of breath, Pneumonia History of Present Illness: Pt is a elderly 88-year-old male with a history of congestive presuma arpit systolic heart failure 2nd to ischemic cardiomyopathy as he reports hx of CAD/PCI and AICD. He follows with Dr. Genao in [place] and is on a HF regimen including Coreg, Entresto, Digoxin and Furosemide. He has chronic HTN and appears to take Clonidine among the other meds listed above. Pt reports more acute onset of shortness of breath and some chills/tremors yesterday. Pt denies chest pain. He is not hypoxic currently. He does not take Lasix daily. He reports dose was prev lowered. He denies weight gain or LE edema. Pt is being admitted for possible PNA given leukocytosis and symptoms reported. Allergies cefepime Allergy (Verified 01/30/22 15:38) Anaphylaxis iodine Allergy (Verified 01/30/22 15:38) Anaphylaxis levofloxacin [From Levaquin] Allergy (Verified 01/30/22 15:38) Anaphylaxis Home Medications: Apixaban [Eliquis] 2.5 mg PO DAILY 01/30/22 Clonidine HCl [Catapres*] 0.2 mg PO BID 01/30/22 Digoxin [Lanoxin] 0.125 mg PO DAILY 01/30/22 Febuxostat [Uloric] 40 mg PO DAILY 01/30/22 Furosemide [Lasix] 40 mg PO DAILY 01/30/22 Isosorbide Mononitrate [Isosorbide Mononitrate ER] 30 mg PO DAILY 01/30/22 Levothyroxine Sodium [Levothyroxine] 150 mcg PO DAILY 01/30/22 Potassium Chloride [Klor-Con 10] 10 meq PO DAILY 01/30/22 Valsartan [Diovan] 80 mg PO DAILY 01/30/22 carvediloL [Carvedilol] 6.25 mg PO DAILY 01/30/22 - Past Medical/Surgical History Diabetic: No -: Hypertension -: Systolic CHF -: Atrial fibrillation -: Chronic anticoagulation -: Hypothyroidism -: Recurrent gout -: Right-sided lung cancer -: AICD placement -: Left hand fracture complicated with infected plate -: Right upper lobe lobectomy - Social History Alcohol use: No CD- Drugs: No Caffeine use: No Place of Residence: Home Review of Systems General: As per HPI Eyes: Unremarkable ENT: Unremarkable Respiratory: Cough, Shortness of Breath, As per HPI Cardiovascular: As per HPI Gastrointestinal: Unremarkable Genitourinary: Unremarkable Musculoskeletal: Unremarkable Integumentary: Unremarkable Neurological: Unremarkable Physical Examination Temp Pulse Resp BP Pulse Ox 97.4 F 73 16 149/80 H 97 07/02/23 04:00 07/02/23 08:00 07/02/23 08:00 07/02/23 08:00 07/02/23 08:00 General: Alert, In no apparent distress, Cooperative HEENT: Atraumatic, Normocephalic Neck: Supple, Other (JVD difficult to appreciate) Respiratory: Normal air movement, Other (Dimished mildly at bases, no rhonchi or wheezing) Cardiovascular: Regular rate/rhythm, Other (Upper chest AICD), Systolic murmur Gastrointestinal: Soft and benign, Non-distended, No tenderness, No guarding Musculoskeletal: No swelling, No contractures Integumentary: No rashes, No tenderness/swelling Neurological: Normal speech, Normal tone, Normal affect Laboratory Data (last 24 hrs) 07/01/23 07/01/23 07/01/23 19:58 19:58 19:58 WBC 17.60 H Hgb 13.0 L Hct 40.6 Plt Count 113 L PT 14.3 H INR 1.30 Sodium 140 Potassium 4.6 BUN 29 H Creatinine 1.39 H Glucose 190 H Magnesium 2.1 Total Bilirubin 0.8 AST 16 ALT 19 Alkaline Phosphatase 78 Conclusions/Impression: A/P) 1. Abnormal results of kidney function studies, likely representing some underlying CKD Stage III unspecified, eGFR calculators are not well validated in the elderly 2. Cr level on admission is lower than levels seen in this EMR from last year in summer. 3. UA on admission unremarkable 4. Acute resp insufficiency 2nd to likely acute on chronic systolic CHF +/- PNA, unspecified organism. Abx per primary team. 5. Ischemic cardiomyopathy -BNP > 5000, cont Entresto. D/c NS IVF ordered. Will place on IV lasix and will titrate per response. Pt was not taking Lasix daily at home, may consider addition of Spironolactone to his regimen. Alfonso Davis MD, [facility]
--- NOTE | 2023-07-02 16:07 | P.PN ---
Subjective Date of Service: 07/02/23 Chief Complaint: Shortness of breath, Pneumonia Subjective: No new changes, Improving Physical Examination - Vital Signs Temperature: 97.4 F Blood Pressure: 149/80 Pulse: 73 Respirations: 16 Pulse Ox (%): 97 - Physical Exam General: Alert HEENT: Atraumatic Neck: Supple Respiratory: Normal air movement Cardiovascular: Regular rate/rhythm, Normal S1 S2 Gastrointestinal: Soft and benign Musculoskeletal: No swelling Neurological: Normal speech - Studies Laboratory Data (last 24 hrs) 07/01/23 07/01/23 07/01/23 19:58 19:58 19:58 WBC 17.60 H Hgb 13.0 L Hct 40.6 Plt Count 113 L PT 14.3 H INR 1.30 Sodium 140 Potassium 4.6 BUN 29 H Creatinine 1.39 H Glucose 190 H Magnesium 2.1 Total Bilirubin 0.8 AST 16 ALT 19 Alkaline Phosphatase 78 Microbiology Data (last 24 hrs): 07/01/23 19:58 Blood - Blood Blood Culture Gram Stain - Final 07/01/23 19:57 Nasopharnyx Influenza Type A Antigen Screen - Final 07/01/23 19:57 Nasopharnyx Influenza Type B Antigen Screen - Final Assessment And Plan - Plan Plan - Problems (Diagnosis) (1) Pneumonia (2) Dyspnea (3) Fever (4) Leucocytosis (5) sepsis * Patient came in with complaints of breathing difficulty. Patient reports shortness of breath at rest with light activity on symptom started today, the symptoms are continuous and steadily getting worse. Patient's shortness of breath is aggravated by coughing, talking, walking. Associated symptoms of fever, nonproductive cough, and dizziness. Patient has history of lung cancer and 2010 with right upper lobectomy. * Blood pressure 166/111, pulse of 125, respiration 30, temperature 98.4, pulse ox 92% on room air. Initial lab reports significant for leukocytosis WBC 17.6, lactic acid 2.8, BNP 2667 * Likely secondary to pneumonia Patient meets SIRS criteria based on temperature > 100.9 F , HR > 90 bpm, RR > 20 breaths/min = WBC > 12,000 and the suspected source is lungs. Plan: - Sepsis order set was initiated - Initial Lactate was 2.7, trend - Blood cultures drawn before antibiotics were given - Broad spectrum antibiotics started: Ceftriaxone and Zithromax - 30 mL/kg of IV fluids was not administered given SBP > 90, MAP > 65, lactic acid < 4 - Admitting the patient , O2 via nasal cannula as needed, bronchodilators as needed, antibiotics, pulmonology consult to Dr. 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 twice daily * Patient denies any palpitation or chest pain * Will continue the current medication (8) CKD (chronic kidney disease) stage 3, GFR 30-59 ml/min * Acute, elevated BUN 29, creatinine 1.39, low GFR 48. * Nephrology consult, IV hydration, monitor lab CODE STATUS Full code DVT prophylaxis Eliquis Diet Diabetic Discharge Plan: Home Plan to discharge in: 48 Hours - Advance Directives Does patient have a Living Will: No Does patient have a Durable POA for Healthcare: No - Code Status/Comfort Care Code Status Assessed: Yes (DNR) Code Status: Do Not Attempt Resuscitat Physician Review: Patient Assessed, Agree with Above Assessment and Plan Critical Care: No Time Spent Managing Pts Care (In Minutes): 55 (minutes) Physician Review: Patient Assessed, Agree with Above Assessment and Plan
[2023-07-02] MEDS: SACUBITRIL/VALSARTAN 24/26 MG TAB PO SCH (21:00)
[2023-07-03] MEDS: IPRATROPIUM BROM 0.5MG/2.5ML NEB SCH ×4 (01:52→20:00)
[2023-07-03 04:17] LABS: Absolute Lymphocytes (CBC) 1.6 K/uL (0.7-4.9); Hematocrit 36.9 % (39.6-49.0); Lymphocytes % 11.6 % (15.3-44.8); MCV 90.8 fL (80-100); MPV 8.3 fL (7.6-11.3); Platelets 97 thou/uL (152-406); RBC Red Blood Cell Count 4.07 M/uL (4.33-5.43)
[2023-07-03 04:31] LABS: Magnesium 2.1 mg/dL (1.6-2.4); Phosphorus 2.7 mg/dL (2.5-4.9); Potassium 4.3 mEq/L (3.5-5.1)
--- NOTE | 2023-07-03 08:08 | RAD REPORT ---
EXAM DESCRIPTION: RAD - Chest Single View - 07/03/2023 6:46 am CLINICAL HISTORY: poss penumonia Chest pain. COMPARISON: Chest Single View dated 07/01/2023; Chest Pa And Lat (2 Views) dated 07/09/2022; Chest Si ngle View dated 01/30/2022; CHEST SINGLE VIEW dated 12/12/2009 FINDINGS: Portable technique limits examination quality. The lungs appear underinflated but grossly clear. The heart is mildly to moderately enlarged in size. Multi lead pacer/defibrillator device is present.
[2023-07-03] MEDS: FUROSEMIDE 20 MG/ 2ML VIAL IV SCH ×2 (08:54→20:59)
[2023-07-03] MEDS: CEFTRIAXONE 1,000 MG in NA CHLORIDE 0.9% 50 ML IVPB SCH (08:54)
[2023-07-03] MEDS: SACUBITRIL/VALSARTAN 24/26 MG TAB PO SCH ×2 (08:59→20:05)
[2023-07-03] MEDS: APIXABAN 2.5 MG TABLET PO SCH (08:59)
[2023-07-03] MEDS: FAMOTIDINE 20 MG/2 ML VIAL IV SCH (08:59)
--- NOTE | 2023-07-03 11:06 | P.PN ---
Subjective Date of Service: 07/03/23 Chief Complaint: Gram-negative bacteremia Subjective: Improving (Patient is improving no new complaints no fever or rigors) Review of Systems Unremarkable Physical Examination - Vital Signs Temperature: 97.7 F Blood Pressure: 148/70 Pulse: 70 Respirations: 14 Pulse Ox (%): 95 - Physical Exam General: Alert, Oriented x3 Respiratory: Clear to auscultation bilaterally Cardiovascular: No edema, Regular rate/rhythm, Normal S1 S2 Gastrointestinal: Normal bowel sounds, Soft and benign - Studies Microbiology Data (last 24 hrs): 07/01/23 20:08 Blood - Blood Blood Culture Gram Stain - Final 07/01/23 19:58 Blood - Blood Blood Culture Gram Stain - Final Assessment And Plan - Current Problems (Diagnosis) (1) Rigors Current Visit: Yes Status: Acute Plan: Patient is 88 years of age admitted with rigors he has gram-negative rods positive and blood cultures ID is pending White count declining source not apparent denies any abdominal complaint DC azithromycin for now continue with Rocephin Physician Review: Patient Assessed, Agree with Above Assessment and Plan
--- NOTE | 2023-07-03 13:44 | P.PN ---
(S) Pt seen sitting on the side of the bed, not needing O2, denies CP or dyspnea (O) Vitals reviewed in the EMR General: Alert, In no apparent distress, Cooperative HEENT: Atraumatic, Normocephalic Neck: Supple, Other (JVD difficult to appreciate) Respiratory: Normal air movement, Other (Dimished mildly at bases, no rhonchi or wheezing) Cardiovascular: Regular rate/rhythm, Other (Upper chest AICD), Systolic murmur Gastrointestinal: Soft and benign, Non-distended, No tenderness, No guarding Musculoskeletal: No swelling, No contractures Integumentary: No rashes, No tenderness/swelling Neurological: Normal speech, Normal tone, Normal affect Labs reviewed in the EMR Conclusions/Impression: A/P) 1. Abnormal results of kidney function studies, possibly representing some underlying earlier stage CKD NOS, eGFR calculators are not well validated in the elderly 2. Cr level on admission was lower than levels seen in this EMR from last year in summer and on repeat testing this AM has further downward trended 3. UA on admission unremarkable 4. Acute resp insufficiency 2nd to likely acute on chronic systolic CHF +/- PNA, unspecified organism. Abx per primary team given leukocytosis on admission. 5. Ischemic cardiomyopathy -BNP > 5000, cont Entresto. D/c NS IVF ordered yesterday. Cont IV lasix. Pt was not taking Lasix daily at home, may consider addition of Spironolactone to his regimen on discharge. Alfonso Davis MD, YOU[facility]
--- NOTE | 2023-07-03 13:57 | P.PN ---
Subjective Date of Service: 07/03/23 Chief Complaint: Gram-negative bacteremia Subjective: Improving Patient seen at bedside. Patient denies any signs or symptoms of distress. Continue supportive care. Review of Systems General: Unremarkable Eyes: Unremarkable ENT: Unremarkable Respiratory: Unremarkable Cardiovascular: Unremarkable Gastrointestinal: Unremarkable Genitourinary: Unremarkable Musculoskeletal: Unremarkable Integumentary: Unremarkable Neurological: Unremarkable Lymphatics: Unremarkable Physical Examination - Vital Signs Temperature: 97.6 F Blood Pressure: 114/59 Pulse: 73 Respirations: 14 Pulse Ox (%): 98 - Physical Exam General: Alert, In no apparent distress, Oriented x3, Cooperative HEENT: Atraumatic, PERRLA, EOMI Neck: Supple, JVD not distended Respiratory: Clear to auscultation bilaterally, Normal air movement Cardiovascular: No edema, Regular rate/rhythm, Normal S1 S2 Capillary refill: <2 Seconds Gastrointestinal: Normal bowel sounds, No tenderness Musculoskeletal: No tenderness Integumentary: No rashes, No significant lesion Neurological: Normal speech, Normal tone, Normal affect Lymphatics: No axilla or inguinal lymphadenopathy - Studies Microbiology Data (last 24 hrs): 07/01/23 20:08 Blood - Blood Blood Culture Gram Stain - Final 07/01/23 19:58 Blood - Blood Blood Culture Gram Stain - Final Assessment And Plan - Plan Interval history. 07/03/2023. Patient seen at bedside. Patient denies any signs and symptoms of distress. Blood cultures growing gram-negative rods. Infectious disease MD consulted. Continue antibiotics. We will await further recommendation from infectious disease MD. Radiation Control Worker on board. Continue supportive care. (1) Pneumonia (2) Dyspnea (3) Fever (4) Leucocytosis (5) sepsis * Patient came in with complaints of breathing difficulty. Patient reports shortness of breath at rest with light activity on symptom started today, the symptoms are continuous and steadily getting worse. Patient's shortness of breath is aggravated by coughing, talking, walking. Associated symptoms of fever, nonproductive cough, and dizziness. Patient has history of lung cancer and 2010 with right upper lobectomy. * Blood pressure 166/111, pulse of 125, respiration 30, temperature 98.4, pulse ox 92% on room air. Initial lab reports significant for leukocytosis WBC 17.6, lactic acid 2.8, BNP 2667 * Likely secondary to pneumonia Patient meets SIRS criteria based on temperature > 100.9 F , HR > 90 bpm, RR > 20 breaths/min = WBC > 12,000 and the suspected source is lungs. Plan: - Sepsis order set was initiated - Initial Lactate was 2.7, trend - Blood cultures drawn before antibiotics were given - Broad spectrum antibiotics started: Ceftriaxone and Zithromax - 30 mL/kg of IV fluids was not administered given SBP > 90, MAP > 65, lactic a shirin < 4 - Admitting the patient , O2 via nasal cannula as needed, bronchodilators as needed, antibiotics, pulmonology consult to Dr. Urbina -Monitor the patient closely (6) Afib (7) shelter (current) use of anticoagulants Current Visit: Yes Status: Chronic * Chronic controlled rate and patient is anticoagulated on Eliquis 2.5 p.o. twice daily * Patient denies any palpitation or chest pain * Will continue the current medication (8) CKD (chronic kidney disease) stage 3, GFR 30-59 ml/min * Acute, elevated BUN 29, creatinine 1.39, low GFR 48. * Nephrology consult, IV hydration, monitor lab CODE STATUS Full code DVT prophylaxis Eliquis Discharge Plan: Home Plan to discharge in: 48 Hours - Code Status/Comfort Care Code Status Assessed: Yes Physician Review: Patient Assessed, Agree with Above Assessment and Plan Critical Care: No
[2023-07-03] MEDS ORDERED: FUROSEMIDE 20 MG/ 2ML VIAL IV ONE (20:43)
[2023-07-04] MEDS: IPRATROPIUM BROM 0.5MG/2.5ML NEB SCH ×3 (01:35→14:00)
[2023-07-04 02:40] LABS: Absolute Lymphocytes (CBC) 2.7 K/uL (0.7-4.9); Hematocrit 38.9 % (39.6-49.0); Lymphocytes % 20.6 % (15.3-44.8); MCV 90.6 fL (80-100); MPV 8.1 fL (7.6-11.3); Platelets 94 thou/uL (152-406); RBC Red Blood Cell Count 4.29 M/uL (4.33-5.43)
[2023-07-04 03:10] LABS: Magnesium 2.1 mg/dL (1.6-2.4); Phosphorus 3.2 mg/dL (2.5-4.9); Potassium 3.9 mEq/L (3.5-5.1)
[2023-07-04] MEDS ORDERED: LEVOTHYROXINE SOD 0.075 MG TAB PO SCH (06:30)
--- NOTE | 2023-07-04 07:55 | P.PN ---
Subjective Date of Service: 07/04/23 Chief Complaint: Gram-negative bacteremia Subjective: Improving (Patient is improving he denies any complaints no shortness of breath no fever chills abdominal pain diarrhea) Review of Systems Unremarkable Physical Examination - Vital Signs Temperature: 98.5 F Blood Pressure: 143/77 Pulse: 65 Respirations: 18 Pulse Ox (%): 98 - Physical Exam General: Alert, In no apparent distress, Oriented x3 Respiratory: Clear to auscultation bilaterally Cardiovascular: No edema, Regular rate/rhythm, Normal S1 S2 Gastrointestinal: Normal bowel sounds, Soft and benign, Non-distended Musculoskeletal: No clubbing, No swelling - Studies Microbiology Data (last 24 hrs): 07/01/23 20:08 Blood - Blood Blood Culture Gram Stain - Final 07/01/23 19:58 Blood - Blood Blood Culture Gram Stain - Final Assessment And Plan - Current Problems (Diagnosis) (1) Rigors Current Visit: Yes Status: Acute Plan: Patient admitted with rigors he has gram-negative from Pseudomonas putida probably from the wound is an uncommon cause of skin and soft tissue infections patient is clinically improving Physician Review: Patient Assessed, Agree with Above Assessment and Plan
--- NOTE | 2023-07-04 08:32 | P.DS ---
Admission Date: 07/01/23 Discharge Date: 07/04/23 Disposition: ROUTINE DISCHARGE Discharge Condition: GOOD Reason for Admission: Gram-negative bacteremia - Problems (1) Rigors Current Visit: Yes Status: Acute Brief History of Present Illness: Patient is a 88 years of age mated with sudden onset of shaking spells currently he had traveled to [place] recently denies any cough phlegm complaining of shortness of breath right upper lobe lobectomy in 2010 no prior history of COPD or coronary artery disease patient does have a defibrillator no stents denies any chest pain Hospital Course: Patient is 88 years of age admitted with sepsis can [place] to the wound infection did well that was treated with antibiotics at the time of discharge alert oriented responsive cooperative no new complaints no rigors or fever his right- sided tibial wound infection look well-healed evelia to be removed prior to discharge blood cultures positive for Pseudomonas putida Found with patient is not allergic to any antibiotic except shellfish daughter present at the bedside Discharge patient on levofloxacin 250 mg daily starting 1127 for 7 days patient has congestive heart failure 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 in addition to chronic renal failure White count declined from 17-13,000 Vital Signs/Physical Exam: Temp Pulse Resp BP Pulse Ox 98.5 F 65 18 143/77 H 98 07/04/23 04:00 07/04/23 04:00 07/04/23 04:00 07/04/23 04:00 07/04/23 04:00 Laboratory Data at Discharge: WBC 13.10 thou/uL (4.3-10.9) H 07/04/23 02:15 Hgb 12.8 g/dL (13.6-17.9) L 07/04/23 02:15 Hct 38.9 % (39.6-49.0) L 07/04/23 02:15 Plt Count 94 thou/uL (152-406) L 07/04/23 02:15 PT 14.3 SECONDS (9.5-12.5) H 07/01/23 19:58 INR 1.30 07/01/23 19:58 Sodium 137 mEq/L (136-145) 07/04/23 02:15 Potassium 3.9 mEq/L (3.5-5.1) 07/04/23 02:15 BUN 45 mg/dL (7-18) H 07/04/23 02:15 Creatinine 1.43 mg/dL (0.70-1.30) H 07/04/23 02:15 Glucose 130 mg/dL (74-106) H 07/04/23 02:15 Phosphorus 3.2 mg/dL (2.5-4.9) 07/04/23 02:15 Magnesium 2.1 mg/dL (1.6-2.4) 07/04/23 02:15 Total Bilirubin 0.8 mg/dL (0.2-1.0) 07/01/23 19:58 AST 16 U/L (15-37) 07/01/23 19:58 ALT 19 U/L (16-61) 07/01/23 19:58 Alkaline Phosphatase 78 U/L (45-117) 07/01/23 19:58 Triglycerides 48 mg/dL (<150) 07/02/23 06:35 Cholesterol 93 mg/dL (<200) 07/02/23 06:35 HDL Cholesterol 44 mg/dL (40-60) 07/02/23 06:35 Cholesterol/HDL Ratio 2.11 07/02/23 06:35 Home Medications: Apixaban [Eliquis] 2.5 mg PO DAILY 01/30/22 Clonidine HCl [Catapres*] 0.2 mg PO BID 01/30/22 Digoxin [Lanoxin] 0.125 mg PO DAILY 01/30/22 Furosemide [Lasix] 40 mg PO T,TH,S 01/30/22 Isosorbide Mononitrate [Isosorbide Mononitrate ER] 30 mg PO DAILY 01/30/22 Levothyroxine Sodium [Levothyroxine] 150 mcg PO DAILY 01/30/22 carvediloL [Carvedilol] 6.25 mg PO DAILY 01/30/22 Sacubitril/Valsartan [Entresto 24 mg-26 mg Tablet] 24 - 26 mg PO BID 07/03/23 Levofloxacin [Levaquin] 250 mg PO DAILY 7 Days #7 tab 07/04/23 New Medications: Levofloxacin [Levaquin] 250 mg PO DAILY 7 Days #7 tab Physician Discharge Instructions: Please call in a prescription for levofloxacin 250 mg p.o. daily starting tomorrow to [facility] pharmacy in [place] Followup: Abhinav Hoang MD [Primary Care Provider] -
[2023-07-04] MEDS: FUROSEMIDE 20 MG/ 2ML VIAL IV SCH (09:00)
[2023-07-04] MEDS: SACUBITRIL/VALSARTAN 24/26 MG TAB PO SCH (09:00)
[2023-07-04] MEDS ORDERED: SPIRONOLACTONE 25 MG TABLET PO SCH (09:00)
[2023-07-04] MEDS ORDERED: DIGOXIN 0.125 MG TABLET PO SCH (09:00)
[2023-07-04] MEDS ORDERED: carvediloL 6.25 MG TAB PO SCH ×2 (09:00)
[2023-07-04] MEDS: APIXABAN 2.5 MG TABLET PO SCH (09:00)
[2023-07-04] MEDS: FAMOTIDINE 20 MG/2 ML VIAL IV SCH (09:00)
[2023-07-04] MEDS ORDERED: levoFLOXacin 500 MG TAB PO SCH (09:00)
[2023-07-04 09:43] VITALS: O2SAT 98
[2023-07-04 12:26] VITALS: BP 117/68; TEMP 97.5
--- NOTE | 2023-07-05 16:57 | EKG ---
Test Date: 2023-07-01 Test Time: 20:14:43 Technology Auditor: MEASUREMENT RESULTS: Intervals: Rate: 89 MO: QRSD: 158 QT: 388 QTc: 472 [place]: P: MO: QRS: -52 T: 120 INTERPRETIVE STATEMENTS: Atrial fibrillation with occasional ventricular-paced complexes Left axis deviation Left bundle branch block Abnormal ECG Compared to ECG 01/30/2022 11:14:57 Left-axis deviation now present Left bundle-branch block now present Ventricular premature complex(es) no longer present Electronically Signed On 07-05-23 16:53:18 INTERNAL AUDIT DIRECTOR by Prashant Wallace
== END 2023-07-04 14:20 | disposition home or self-care (01) | DRG 871 ==
LOC: ER 19:38 → ERHOLD 21:58 → 2ND 07-02 19:49
PROVIDERS: ADMIT Internal Medicine Nephrology; ATTEND Internal Medicine Nephrology
DX: A41.9 Sepsis, unspecified organism (principal); J18.9 Pneumonia, unspecified organism; I50.22 Chronic systolic (congestive) heart failure; I13.0 Hypertensive heart and chronic kidney disease with heart failure and stage 1 through stage 4 chronic kidney disease, or unspecified chronic kidney disease; N17.9 Acute kidney failure, unspecified; R65.20 Severe sepsis without septic shock; N18.31 Chronic kidney disease, stage 3a; E03.9 Hypothyroidism, unspecified; I48.0 Paroxysmal atrial fibrillation; I25.5 Ischemic cardiomyopathy; I25.10 Atherosclerotic heart disease of native coronary artery without angina pectoris; R06.89 Other abnormalities of breathing; Z66 Do not resuscitate; Z88.1 Allergy status to other antibiotic agents; Z88.8 Allergy status to other drugs, medicaments and biological substances; Z11.52 Encounter for screening for COVID-19; Z79.02 Long term (current) use of antithrombotics/antiplatelets; Z79.01 Long term (current) use of anticoagulants; Z90.49 Acquired absence of other specified parts of digestive tract; Z79.899 Other long term (current) drug therapy; Z95.810 Presence of automatic (implantable) cardiac defibrillator; Z85.118 Personal history of other malignant neoplasm of bronchus and lung; Z79.890 Hormone replacement therapy; Z91.048 Other nonmedicinal substance allergy status
CPT/HCPCS: 36415; 71045; 71250; 80048; 80061; 80076; 80162; 81003; 83605; 83735; 83880; 84100; 84146; 84439; 84443; 84484; 85025; 85610; 87040; 87077; 87186; 87205; 87804; 87811; 93005; 94760; 96365; 96375; 99285; J0696; J1940; J2930; J7030; J7050; J7614; J7644